=== PATIENT | male | born 1955 | race Caucasian/White ===

== ENCOUNTER → 2017-12-05 | Outpatient (CLI) | payer OTHER ==
--- NOTE | 2017-12-05 14:18 | RADIOLOGY REPORT (SQ) ---
EXAM DESCRIPTION: SHOULDER LEFT 2 OR MORE VIEWS COMPLETED DATE/TIME: 12/05/2017 1:02 pm REASON FOR STUDY: PAIN IN LEFT SHOULDER M25.512 PAIN IN LEFT SHOULDER COMPARISON: None. NUMBER OF VIEWS: Three views. TECHNIQUE: Internal rotation, external rotation, and Y view images acquired of the left shoulder. LIMITATIONS: None. FINDINGS: MINERALIZATION: Normal. BONES: No acute fracture or dislocation. No worrisome bone lesions. JOINTS: Moderate bony spurring at the AC joint and along the undersurface of the acromion. No AC kervin nt widening. No glenohumeral joint malalignment VISUALIZED LUNGS AND RIBS: No pneumothorax. No rib fracture. SOFT TISSUES: No radiopaque foreign body. OTHER: No other significant finding. IMPRESSION: No acute findings. Bony spurring at the AC joint and undersurface of the acromion. Thi s could correlate with rotator cuff disease TECHNICAL DOCUMENTATION: JOB ID: [id number] [employer]- All Rights Reserved Reading location - IP/workstation name: [email or web address]
== END ==
LOC: OD 12:26
PROVIDERS: ATTEND Family Medicine
DX: M25.512 Pain in left shoulder (principal)

== ENCOUNTER → 2017-12-27 | Outpatient (CLI) | payer OTHER ==
--- NOTE | 2017-12-27 15:33 | RADIOLOGY REPORT (SQ) ---
EXAM DESCRIPTION: MRI LT UPPER JOINT WITHOUT COMPLETED DATE/TIME: 12/27/2017 8:52 am REASON FOR STUDY: M25.512 PAIN LT SHLD,M75.102 ROTATOR CUFF TEAR, M75.02 ADH CAPSULITIS LT S M25.51 2 PAIN IN LEFT SHOULDER COMPARISON: None. TECHNIQUE: Left shoulder images acquired and stored on PACS. Multiplanar imaging to include fat sens itive sequences such as T1, water sensitive sequences such as FST2/STIR, cartilage sensitive sequence s such as FSPD/gradient-echo sequences. LIMITATIONS: Motion. Positioned in internal rotation. FINDINGS: BONE MARROW AND CORTEX: Enchondroma surgical neck. JOINT OR BURSAL EFFUSION: No significant bursal fluid accumulation. GLENO-HUMERAL ARTICULATION: Intact. Central cartilage loss. ACROMION AND AC JOINT: Type 2. Moderate AC joint arthropathy. ROTATOR CUFF AND INTERVAL: There is mild fatty infiltration of the teres minor. Diffuse tendinosis. Mild interstitial tearing and peritendinitis of the supraspinatus tendon. No full-thickness tear. Fibrosis in the rotator interval. Thickening of the inferior joint capsule. LABRUM AND BICEPS LABRAL COMPLEX: Attenuated biceps anchor. Fraying of the superior labrum without significant extension into the biceps. Distal biceps is normal. REMAINDER OF LABRUM AND IGHL : Intact. Mild thickening of the inferior glenohumeral ligament. PERIARTICULAR AND ADJACENT SOFT TISSUES: No masses or abnormal nodes. OTHER: No other significant finding. IMPRESSION: 1. Findings suggestive of adhesive capsulitis. 2. Cuff tendinosis. Mild interstitial tearing and peritendinitis of the supraspinatus tendon. Mild fatty infiltration of the teres minor. 3. Fraying of the superior labrum suggesting possible degenerative slap tear. No significant extensi on into the biceps. Tendinopathy and attenuated biceps. 4. AC joint arthropathy with narrowing of the subacromial space. TECHNICAL DOCUMENTATION: JOB ID: [id number] [employer]- All Rights Reserved Reading location - IP/workstation name: [email or web address]
== END ==
LOC: RAD 07:55
PROVIDERS: ATTEND Orthopaedic Surgery Sports Medicine
DX: M25.512 Pain in left shoulder (principal); M75.102 Unspecified rotator cuff tear or rupture of left shoulder, not specified as traumatic; M75.02 Adhesive capsulitis of left shoulder

== ENCOUNTER → 2018-04-27 | Outpatient (CLI) | payer OTHER ==
[2018-04-27 12:14] LABS: ABSOLUTE BASOPHILS # (AUTO) 0.1 10^3/uL (0.0-0.2); ABSOLUTE EOSINOPHILS # (AUTO) 0.2 10^3/uL (0.0-0.6); ABSOLUTE LYMPHOCYTES (AUTO) 2.1 10^3/uL (0.5-4.7); ABSOLUTE MONOCYTES (AUTO) 0.9 10^3/uL (0.1-1.4); ABSOLUTE NEUT (AUTO) 5.6 10^3/uL (1.7-8.2); BASOPHILS % (AUTO) 0.6 % (0-2); EOSINOPHILS % (AUTO) 2.7 % (0-6); HEMOGLOBIN 16.1 g/dL (13.5-17.0); LYMPHOCYTES % (AUTO) 23.4 % (13-45); MEAN CORPUSCULAR HEMOGLOBIN 28.5 pg (27.0-33.4); MEAN CORPUSCULAR HGB CONC 34.2 g/dL (32.0-36.0); MEAN CORPUSCULAR VOLUME 83 fl (80-97); MONOCYTES % (AUTO) 9.8 % (3-13); PLATELET COUNT 204 10^3/uL (150-450); RED BLOOD COUNT 5.65 10^6/uL (4.35-5.55); SEGMENTED NEUTROPHILS % (AUTO) 63.5 % (42-78); TOTAL CELLS COUNTED % (AUTO) 100 %; WHITE BLOOD COUNT 8.9 10^3/uL (4.0-10.5)
[2018-04-27 12:36] LABS: ALANINE AMINOTRANSFERASE 30 U/L (21-72); ALBUMIN 4.3 g/dL (3.5-5.0); ALKALINE PHOSPHATASE 89 U/L (38-126); ANION GAP 11 (5-19); ASPARTATE AMINO TRANSFERASE 21 U/L (17-59); BILIRUBIN,DIRECT 0.3 mg/dL (0.0-0.4); BILIRUBIN,TOTAL 0.3 mg/dL (0.2-1.3); BLOOD UREA NITROGEN 25 mg/dL (7-20); CALCIUM 9.5 mg/dL (8.4-10.2); CARBON DIOXIDE 23 mmol/L (22-30); CHLORIDE 107 mmol/L (98-107); GLUCOSE 210 mg/dL (75-110); POTASSIUM 4.3 mmol/L (3.6-5.0); SODIUM 140.9 mmol/L (137-145); TOTAL PROTEIN 7.4 g/dL (6.3-8.2)
--- NOTE | 2018-04-27 13:05 | EKG REPORT ---
SEVERITY:- OTHERWISE NORMAL ECG - SINUS RHYTHM BORDERLINE LEFT AXIS DEVIATION : Confirmed by: Keyshawn Barnes MD 27-Apr-2018 13:05:04
== END ==
LOC: OD 11:20
PROVIDERS: ATTEND Physician Assistant
DX: I10 Essential (primary) hypertension (principal); Z11.2 Encounter for screening for other bacterial diseases; M25.512 Pain in left shoulder
CPT/HCPCS: 36415; 80053; 83036; 85025; 87070; 93005; 93010

== ENCOUNTER → 2018-10-12 | Outpatient (CLI) | payer OTHER ==
--- NOTE | 2018-10-12 18:42 | RADIOLOGY REPORT (SQ) ---
EXAM DESCRIPTION: LUMBAR SPINE COMPLETE COMPLETED DATE/TIME: 10/12/2018 4:43 pm REASON FOR STUDY: RT HIP PAIN M25.551 PAIN IN RIGHT HIP COMPARISON: None. NUMBER OF VIEWS: Five views including obliques. TECHNIQUE: AP, lateral, oblique, and sacral radiographic images acquired of the lumbar spine. LIMITATIONS: None. FINDINGS: MINERALIZATION: Normal. SEGMENTATION: Normal. No transitional anatomy. ALIGNMENT: Normal. VERTEBRAE: Maintained height. No fracture or worrisome bone lesion. DISCS: Mild disc narrowing at L4-5. Marginal osteophytes are present. POSTERIOR ELEMENTS: Hypertrophic facet changes are present from L4-S1. HARDWARE: None in the spine. PARASPINAL SOFT TISSUES: Normal. PELVIS: Intact as visualized. No fractures or worrisome bone lesions. SI joints intact. OTHER: No other significant finding. IMPRESSION: Degenerative disc disease, spondylosis, and facet arthropathy. TECHNICAL DOCUMENTATION: JOB ID: [id number] [employer]- All Rights Reserved Reading location - IP/workstation name: [email or web address]
--- NOTE | 2018-10-12 18:42 | RADIOLOGY REPORT (SQ) ---
EXAM DESCRIPTION: HIP RIGHT AP/LATERAL COMPLETED DATE/TIME: 10/12/2018 4:43 pm REASON FOR STUDY: RT HIP PAIN M25.551 PAIN IN RIGHT HIP COMPARISON: None. NUMBER OF VIEWS: Two views. TECHNIQUE: AP pelvis and additional frog-leg view of the right hip. LIMITATIONS: None. FINDINGS: MINERALIZATION: Normal. RIGHT HIP: No fracture or dislocation. No worrisome bone lesions. LEFT HIP: No fracture or dislocation. No worrisome bone lesions. PUBIS AND ISCHIUM: No fracture. PELVIS: No fracture. SACRUM: No fracture or dislocation. No worrisome bone lesions. LOWER LUMBAR SPINE: No fracture or dislocation. No worrisome bone lesions. No significant disc disea se. SOFT TISSUES: No findings. OTHER: No other significant finding. IMPRESSION: NEGATIVE STUDY OF THE RIGHT HIP. NO RADIOGRAPHIC EVIDENCE OF ACUTE INJURY. TECHNICAL DOCUMENTATION: JOB ID: [id number] [employer]- All Rights Reserved Reading location - IP/workstation name: [email or web address]
== END ==
LOC: OD 16:24
PROVIDERS: ATTEND Family Medicine
DX: M25.551 Pain in right hip (principal); M51.36 Other intervertebral disc degeneration, lumbar region; M47.896 Other spondylosis, lumbar region
CPT/HCPCS: 72110

== ENCOUNTER → 2018-11-18 | Outpatient (CLI) | payer OTHER ==
--- NOTE | 2018-11-18 12:02 | RADIOLOGY REPORT (SQ) ---
EXAM DESCRIPTION: MRI LUMBAR SPINE WITHOUT COMPLETED DATE/TIME: 11/18/2018 8:11 am REASON FOR STUDY: ACUTE MIDLINE LOW BACK PAIN W/SCIATICA (M54.40) M54.10 RADICULOPATHY, SITE UNSPEC IFIED COMPARISON: Conventional radiographs dated 10/12/2018 TECHNIQUE: Sagittal and Axial imaging includes T1, T2, STIR and gradient echo sequences. Coronal T2/ HASTE imaging. LIMITATIONS: None. FINDINGS: VISUALIZED UPPER ABDOMEN: Limited evaluation. No acute or suspicious findings suggested. SEGMENTATION: No transitional anatomy. The lowest well-developed disc space is labeled L5-S1. ALIGNMENT: Anatomic. VERTEBRAE: Intact. BONE MARROW: Normal. No marrow replacement or reactive changes. DISC SIGNAL: Loss of normal water signal at L4-L5 to a lesser extent L5-S1. POSTERIOR ELEMENTS: Generally intact. No pars defect evident. HARDWARE: None in the spine. CORD AND CONUS: Normal in size and signal intensity. Conus at the appropriate level. SOFT TISSUES: No aortic aneurysm seen. No bulky retroperitoneal adenopathy or mass. No paraspinal mas s or fluid. L1-L2: No significant spinal stenosis or exit foraminal stenosis. L2-L3: No significant spinal stenosis or exit foraminal stenosis. L3-L4: No significant spinal stenosis or exit foraminal stenosis. L4-L5: There is annular bulging with a focal protrusion on the right. Despite this there is no nerve root impingement. Neural foramina are patent. There is bilateral facet arthropathy. L5-S1: Focal right lateral disc protrusion. This results in mass effect on the exiting right nerve r oot. There is facet arthropathy as well. LOWER THORACIC: Incompletely imaged. No stenosis seen. SACRUM: Visualized upper sacrum intact. OTHER: No other significant findings. IMPRESSION: Disc degenerative disease is limits at L4-L5 and L5-S1 as described above. There is a f ocal right lateral protrusion at L5-S1 resulting in mass effect on the exiting nerve root. TECHNICAL DOCUMENTATION: JOB ID: [id number] [employer]- All Rights Reserved Reading location - IP/workstation name: [email or web address]
== END ==
LOC: RAD 07:21
PROVIDERS: ATTEND Family Medicine
DX: M51.17 Intervertebral disc disorders with radiculopathy, lumbosacral region (principal)
CPT/HCPCS: 72148

== ENCOUNTER 2019-11-13 21:12 | Inpatient (IN) | payer OTHER ==
--- NOTE | 2019-11-13 21:46 | ER Document Report ---
ED Medical Screen (RME) - General Chief Complaint: Abdominal Pain >50 Stated Complaint: ABDOMINAL PAIN Time Seen by Provider: 11/13/19 21:40 Primary Care Provider: YASH PATEL MD [Primary Care Provider] - Follow up as needed Mode of Arrival: Wheelchair Information source: Patient Notes: Patient is a 64-year-old male comes emergency room complaining of severe abdo vishal pain. Patient states it started approximately 1 PM had sudden onset. Between then and 5 PM patient has developed increasing girth of his belly and increasing pain. He is also developed hiccups. Patient has a history of a cholecystectomy. He thinks he might have a history of a hernia in the past as well. But right now his pain is diffuse across his abdomen and he is exceptionally gassy. Physical examination: Patient is a well-nourished well-developed 64-year-old male who is morbidly obese however he he appears exceptionally uncomfortable in obvious discomfort and pain. In a sitting position patient appears miserable he is having hiccups every couple of minutes as well. Cardiac: Patient displays regular rate and rhythm with no murmurs noted on auscultation. Lungs: Bilateral breath sounds decreased throughout no rhonchi rales or wheeze are heard. Abdomen: Patient has bowel sounds vaguely in all quads but is distended. He also has moderate tympany noted in the upper and lower quadrants while in a sitting position so possibility of a perforation versus small bowel obstruction. I have greeted and performed a rapid initial assessment of this patient. A comprehensive ED assessment and evaluation of the patient, analysis of test results and completion of the medical decision making process will be conducted by additional ED providers. Dictation of this chart was performed using voice recognition software; therefore, there may be some unintended grammatical errors. TRAVEL OUTSIDE OF THE [place] IN LAST 30 DAYS: No - Related Data Allergies/Adverse Reactions: penicillin G [Penicillin G] Allergy (Verified 06/24/12 20:27) Past Medical History - Past Medical History Cardiac Medical History: Reports: Hx Hypercholesterolemia, Hx Hypertension Endocrine Medical History: Reports: Hx Diabetes Mellitus Type 2 Past Surgical History: Reports: Hx Adenoidectomy, Hx Orthopedic Surgery, Hx Tonsillectomy - and addenoids - Immunizations Immunizations up to date: No Hx Diphtheria, Pertussis, Tetanus Vaccination: No Physical Exam - Vital signs Vitals: Temp Pulse Resp BP Pulse Ox 97.6 F 93 18 144/104 H 93 11/13/19 21:18 11/13/19 21:18 11/13/19 21:18 11/13/19 21:18 11/13/19 21:18 Course - Vital Signs Vital signs: Temp Pulse Resp BP Pulse Ox 97.6 F 93 18 144/104 H 93 11/13/19 21:18 11/13/19 21:18 11/13/19 21:18 11/13/19 21:18 11/13/19 21:18 Doctor's Discharge - Discharge Referrals: YASH PATEL MD [Primary Care Provider] - Follow up as needed
--- NOTE | 2019-11-13 22:09 | RADIOLOGY REPORT (SQ) ---
EXAM DESCRIPTION: CT scan of the abdomen and pelvis without contrast CLINICAL HISTORY: 64 years Male; ? Perf TECHNIQUE: CT of the abdomen and pelvis with intravenous contrast.. Oral contrastWas not used. All CT scans at this facility use dose modulation, iterative reconstruction, and/or weight based dosing when appropriate to reduce radiation dose to as low as reasonably achievable. This exam was performed according to our department optimization program which includes automated exposure control, adjustment of the mA and/or kv according to patient size and/or use of iterative reconstruction technique. COMPARISON: CT scan of the abdomen and pelvis June 25, 2012 FINDINGS: Lower chest: Minimal dependent density in the lung bases. Heart size is normal. In the right posterior chest wall is a lobulated soft tissue mass with peripheral calcifications. It measures 4.9 x 3.8 cm. Previously it measured 4.3 x 3.4 cm. The mass indents the posterior aspect of the liver. It appears to be centered in the posterior chest wall. Given the presence of the lesion since 2012 and six only slight increase in size is most likely represents a process such as a neurofibroma. It appears to be associated with the undersurface of the lower right rib. Abdomen: Liver and biliary tree: The unenhanced liver is unremarkable. The gallbladder surgically absent. Pancreas: Normal Spleen:Within normal limits Kidneys: Kidneys are normal in size shape and position. There is mild perinephric soft tissue stranding which is similar to the previous exam. No stones or hydronephrosis. Adrenal glands:Within normal limits Vascular structures: Scattered vascular calcifications in the aorta. Retroperitoneum: No mass or lymphadenopathy Abdominal wall: normal GI: There is multiple moderately dilated loops of small bowel seen in the mid abdomen. The distal small bowel is decompressed in the colon is decompressed. The transition zone is in the left mid abdomen in the source of the obstruction is unclear. This may represent a process such as adhesions. Appendix: The appendix is not clearly seen General: No free air. No free fluid Pelvis: Lymph nodes: No mass or lymphadenopathy Bladder: Unremarkable. Pelvis: No pelvic mass or adenopathy. Bones: No acute bone findings. IMPRESSION: 1. Abnormal bowel gas pattern suggesting partial small bowel obstruction. The transition is in the left upper quadrant. The source of the bowel obstruction is unclear and this may represent adhesions. 2. Lobulated soft tissue mass with peripheral calcification seen in the right chest wall associated with the undersurface of a rib. This is only minimally increased in size when compared to an exam from 2013 suggesting a slow-growing process such as a neurofibroma or schwannoma.
[2019-11-13] MEDS ORDERED: ONDANSETRON HCL INJ/PF 4 MG/2 ML SDV IV ONE (23:20)
[2019-11-13] MEDS ORDERED: MORPHINE SULFATE 10 MG/ML INJ IV ONE (23:20)
[2019-11-13] MEDS ORDERED: NORMAL SALINE 1000 ML 1,000 ML IV ONE (23:20)
--- NOTE | 2019-11-13 23:22 | ER Document Report ---
ED GI/ - General Chief Complaint: Abdominal Pain >50 Stated Complaint: ABDOMINAL PAIN Time Seen by Provider: 11/13/19 21:40 Mode of Arrival: Wheelchair Notes: Patient is a 64-year-old male who comes emergency department for chief complaint of severe abdominal pain and swelling of the abdomen. He states that approxim ately 1 PM he suddenly started having discomfort, then around 5 PM he felt like his abdomen increased in size and he started having severe waves of pain. He states he got hiccups but he denies of nausea or vomiting. He had a bowel movement that was normal this morning. He has had a cholecystectomy, he denies any abdominal surgeries otherwise. He denies history of bowel obstruction. He has a history of hypertension, hyperlipidemia, type 2 diabetes. He denies smoking or alcohol. His primary care is Dr. Shah. TRAVEL OUTSIDE OF THE [place] IN LAST 30 DAYS: No - Related Data Allergies/Adverse Reactions: penicillin G [Penicillin G] Allergy (Verified 06/24/12 20:27) Past Medical History - General Information source: Patient - Social History Smoking Status: Never Smoker Frequency of alcohol use: None Drug Abuse: None Lives with: Family Family History: Reviewed & Not Pertinent - Past Medical History Cardiac Medical History: Reports: Hx Hypercholesterolemia, Hx Hypertension Endocrine Medical History: Reports: Hx Diabetes Mellitus Type 2 Past Surgical History: Reports: Hx Adenoidectomy, Hx Orthopedic Surgery, Hx Tonsillectomy - and addenoids - Immunizations Hx Diphtheria, Pertussis, Tetanus Vaccination: Yes Review of Systems - Review of Systems Constitutional: No symptoms reported EENT: No symptoms reported Cardiovascular: No symptoms reported Respiratory: No symptoms reported Gastrointestinal: See HPI Genitourinary: No symptoms reported Male Genitourinary: No symptoms reported Musculoskeletal: No symptoms reported Skin: No symptoms reported Hematologic/Lymphatic: No symptoms reported Neurological/Psychological: No symptoms reported Physical Exam - Vital signs Vitals: Temp Pulse Resp BP Pulse Ox 97.6 F 93 18 144/104 H 93 11/13/19 21:18 11/13/19 21:18 11/13/19 21:18 11/13/19 21:18 11/13/19 21:18 - Notes Notes: GENERAL: Alert, interacts well. Appears slightly uncomfortable HEAD: Normocephalic, atraumatic. EYES: Pupils equal, round, and reactive to light. Extraocular movements intact. ENT: Oral mucosa moist, tongue midline. Oropharynx unremarkable. Airway patent. LUNGS: Clear to auscultation bilaterally, no wheezes, rales, or rhonchi. No respiratory distress. Non-tender chest wall. HEART: Regular rate and rhythm. No murmur ABDOMEN: Distended and generally tender although there is no guarding, rigidity, or rebound tenderness. Bowel sounds are quiet. EXTREMITIES: Moves all 4 extremities spontaneously. No edema, normal radial and dorsalis pedis pulses bilaterally. No cyanosis. BACK: no cervical, thoracic, lumbar midline tenderness. No saddle anesthesia, normal distal neurovascular exam. Moves all extremities in full range of motion. NEUROLOGICAL: Alert and oriented x3. Normal speech. Cranial nerves II through XII grossly intact. Strength 5/5 in all extremities. PSYCH: Normal affect, normal mood. SKIN: Warm, dry, normal turgor. No rashes or lesions noted. Course - Re-evaluation Re-evalutation: Patient with an obese and also a slightly distended abdomen which is firm but not rigid, there is some generalized tenderness but no guarding, patient is slightly uncomfortable but does not appear to be in distress. Vital signs unremarkable. CBC shows leukocytosis at 17,000 with elevation of neutrophils. Chemistry unremarkable. Lactic acid is not elevated. Urine unremarkable. I did review CAT scan of the abdomen pelvis without IV or oral contrast from triage and this does indicate developing versus present small bowel obstruction with transition point. No other acute findings. Patient comfortable after medications. Will discuss with general surgery. Discussed with Dr. Michel, he reviewed the imaging, he recommends NG tube and accepts patient to admission under his service. I discussed this with patient and significant other, they state appreciation and agreement with plan. - Vital Signs Vital signs: Temp Pulse Resp BP Pulse Ox 97.4 F 101 H 18 161/77 H 96 11/14/19 03:12 11/14/19 03:12 11/14/19 03:12 11/14/19 03:12 11/14/19 03:12 - Laboratory Result Diagrams: 11/13/19 23:20 11/13/19 23:20 Laboratory results interpreted by me: 11/13/19 11/13/19 11/13/19 23:20 23:20 23:20 WBC 17.2 H RBC 5.94 H RDW 15.7 H Seg Neuts % (Manual) 95 H Band Neutrophils % 1 L Lymphocytes % (Manual) 2 L Monocytes % (Manual) 2 L Abs Neuts (Manual) 16.5 H Abs Lymphs (Manual) 0.3 L Sodium 136.1 L BUN 22 H Glucose 272 H Urine Glucose (UA) >=500 H Urine Ketones 20 H Discharge - Discharge Clinical Impression: Small bowel obstruction Abdominal pain Qualifiers: Abdominal location: generalized Qualified Code(s): R10.84 - Generalized abdominal pain Condition: Stable Disposition: ADMITTED INPATIENT Admitting Provider: Surgicalist Unit Admitted: Surgical Floor
[2019-11-13 23:44] LABS: HEMOGLOBIN 16.9 g/dL (13.5-17.0); MEAN CORPUSCULAR HEMOGLOBIN 28.5 pg (27.0-33.4); MEAN CORPUSCULAR HGB CONC 33.2 g/dL (32.0-36.0); MEAN CORPUSCULAR VOLUME 86 fl (80-97); PLATELET COUNT 206 10^3/uL (150-450); RED BLOOD COUNT 5.94 10^6/uL (4.35-5.55); RED CELL DISTRIBUTION WIDTH 15.7 % (11.5-14.0); WHITE BLOOD COUNT 17.2 10^3/uL (4.0-10.5)
[2019-11-13 23:54] LABS: ALBUMIN 4.8 g/dL (3.5-5.0); ALKALINE PHOSPHATASE 78 U/L (38-126); ANION GAP 12 (5-19); ASPARTATE AMINO TRANSFERASE 27 U/L (17-59); BILIRUBIN,DIRECT 0.1 mg/dL (0.0-0.4); BILIRUBIN,TOTAL 0.7 mg/dL (0.2-1.3); BLOOD UREA NITROGEN 22 mg/dL (7-20); CALCIUM 9.9 mg/dL (8.4-10.2); CARBON DIOXIDE 25 mmol/L (22-30); CHLORIDE 99 mmol/L (98-107); GLUCOSE 272 mg/dL (75-110); POTASSIUM 4.9 mmol/L (3.6-5.0); TOTAL PROTEIN 8.1 g/dL (6.3-8.2)
[2019-11-13 23:56] LABS: APPEARANCE,URINE CLEAR; BILIRUBIN,URINE NEGATIVE (NEGATIVE); COLOR,URINE YELLOW; GLUCOSE, URINE >=500 mg/dL (NEGATIVE); KETONES,URINE 20 mg/dL (NEGATIVE); LEUKOCYTE ESTERASE,URINE NEGATIVE (NEGATIVE); NITRITE,URINE NEGATIVE (NEGATIVE); PROTEIN,URINE NEGATIVE (NEGATIVE); UROBILINOGEN,URINE NEGATIVE mg/dL (<2.0)
[2019-11-14 00:02] LABS: ABSOLUTE LYMPHOCYTES# (MANUAL) 0.3 10^3/uL (0.5-4.7); ABSOLUTE MONOCYTES # (MANUAL) 0.3 10^3/uL (0.1-1.4); BAND NEUTROPHILS % (MANUAL) 1 % (3-5); BASOPHILS % (MANUAL) 0 % (0-2); EOSINOPHILS % (MANUAL) 0 % (0-6); LYMPHOCYTES % (MANUAL) 2 % (13-45); MONOCYTES % (MANUAL) 2 % (3-13); SEGMENTED NEUTROPHILS % (MAN) 95 % (42-78); TOTAL CELLS COUNTED 100
[2019-11-14 00:05] LABS: ANISOCYTOSIS SLIGHT; PLATELET COMMENT ADEQUATE
[2019-11-14] MEDS ORDERED: ONDANSETRON HCL INJ/PF 4 MG/2 ML SDV IV PRN (01:20)
[2019-11-14] MEDS ORDERED: DEXTROSE 50%-WATER 25 GM/50 ML DISP.SYRIN IV PRN ×2 (01:25)
[2019-11-14] MEDS ORDERED: DEXTROSE 40% GEL 15 GM TUBE PO PRN ×2 (01:25)
[2019-11-14] MEDS ORDERED: GLUCAGON,HUMAN RECOMB 1 MG INJ IM PRN (01:25)
--- NOTE | 2019-11-14 02:56 | RADIOLOGY REPORT (SQ) ---
EXAM DESCRIPTION: XR ABDOMEN 1 VIEW (KUB) COMPLETED DATE/TME: 11/14/2019 00:00 CLINICAL HISTORY: ng tube placement COMPARISON: 11/13/2019 FINDINGS: NG tube with tip and side-port curled in the stomach. Dilated loops of small bowel again identified. No free intraperitoneal air. Degenerative change of the spine. Prior cholecystectomy. IMPRESSION: 1. NG tube in appropriate position. 2. Findings compatible small bowel obstruction.
[2019-11-14] MEDS: MORPHINE SULFATE 10 MG/ML INJ IV PRN ×4 (03:36→21:30)
[2019-11-14] MEDS: POTASSI CL 20 MEQ/1/2NS 1L 20 MEQ/1,000 ML RTUINJ IV PRN ×2 (03:36→15:08)
[2019-11-14] MEDS: INSULIN LISPRO 100 UNIT/ML 3 ML VIAL SUBCUT SCH ×4 (08:32→21:52)
--- NOTE | 2019-11-14 09:58 | PDOC H&P ---
History of Present Illness Admission Date/PCP: 11/14/19 01:30 YASH PATEL MD Patient complains of: Abdominal pain and nausea History of Present Illness: HCUCKY VASQUEZ is a 64 year old male with a 1 day history of sharp, stabbing abdominal pain and nausea. The patient reports his pain is rated as 8 out of 10. It waxes and wanes, but never goes away. It does not radiate. He has had nausea, without vomiting. The last time he passed flatus was yesterday. He has not had a bowel movement in 2 days. The patient presented to the emergency room, where a CT scan was obtained showing a small bowel obstruction. The patient was admitted for treatment. The patient reports that he feels "much better" after having an NG tube placed. The patient denies chest pain, shortness of breath, headache, fevers, chills, melena, hematochezia, hematemesis, orthostasis, fatigue, or malaise. Past Medical History Cardiac Medical History: Reports: Hyperlipidema, Hypertension Endocrine Medical History: Reports: Diabetes Mellitus Type 2 Psychiatric Medical History: Denies: Depression Past Surgical History Past Surgical History: Reports: Orthopedic Surgery, Tonsillectomy - and addenoids Social History Lives with: Family Smoking Status: Never Smoker Electronic Cigarette use?: No Frequency of Alcohol Use: None Hx Recreational Drug Use: No Drugs: None Hx Prescription Drug Abuse: No Family History Family History: Reviewed & Not Pertinent Parental Family History Reviewed: Yes Children Family History Reviewed: Yes Sibling(s) Family History Reviewed.: Yes Medication/Allergy Home Medications: Glimepiride [Amaryl 4 Mg Tablet] 8 mg PO QHS 06/24/12 Empagliflozin/Metformin HCl [Synjardy Xr 12.5-1,000 mg Tab] 1 tab PO BID 11/14/19 Insulin Degludec [Tresiba Flextouch U-200] 100 units SUBCUT QHS 11/14/19 Lisinopril/Hydrochlorothiazide [Lisinopril-Hctz 10-12.5 mg Tab] 1 tab PO DAILY 11/14/19 Pioglitazone HCl [Actos 30 mg Tablet] 30 mg PO DAILY 11/14/19 Semaglutide [Ozempic] 0.25 mg SUBCUT WE@1000 PRN 11/14/19 Simvastatin [Zocor 10 mg Tablet] 10 mg PO QHS 11/14/19 Allergies/Adverse Reactions: penicillin G [Penicillin G] Allergy (Verified 06/24/12 20:27) Review of Systems Constitutional: ABSENT: anorexia, chills, fatigue, fever(s), headache(s) Eyes: ABSENT: visual disturbances Ears: ABSENT: hearing changes Nose, Mouth, and Throat: ABSENT: sore throat Cardiovascular: ABSENT: chest pain Respiratory: ABSENT: cough Gastrointestinal: PRESENT: abdominal pain, bloating, nausea. ABSENT: hematemesis, hematochezia, melena, vomiting Genitourinary: ABSENT: dysuria Musculoskeletal: ABSENT: back pain Integumentary: ABSENT: pruritus, rash Neurological: ABSENT: confusion, convulsions, dizziness Psychiatric: ABSENT: anxiety, depression Endocrine: ABSENT: cold intolerance, heat intolerance Hematologic/Lymphatic: ABSENT: easy bleeding, easy bruising Physical Exam Vital Signs: Temp Pulse Resp BP Pulse Ox 97.6 F 94 16 138/79 H 94 11/14/19 07:33 11/14/19 07:33 11/14/19 07:33 11/14/19 07:33 11/14/19 07:33 Intake & Output 11/13/19 11/14/19 11/15/19 06:59 06:59 06:59 Intake Total 1000 Output Total 100 Balance 900 Weight 121 kg General appearance: PRESENT: no acute distress, cooperative Head exam: PRESENT: atraumatic, normocephalic Eye exam: PRESENT: EOMI, PERRLA. ABSENT: scleral icterus Mouth exam: PRESENT: neck supple Neck exam: ABSENT: meningismus, tenderness, thyromegaly, tracheal deviation Respiratory exam: PRESENT: unlabored. ABSENT: chest wall tenderness, tachypnea, wheezes Cardiovascular exam: ABSENT: tachycardia Vascular exam: PRESENT: normal capillary refill GI/Abdominal exam: PRESENT: distended - mild, soft. ABSENT: rigid, tenderness Rectal exam: PRESENT: deferred Extremities exam: ABSENT: clubbing Musculoskeletal exam: ABSENT: deformity Neurological exam: PRESENT: alert, awake, oriented to person, oriented to place, oriented to time, oriented to situation, CN II-XII grossly intact. ABSENT: motor sensory deficit Psychiatric exam: ABSENT: agitated, anxious, depressed Focused psych exam: ABSENT: delusional Skin exam: ABSENT: cyanosis, erythema, jaundice Results Laboratory Results: 11/13/19 23:20 11/13/19 23:20 11/13/19 11/13/19 11/13/19 23:20 23:20 23:20 WBC 17.2 H RBC 5.94 H Hgb 16.9 Hct 51.0 MCV 86 MCH 28.5 MCHC 33.2 RDW 15.7 H Plt Count 206 Seg Neutrophils % Not Reportable Sodium 136.1 L Potassium 4.9 Chloride 99 Carbon Dioxide 25 Anion Gap 12 BUN 22 H Creatinine 1.16 Est GFR ( Amer) > 60 Glucose 272 H Lactic Acid Calcium 9.9 Total Bilirubin 0.7 AST 27 Alkaline Phosphatase 78 Total Protein 8.1 Albumin 4.8 Lipase 164.8 Urine Color YELLOW Urine Appearance CLEAR Urine pH 5.0 Ur Specific [place] 1.030 Urine Protein NEGATIVE Urine Glucose (UA) >=500 H Urine Ketones 20 H Urine Blood NEGATIVE Urine Nitrite NEGATIVE Ur Leukocyte Esterase NEGATIVE Urine WBC (Auto) 0 11/14/19 00:45 WBC RBC Hgb Hct MCV MCH MCHC RDW Plt Count Seg Neutrophils % Sodium Potassium Chloride Carbon Dioxide Anion Gap BUN Creatinine Est GFR ( Amer) Glucose Lactic Acid 1.2 Calcium Total Bilirubin AST Alkaline Phosphatase Total Protein Albumin Lipase Urine Color Urine Appearance Urine pH Ur Specific [place] Urine Protein Urine Glucose (UA) Urine Ketones Urine Blood Urine Nitrite Ur Leukocyte Esterase Urine WBC (Auto) Impressions: Abdomen/Pelvis CT 11/13/19 21:40 IMPRESSION: 1. Abnormal bowel gas pattern suggesting partial small bowel obstruction. The transition is in the left upper quadrant. The source of the bowel obstruction is unclear and this may represent adhesions. 2. Lobulated soft tissue mass with peripheral calcification seen in the right chest wall associated with the undersurface of a rib. This is only minimally increased in size when compared to an exam from 2013 suggesting a slow-growing process such as a neurofibroma or schwannoma. KUB X-Ray 11/14/19 00:00 IMPRESSION: 1. NG tube in appropriate position. 2. Findings compatible small bowel obstruction. Assessment & Plan - Diagnosis (1) Abdominal pain Qualifiers: Abdominal location: generalized Qualified Code(s): R10.84 - Generalized abdominal pain Is this a current diagnosis for this admission?: Yes (2) Small bowel obstruction Is this a current diagnosis for this admission?: Yes - Plan Summary Plan Summary: This is a 64-year-old male, without a significant surgical history, presenting with signs of a bowel obstruction on noncontrasted CT scan. I will admit the patient to the hospital, initiate IV fluids, and maintain NG decompression. I will order a small bowel follow-through in hopes of better identifying the area of obstruction, if present. We will await these results, before deciding further steps in care. Continue NG decompression for now.
--- NOTE | 2019-11-14 21:56 | RADIOLOGY REPORT (SQ) ---
EXAM DESCRIPTION: Small bowel follow-through performed on 11/14/2019 12:00 AM CDT CLINICAL HISTORY: 64 years Male, eval for SBO. contrast through NG; ; COMPARISON: Prior CT dated 11/13/2019 FINDINGS: 12 radiographs were obtained. Initial images at 1032 hours reveal an enteric drainage tube with its tip located in the gastric body. Contrast is evident about the gastric antrum as well as within the small bowel. On the two-hour post-administration radiograph, the pre-existing oral contrast material which was located within the small bowel has dissipated. Instead, a large amount of contrast material simply resides within the gastric fundus/body. Likewise, there is persistent diffuse dilatation of small bowel loops throughout the abdomen with additional moderate amount of colonic stool. On the 4 hour post-administration radiograph, there is persistent diffuse dilatation of small bowel loops throughout the abdomen. Pre-existing oral contrast material within the gastric fundus/body remains unchanged in configuration from the previous 2 hour radiograph. Subsequent AR radiographs were acquired. These radiographs demonstrate persistent diffuse dilatation of small bowel loops throughout the abdomen. Only a small amount of contrast material extends into the gastric antrum/duodenal bulb. The majority of the oral contrast material still resides within the gastric fundus/body. IMPRESSION: Findings are consistent with small bowel obstruction. The administered oral contrast material mostly remains within the gastric fundus/body on the 8 hour post-administration radiographs, indicating delayed transit of material into the small bowel.
[2019-11-15] MEDS: POTASSI CL 20 MEQ/1/2NS 1L 20 MEQ/1,000 ML RTUINJ IV PRN (00:22)
[2019-11-15 06:35] LABS: ABSOLUTE LYMPHOCYTES (AUTO) 1.1 10^3/uL (0.5-4.7); ABSOLUTE MONOCYTES (AUTO) 1.3 10^3/uL (0.1-1.4); ABSOLUTE NEUT (AUTO) 12.1 10^3/uL (1.7-8.2); BASOPHILS % (AUTO) 0.3 % (0-2); EOSINOPHILS % (AUTO) 0.3 % (0-6); HEMATOCRIT 48.6 % (37.9-51.0); LYMPHOCYTES % (AUTO) 7.3 % (13-45); MEAN CORPUSCULAR HEMOGLOBIN 28.4 pg (27.0-33.4); MEAN CORPUSCULAR VOLUME 86 fl (80-97); MONOCYTES % (AUTO) 8.8 % (3-13); PLATELET COUNT 206 10^3/uL (150-450); RED BLOOD COUNT 5.63 10^6/uL (4.35-5.55); RED CELL DISTRIBUTION WIDTH 15.9 % (11.5-14.0); SEGMENTED NEUTROPHILS % (AUTO) 83.3 % (42-78); TOTAL CELLS COUNTED % (AUTO) 100 %; WHITE BLOOD COUNT 14.6 10^3/uL (4.0-10.5)
[2019-11-15 07:06] LABS: ANION GAP 14 (5-19); BLOOD UREA NITROGEN 29 mg/dL (7-20); CALCIUM 9.3 mg/dL (8.4-10.2); CARBON DIOXIDE 21 mmol/L (22-30); CHLORIDE 105 mmol/L (98-107); GLUCOSE 196 mg/dL (75-110); POTASSIUM 5.2 mmol/L (3.6-5.0)
[2019-11-15] MEDS: INSULIN LISPRO 100 UNIT/ML 3 ML VIAL SUBCUT SCH ×4 (07:59→23:29)
[2019-11-15] MEDS: MORPHINE SULFATE 10 MG/ML INJ IV PRN ×2 (08:02→19:50)
[2019-11-15] MEDS ORDERED: POTASSI CL 20 MEQ/1/2NS 1L 20 MEQ/1,000 ML RTUINJ IV PRN (08:33)
--- NOTE | 2019-11-15 08:38 | PDOC PROGRESS REPORT ---
Subjective Progress Note for:: 11/15/19 Reason For Visit: SMALL BOWL OBSTRUCTION Patient states he is on abdominal pain, requiring narcotics. States he passed gas x2. NG tube drained 800 cc overnight Physical Exam Vital Signs: Temp Pulse Resp BP Pulse Ox 98.2 F 105 H 15 142/80 H 94 11/15/19 00:00 11/15/19 00:00 11/15/19 00:00 11/15/19 00:00 11/15/19 00:00 Intake & Output 11/14/19 11/15/19 11/16/19 06:59 06:59 06:59 Intake Total 1000 1923 Output Total 100 2024 Balance 900 -102 Weight 121 kg 120.6 kg General appearance: PRESENT: well-nourished, other - Discomfort GI/Abdominal exam: PRESENT: other - Abdomen is distended, diffusely tender to deep palpation. Hypoactive bowel sounds. Results Laboratory Results: 11/15/19 06:17 11/15/19 06:17 11/15/19 11/15/19 06:17 06:17 WBC 14.6 H RBC 5.63 H Hgb 16.0 Hct 48.6 MCV 86 MCH 28.4 MCHC 33.0 RDW 15.9 H Plt Count 206 Seg Neutrophils % 83.3 H Sodium 140.0 Potassium 5.2 H Chloride 105 Carbon Dioxide 21 L Anion Gap 14 BUN 29 H Creatinine 1.27 H Est GFR ( Amer) > 60 Glucose 196 H Calcium 9.3 Impressions: Abdomen/Pelvis CT 11/13/19 21:40 IMPRESSION: 1. Abnormal bowel gas pattern suggesting partial small bowel obstruction. The transition is in the left upper quadrant. The source of the bowel obstruction is unclear and this may represent adhesions. 2. Lobulated soft tissue mass with peripheral calcification seen in the right chest wall associated with the undersurface of a rib. This is only minimally increased in size when compared to an exam from 2013 suggesting a slow-growing process such as a neurofibroma or schwannoma. KUB X-Ray 11/14/19 00:00 IMPRESSION: 1. NG tube in appropriate position. 2. Findings compatible small bowel obstruction. Small Bowel X-Ray 11/14/19 00:00 IMPRESSION: Findings are consistent with small bowel obstruction. The administered oral contrast material mostly remains within the gastric fundus/body on the 8 hour post-administration radiographs, indicating delayed transit of material into the small bowel. Assessment & Plan - Diagnosis (1) Small bowel obstruction Is this a current diagnosis for this admission?: Yes Plan: Impression: Persisting abdominal distention, pain, nasogastric drainage all concerning for small bowel obstruction and diabetic with dehydration Conditions: 1. Increase IV fluids 2. Consult internal medicine 3. Check abdominal film; patient may require exploratory laparotomy (2) Diabetes mellitus Is this a current diagnosis for this admission?: Yes (3) Acute renal insufficiency Is this a current diagnosis for this admission?: Yes (4) Dehydration Is this a current diagnosis for this admission?: Yes (5) Abdominal pain Qualifiers: Abdominal location: generalized Qualified Code(s): R10.84 - Generalized abdominal pain Is this a current diagnosis for this admission?: Yes
--- NOTE | 2019-11-15 10:07 | RADIOLOGY REPORT (SQ) ---
EXAM DESCRIPTION: KUB/ABDOMEN (SINGLE VIEW) IMAGES COMPLETED DATE/TIME: 11/15/2019 9:56 am REASON FOR STUDY: sbo COMPARISON: 11/14/2019 NUMBER OF VIEWS: One view. TECHNIQUE: Supine radiographic image of the abdomen acquired. LIMITATIONS: None. FINDINGS: BOWEL GAS PATTERN: There is contrast in the colon. Persistent small-bowel distention. Fi ndings would suggest either adynamic ileus or partial small bowel obstruction. CALCIFICATIONS: No suspicious calcifications. SOFT TISSUES: No gross mass or suggestion of organomegaly. HARDWARE: None in the abdomen. BONES: No acute fracture. No worrisome bone lesions. OTHER: No other significant finding. IMPRESSION: Contrast has reached the colon. Findings are consistent with either adynamic ileus or p artial small bowel obstruction. TECHNICAL DOCUMENTATION: JOB ID: [id number] 2010 [employer]- All Rights Reserved Reading location - IP/workstation name: [email or web address]
[2019-11-15] MEDS ORDERED: SUCCINYLCHOLINE CHLORIDE INJ 200 MG/10 ML VIAL ONE (12:24)
[2019-11-15] MEDS ORDERED: LIDOCAINE 2% INJ-PF (20 MG/ML) 2 ML AMPUL ONE (12:24)
[2019-11-15] MEDS ORDERED: KETOROLAC TROMETHAMINE 60 MG/2 ML SDV ONE (12:24)
[2019-11-15] MEDS ORDERED: ROCURONIUM BROMIDE INJ 50 MG/5 ML VIAL IV ONE (12:24)
[2019-11-15] MEDS ORDERED: DEXAMETHASONE SOD PHOSPHATE INJ 4 MG/1 ML VIAL ONE (12:24)
[2019-11-15] MEDS ORDERED: ONDANSETRON HCL INJ/PF 4 MG/2 ML SDV ONE (12:24)
--- NOTE | 2019-11-15 12:33 | PDOC CONSULTATION ---
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 hyperlipidemia and morbid obesityCame to the emergency department with the complaint was severe abdominal pain and nausea and vomiting Patients have a history of the cholecystectomy in 2012 Patient's denied any previous heart disease Patient's denied any contact with any COVID In the emergency department patient's CT scan of the abdomen pelvis suggest a small bowel obstructions and patient admitting in the surgical service Surgery wants to follow the medical management Patient is currently have a type 2 diabetes and insulin-dependent currently stable see the joiner helper Hypertensions currently all well controlled Patient's last LDL less than 100 Patient's denied any smoking no alcohol Patient's otherwise doing fair after putting the NG tube still burping and surgery planning to do the laparotomy today With the multiple risk factor we will get the cardiac clearance before the surgery and the COVID testings before the surgery Past Medical History Cardiac Medical History: Reports: Hyperlipidema, Hypertension Endocrine Medical History: Reports: Diabetes Mellitus Type 2 Psychiatric Medical History: Denies: Depression Past Surgical History Past Surgical History: Reports: Cholecystectomy, Orthopedic Surgery, Tonsillectomy - and addenoids Social History Lives with: Family Smoking Status: Never Smoker Electronic Cigarette use?: No Frequency of Alcohol Use: None Hx Recreational Drug Use: No Drugs: None Hx Prescription Drug Abuse: No - Advance Directive Resuscitation Status: Full Code Family History Family History: Reviewed & Not Pertinent Parental Family History Reviewed: Yes Children Family History Reviewed: Yes Sibling(s) Family History Reviewed.: Yes Medication/Allergy Home Medications: Glimepiride [Amaryl 4 Mg Tablet] 8 mg PO QHS 06/24/12 Empagliflozin/Metformin HCl [Synjardy Xr 12.5-1,000 mg Tab] 1 tab PO BID 11/14/19 Insulin Degludec [Tresiba Flextouch U-200] 100 units SUBCUT QHS 11/14/19 Lisinopril/Hydrochlorothiazide [Lisinopril-Hctz 10-12.5 mg Tab] 1 tab PO DAILY 11/14/19 Pioglitazone HCl [Actos 30 mg Tablet] 30 mg PO DAILY 11/14/19 Semaglutide [Ozempic] 0.25 mg SUBCUT WE@1000 PRN 11/14/19 Simvastatin [Zocor 10 mg Tablet] 10 mg PO QHS 11/14/19 Allergies/Adverse Reactions: penicillin G [Penicillin G] Allergy (Verified 06/24/12 20:27) Review of Systems Constitutional: ABSENT: chills, fever(s), headache(s), weight gain, weight loss Eyes: ABSENT: visual disturbances Ears: ABSENT: hearing changes Cardiovascular: ABSENT: chest pain, dyspnea on exertion, edema, orthropnea, palpitations Respiratory: ABSENT: cough, hemoptysis Gastrointestinal: PRESENT: abdominal pain, nausea, vomiting. ABSENT: constipation, diarrhea, hematemesis, hematochezia Genitourinary: ABSENT: dysuria, hematuria Musculoskeletal: ABSENT: joint swelling Integumentary: ABSENT: rash, wounds Neurological: ABSENT: abnormal gait, abnormal speech, confusion, dizziness, focal weakness, syncope Psychiatric: ABSENT: anxiety, depression, homidical ideation, suicidal ideation Endocrine: ABSENT: cold intolerance, heat intolerance, menstrual abnormalities, polydipsia, polyuria Hematologic/Lymphatic: ABSENT: easy bleeding, easy bruising, lymphadenopathy Physical Exam Vital Signs: Temp Pulse Resp BP Pulse Ox 97.7 F 100 20 145/73 H 94 11/15/19 08:00 11/15/19 08:00 11/15/19 08:00 11/15/19 08:00 11/15/19 08:00 Intake & Output 11/14/19 11/15/19 11/16/19 06:59 06:59 06:59 Intake Total 1000 1923 827 Output Total 100 2025 Balance 900 -102 827 Weight 121 kg 120.6 kg General appearance: PRESENT: no acute distress, morbidly obese, well-developed, well-nourished Head exam: PRESENT: atraumatic, normocephalic Eye exam: PRESENT: conjunctiva pink, EOMI, PERRLA. ABSENT: scleral icterus Ear exam: PRESENT: normal external ear exam Mouth exam: PRESENT: moist, tongue midline Neck exam: PRESENT: full ROM. ABSENT: carotid bruit, JVD, lymphadenopathy, thyromegaly Cardiovascular exam: PRESENT: RRR. ABSENT: diastolic murmur, rubs, systolic murmur Pulses: PRESENT: normal dorsalis pedis pul, +2 pedal pulses bilateral Vascular exam: PRESENT: normal capillary refill GI/Abdominal exam: PRESENT: hypoactive bowel sounds, tenderness. ABSENT: distended, guarding, mass, organolmegaly, rebound Rectal exam: PRESENT: deferred Neurological exam: PRESENT: alert, awake, oriented to person, oriented to place, oriented to time, oriented to situation, CN II-XII grossly intact. ABSENT: motor sensory deficit Psychiatric exam: PRESENT: appropriate affect, normal mood. ABSENT: homicidal ideation, suicidal ideation Skin exam: PRESENT: dry, intact, warm. ABSENT: cyanosis, rash Results Laboratory Results: 11/15/19 06:17 11/15/19 06:17 11/15/19 11/15/19 06:17 06:17 WBC 14.6 H RBC 5.63 H Hgb 16.0 Hct 48.6 MCV 86 MCH 28.4 MCHC 33.0 RDW 15.9 H Plt Count 206 Seg Neutrophils % 83.3 H Sodium 140.0 Potassium 5.2 H Chloride 105 Carbon Dioxide 21 L Anion Gap 14 BUN 29 H Creatinine 1.27 H Est GFR ( Amer) > 60 Glucose 196 H Calcium 9.3 Impressions: Abdomen/Pelvis CT 11/13/19 21:40 IMPRESSION: 1. Abnormal bowel gas pattern suggesting partial small bowel obstruction. The transition is in the left upper quadrant. The source of the bowel obstruction is unclear and this may represent adhesions. 2. Lobulated soft tissue mass with peripheral calcification seen in the right chest wall associated with the undersurface of a rib. This is only minimally increased in size when compared to an exam from 2013 suggesting a slow-growing process such as a neurofibroma or schwannoma. Small Bowel X-Ray 11/14/19 00:00 IMPRESSION: Findings are consistent with small bowel obstruction. The administered oral contrast material mostly remains within the gastric fundus/body on the 8 hour post-administration radiographs, indicating delayed transit of material into the small bowel. KUB X-Ray 11/15/19 06:00 IMPRESSION: Contrast has reached the colon. Findings are consistent with either adynamic ileus or partial small bowel obstruction. Assessment & Plan - Diagnosis (1) Abdominal pain Qualifiers: Abdominal location: generalized Qualified Code(s): R10.84 - Generalized abdominal pain Is this a current diagnosis for this admission?: Yes Plan: Patient is most likely small bowel obstructions currently follow with the lashell pepper (2) Hypertension Qualifiers: Hypertension type: essential hypertension Qualified Code(s): I10 - Essential (primary) hypertension Is this a current diagnosis for this admission?: Yes Plan: Currently all stable (3) Acute renal insufficiency Is this a current diagnosis for this admission?: Yes Plan: Continues to IV fluid (4) Dehydration Is this a current diagnosis for this admission?: Yes Plan: Continues to IV fluid (5) Diabetes mellitus Qualifiers: Diabetes mellitus type: type 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 (6) Small bowel obstruction Is this a current diagnosis for this admission?: Yes Plan: Currently on NG tube n.p.o. and IV fluid will correct the electrolytes - Time Time Spent: 50 to 70 Minutes Medications reviewed and adjusted accordingly: Yes Anticipated discharge: Home Anticipated DC Timeframe: Other - Inpatient Certification Based on my medical assessment, after consideration of the patient's comorbidities, presenting symptoms, or acuity I expect that the services needed warrant INPATIENT care.: Yes I certify that my determination is in accordance with my understanding of [facility] 's requirements for reasonable and necessary INPATIENT services [42 CFR 412.3e].: Yes Medical Necessity: Significant Comorbidiites Make Outpatient Treatment Too Risky, Need Close Monitoring Due to Risk of Patient Decompensation, Need For IV Fluids, Need for Surgery Post Hospital Care: 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
[2019-11-15] MEDS: NORMAL SALINE 1000 ML 1,000 ML IV PRN ×2 (12:56→22:48)
[2019-11-15] MEDS ORDERED: BUPIVACAINE INJ/PF LIPOSOME/PF 266 MG/20 ML SDV ONE ×2 (13:32→15:53)
--- NOTE | 2019-11-15 14:28 | XCELERA REPORT ---
[address] [address] Transthoracic Echocardiogram Report Name: CHUCKY VASQUEZ Age: 64 yrs Gender: Male : 1955 Patient Status: Inpatient Patient Location: [address] [place], [place] [address] Study Date: 11/15/2019 12:19 PM Height: 71 in Weight: 265 lb BSA: 2.4 m2 Procedure: A complete two-dimensional transthoracic echocardiogram was performed (2D, M-mode, spectral and color flow Doppler). The study was technically difficult with many images being suboptimal in quality. Reason For Study: htn/dm/sob/pre op Ordering Physician: YASH PATEL Performed By: Maribel Terry Interpretation Summary FINDINGS: technically difficult. LEFT VENTRICLE: LV Systolic function: LVEF is felt to be within normal limits. Best estimate is approximately LVEF is 60 to 65%. LV Diastolic Function: Grade II diastolic dysfunction noted. Wall motion: not all wall segment were well visualised. Regional wall motion cannot be accurately commented upon. Left ventricular chamber size: is within normal limit. Left ventricular wall thickness: is increased indicative of borderline LVH. RIGHT VENTRICLE: RV systolic function: is felt to be within normal limit. Right Ventricle Size: is borderline enlarged. LEFT ATRIUM size: is WNL. RIGHT ATRIUM size: is within normal limit. INTER ATRIAL SEPTUM: No definite atrial septal defect noted however a small PFO could be missed. AORTIC ROOT: seems to be within normal limits. ASCENDING AORTA: is not well visualized. INFERIOR VENA CAVA: was not well visualized. VALVES: MITRAL VALVE: Leaflets are mildly thickened. Mobility seems to be within normal limits. Mitral Regurgitation: Trace mitral regurgitation is noted. Mitral Stenosis: No mitral stenosis noted. Mitral valve prolapse: none noted. AORTIC VALVE: all leaflets not well visualised but with mild thickening and adequate excursion. Aortic stenosis: No aortic stenosis noted. Aortic regurgitation: No aortic incompetence noted. TRICUSPID VALVE: mobility and structures within normal limit. Tricuspid stenosis: no tricuspid stenosis noted. Tricuspid regurgitation: trace to mild tricuspid regurgitation noted. Estimated RVS : 30-35 mm Hg consistent with borderline pulmonary hypertension. PULMONARY VALVE: was not well visualized but no significant abnormalities suspected. Pulmonary stenosis: no pulmonary stenosis noted. Pulmonary regurgitation: no significant pulmonary regurgitation noted. MASSES AND THROMBUS: No definite intracardiac thrombus or masses are noted. PERICARDIUM: No pericardial effusion was noted. IMPRESSION: 1. Normal LVEF. 2. Borderline LVH noted. 3. Grade II Diastolic Dysfunction noted. 4. No significant valvular stenosis or regurgitation noted. 5. Right ventricle is borderline dilated. RVSP borderline elevated, consistent with borderline pulmonary hypertension. 6. Echocardiogram was technically difficult therefore clinical correlation is requested. MMode/2D Measurements & Calculations RVDd: 2.6 cm LVIDd: 5.5 cm FS: 34.8 % Ao root diam: 3.7 cm IVSd: 1.2 cm LVIDs: 3.6 cm EDV(Teich): 144.8 ml Ao root area: 10.5 cm2 LVPWd: 1.2 cm ESV(Teich): 52.8 ml EF(Teich): 63.5 % Doppler Measurements & Calculations MV E max anisa: MV dec slope: Ao V2 max: LV V1 max P.3 cm/sec 471.2 cm/sec2 129.8 cm/sec 5.1 mmHg MV A max anisa: MV dec time: 0.19 secAo max PG: LV V1 max: 131.9 cm/sec 6.7 mmHg 112.9 cm/sec MV E/A: 0.66 PA V2 max: TR max anisa: 78.3 cm/sec 260.0 cm/sec PA max P.5 mmHg TR max P.0 mmHg : YASH PATEL Shyamal
--- NOTE | 2019-11-15 14:32 | EKG REPORT ---
SEVERITY:- OTHERWISE NORMAL ECG - SINUS TACHYCARDIA BORDERLINE LEFT AXIS DEVIATION : Confirmed by: Kaylen Kam MD 15-Nov-2019 14:32:00
[2019-11-15] MEDS ORDERED: FENTANYL CITRATE INJ/PF 100 MCG/2 ML AMPUL ONE (14:47)
[2019-11-15] MEDS ORDERED: FENTANYL CITRATE INJ/PF 250 MCG/5 ML AMPULE ONE (14:47)
[2019-11-15] MEDS ORDERED: MIDAZOLAM 2 MG/2 ML INJ ONE (14:47)
[2019-11-15] MEDS ORDERED: MORPHINE SULFATE 10 MG/ML INJ ONE (14:48)
[2019-11-15] MEDS ORDERED: PROPOFOL INJ 200 MG/20 ML VIAL IV ONE (14:48)
[2019-11-15] MEDS ORDERED: METRONIDAZOLE 500 MG/NS RTU 500 MG/100 ML RTUPB IV ONE (15:07)
[2019-11-15] MEDS ORDERED: SUGAMMADEX SODIUM 200 MG/2 ML SDV IV ONE (15:48)
[2019-11-15] MEDS ORDERED: FENTANYL CITRATE INJ/PF 100 MCG/2 ML AMPUL IV PRN ×3 (16:07)
[2019-11-15] MEDS ORDERED: DIPHENHYDRAMINE HCL 50 MG/ML VIAL IV PRN (16:07)
[2019-11-15] MEDS ORDERED: PROMETHAZINE HCL INJ 25 MG/1 ML VIAL IV PRN ×2 (16:07)
[2019-11-15] MEDS ORDERED: MEPERIDINE HCL/PF INJ 25 MG/1 ML DISP.SYRIN IV PRN (16:07)
[2019-11-15] MEDS ORDERED: MORPHINE SULFATE 10 MG/ML INJ IV PRN (16:07)
--- NOTE | 2019-11-15 16:31 | Operative Report ---
Operative Report DATE OF SURGERY: 11/15/19 PREOPERATIVE DIAGNOSIS: 1. Incomplete small bowel obstruction. 2. Diabetes m ellitus. 3. Obesity POSTOPERATIVE DIAGNOSIS: Same with patient of the anterior abdominal wall kinking the jejunum OPERATION: 1. Exploratory laparotomy. 2. Lysis of adhesions. 3. Deployment of Exparel into the subcutaneous tissues SURGEON: SUDHAKAR TAYLOR ANESTHESIA: GA TISSUE REMOVED OR ALTERED: none COMPLICATIONS: None ESTIMATED BLOOD LOSS: 20 cc INTRAOPERATIVE FINDINGS: See below PROCEDURE: The patient was taken from the preop holding area to the main operating room where general anesthesia was induced. Castanon catheter was inserted. The abdomen was exposed, clipped of hair, prepped and draped in sterile fashion with Betadine Surgical plan and surgical timeout were conducted. The abdomen was opened through a standard midline incision above and below the umbilicus through an incision approximately 13 cm in length. The peritoneal cavity was sharply entered. There was no evidence of pus, stool, only minimal ascites. There were multiple dilated loops of small bowel, injected and violaceous in areas. I extended the incision a little bit below the umbilicus, and there was a loop of small bowel adhesed to the anterior abdominal wall likely at the site of the patient's previous laparoscopy scar. The loop of bowel was taken down sharply with scissors. Once this loop was relieved, I was able to open up the midline fascia for the entire length of the skin incision. I eviscerated the small bowel in its entirety. Proximally in the first portion of the jejunum the patient was found to have a incidental diverticulum. The small bowel was dilated primarily in the distal jejunum to the point of the previously released adhesion. Distal to the adhesion the small bowel slowly assumed a more normal caliber, and the ileum was essentially unremarkable. Manual palpation of the colon Including the right, transverse, left as well as the rectosigmoid area revealed no pathology. We checked the position of the NG tube and is felt to be satisfactory. We now milked the dilated jejunum in a retrograde fashion advancing the fluid and air up into the stomach where it was decompressed through the previously placed nasogastric tube. Once this was accomplished, the small bowel began to lysed in appearance, particularly the several loops of injected bowel with the violaceous transverse streaking. Bowel was not frankly ischemic so it was left as is. We inspected the antimesenteric side of the distal jejunum at the site of the adhesio lysis and there was felt to be no violation of the bowel. This point we felt the operation was complete. There was no indication to extend the incision and explore the patient any further. Sponge and needle counts are correct. Small little bleeders from the skin and subcutaneous tissue were cauterized. The abdominal wall was closed with 2 double-stranded #1 PDS sutures, the skin approximated analia. Sterile honeycomb dressing applied. Patient tolerated procedure well, extubated, and taken to recovery in stable condition. Abdominal binder was placed in the recovery room.
[2019-11-15] MEDS: PANTOPRAZOLE SODIUM 40 MG VIAL IV SCH (21:12)
[2019-11-16] MEDS: NORMAL SALINE 1000 ML 1,000 ML IV PRN ×4 (04:03→21:22)
[2019-11-16] MEDS: INSULIN LISPRO 100 UNIT/ML 3 ML VIAL SUBCUT SCH ×4 (06:14→23:48)
[2019-11-16 07:22] LABS: ABSOLUTE MONOCYTES (AUTO) 1.4 10^3/uL (0.1-1.4); ABSOLUTE NEUT (AUTO) 10.5 10^3/uL (1.7-8.2); BASOPHILS % (AUTO) 0.3 % (0-2); EOSINOPHILS % (AUTO) 0.3 % (0-6); HEMATOCRIT 48.2 % (37.9-51.0); HEMOGLOBIN 15.6 g/dL (13.5-17.0); LYMPHOCYTES % (AUTO) 7.4 % (13-45); MEAN CORPUSCULAR HEMOGLOBIN 28.2 pg (27.0-33.4); MEAN CORPUSCULAR HGB CONC 32.3 g/dL (32.0-36.0); MEAN CORPUSCULAR VOLUME 87 fl (80-97); MONOCYTES % (AUTO) 10.7 % (3-13); PLATELET COUNT 185 10^3/uL (150-450); RED BLOOD COUNT 5.52 10^6/uL (4.35-5.55); RED CELL DISTRIBUTION WIDTH 15.8 % (11.5-14.0); SEGMENTED NEUTROPHILS % (AUTO) 81.3 % (42-78); TOTAL CELLS COUNTED % (AUTO) 100 %; WHITE BLOOD COUNT 12.9 10^3/uL (4.0-10.5)
[2019-11-16 07:48] LABS: ANION GAP 10 (5-19); BLOOD UREA NITROGEN 33 mg/dL (7-20); CALCIUM 8.4 mg/dL (8.4-10.2); CARBON DIOXIDE 23 mmol/L (22-30); CHLORIDE 110 mmol/L (98-107); GLUCOSE 159 mg/dL (75-110); POTASSIUM 5.1 mmol/L (3.6-5.0)
--- NOTE | 2019-11-16 09:08 | PDOC PROGRESS REPORT ---
Subjective Progress Note for:: 11/16/19 Subjective:: feels ok this am min pain Reason For Visit: SMALL BOWL OBSTRUCTION Physical Exam Vital Signs: Temp Pulse Resp BP Pulse Ox 97.5 F 106 H 17 130/67 H 95 11/15/19 22:00 11/15/19 22:00 11/15/19 22:00 11/15/19 22:00 11/15/19 22:00 Intake & Output 11/15/19 11/16/19 11/17/19 06:59 06:59 06:59 Intake Total 1922 3400 Output Total 2024 2424 Balance -102 975 Weight 120.6 kg 120.6 kg General appearance: PRESENT: no acute distress Head exam: PRESENT: normocephalic Eye exam: PRESENT: EOMI Ear exam: PRESENT: normal external ear exam Mouth exam: PRESENT: moist Neck exam: PRESENT: full ROM Respiratory exam: PRESENT: clear to auscultation imelda Cardiovascular exam: PRESENT: RRR Pulses: PRESENT: normal femoral pulses, normal dorsalis pedis pul Vascular exam: PRESENT: normal capillary refill Breast: PRESENT: Normal GI/Abdominal exam: PRESENT: soft, other - wound clean dry. Rectal exam: PRESENT: deferred Extremities exam: PRESENT: full ROM Musculoskeletal exam: PRESENT: full ROM Neurological exam: PRESENT: awake, oriented to person, oriented to place Psychiatric exam: PRESENT: appropriate affect Skin exam: PRESENT: dry Results Laboratory Results: 11/16/19 06:22 11/16/19 06:22 11/15/19 11/16/19 11/16/19 06:17 06:22 06:22 WBC 12.9 H RBC 5.52 Hgb 15.6 Hct 48.2 MCV 87 MCH 28.2 MCHC 32.3 RDW 15.8 H Plt Count 185 Seg Neutrophils % 81.3 H Sodium 142.9 Potassium 5.1 H Chloride 110 H Carbon Dioxide 23 Anion Gap 10 BUN 33 H Creatinine 1.16 Est GFR ( Amer) > 60 Glucose 159 H Calcium 8.4 Lipase 156.0 Impressions: Abdomen/Pelvis CT 11/13/19 21:40 IMPRESSION: 1. Abnormal bowel gas pattern suggesting partial small bowel obstruction. The transition is in the left upper quadrant. The source of the bowel obstruction is unclear and this may represent adhesions. 2. Lobulated soft tissue mass with peripheral calcification seen in the right chest wall associated with the undersurface of a rib. This is only minimally increased in size when compared to an exam from 2013 suggesting a slow-growing process such as a neurofibroma or schwannoma. Small Bowel X-Ray 11/14/19 00:00 IMPRESSION: Findings are consistent with small bowel obstruction. The administered oral contrast material mostly remains within the gastric fundus/body on the 8 hour post-administration radiographs, indicating delayed transit of material into the small bowel. KUB X-Ray 11/15/19 06:00 IMPRESSION: Contrast has reached the colon. Findings are consistent with either adynamic ileus or partial small bowel obstruction. Assessment & Plan - Plan Summary Plan Summary: pod 1 from ex lap for sbo and lysis of adhesions doing ok this am feesl ok c/o ng tube plan dc rivers ambulate await return of bowel function.
[2019-11-16] MEDS: PANTOPRAZOLE SODIUM 40 MG VIAL IV SCH ×2 (10:04→21:14)
--- NOTE | 2019-11-16 10:46 | PDOC PROGRESS REPORT ---
Subjective Progress Note for:: 11/16/19 Subjective:: Patient underwent further expiratory laparotomy for this partial small bowel obstructions currently doing well Patient's denied any chest pain no short of breath Patient seen by the surgery today postoperatively suggest to walk in hallway continues the NG tube still good output in the NG tube Patient unable to use a CPAP due to the NG tube last night Reason For Visit: SMALL BOWL OBSTRUCTION Physical Exam Vital Signs: Temp Pulse Resp BP Pulse Ox 97.9 F 79 21 H 129/60 H 97 11/16/19 08:53 11/16/19 08:53 11/16/19 08:53 11/16/19 08:53 11/16/19 08:53 Intake & Output 11/15/19 11/16/19 11/17/19 06:59 06:59 06:59 Intake Total 1922 3400 1000 Output Total 2024 2425 700 Balance -102 975 300 Weight 120.6 kg 120.6 kg General appearance: PRESENT: no acute distress, well-developed, well-nourished Head exam: PRESENT: atraumatic, normocephalic Eye exam: PRESENT: conjunctiva pink, EOMI, PERRLA. ABSENT: scleral icterus Ear exam: PRESENT: normal external ear exam Mouth exam: PRESENT: moist, tongue midline Neck exam: PRESENT: full ROM. ABSENT: carotid bruit, JVD, lymphadenopathy, thy romegaly Respiratory exam: PRESENT: clear to auscultation imelda Cardiovascular exam: PRESENT: RRR. ABSENT: diastolic murmur, rubs, systolic murmur Pulses: PRESENT: normal dorsalis pedis pul, +2 pedal pulses bilateral Vascular exam: PRESENT: normal capillary refill GI/Abdominal exam: ABSENT: distended, guarding, mass, organolmegaly, rebound, tenderness Additonal comments: Surgical dressing is intact Rectal exam: PRESENT: deferred Neurological exam: PRESENT: alert, awake, oriented to person, oriented to place, oriented to time, oriented to situation, CN II-XII grossly intact. ABSENT: motor sensory deficit Psychiatric exam: PRESENT: appropriate affect, normal mood. ABSENT: homicidal ideation, suicidal ideation Skin exam: PRESENT: dry, intact, warm. ABSENT: cyanosis, rash Results Laboratory Results: 11/16/19 06:22 11/16/19 06:22 11/15/19 11/16/19 11/16/19 06:17 06:22 06:22 WBC 12.9 H RBC 5.52 Hgb 15.6 Hct 48.2 MCV 87 MCH 28.2 MCHC 32.3 RDW 15.8 H Plt Count 185 Seg Neutrophils % 81.3 H Sodium 142.9 Potassium 5.1 H Chloride 110 H Carbon Dioxide 23 Anion Gap 10 BUN 33 H Creatinine 1.16 Est GFR ( Amer) > 60 Glucose 159 H Calcium 8.4 Lipase 156.0 Impressions: Abdomen/Pelvis CT 11/13/19 21:40 IMPRESSION: 1. Abnormal bowel gas pattern suggesting partial small bowel obstruction. The transition is in the left upper quadrant. The source of the bowel obstruction is unclear and this may represent adhesions. 2. Lobulated soft tissue mass with peripheral calcification seen in the right chest wall associated with the undersurface of a rib. This is only minimally increased in size when compared to an exam from 2012 suggesting a slow-growing process such as a neurofibroma or schwannoma. Small Bowel X-Ray 11/14/19 00:00 IMPRESSION: Findings are consistent with small bowel obstruction. The administered oral contrast material mostly remains within the gastric fundus/body on the 8 hour post-administration radiographs, indicating delayed transit of material into the small bowel. KUB X-Ray 11/15/19 06:00 IMPRESSION: Contrast has reached the colon. Findings are consistent with either adynamic ileus or partial small bowel obstruction. Assessment & Plan - Diagnosis (1) Abdominal pain Qualifiers: Abdominal location: generalized Qualified Code(s): R10.84 - Generalized abdominal pain Is this a current diagnosis for this admission?: Yes Plan: Status post laparotomy for small bowel obstructions (2) Hypertension Qualifiers: Hypertension type: essential hypertension Qualified Code(s): I10 - Essential (primary) hypertension Is this a current diagnosis for this admission?: Yes Plan: Currently all stable (3) Acute renal insufficiency Is this a current diagnosis for this admission?: Yes Plan: Continues the IV fluid (4) Dehydration Is this a current diagnosis for this admission?: Yes Plan: Continues to IV fluid (5) Diabetes mellitus Qualifiers: Diabetes mellitus type: type 2 Diabetes mellitus custodial insulin use: with rodent exterminator use Is this a current diagnosis for this admission?: Yes Plan: We will continue sliding-scale every 6 tomorrow while the patient is n.p.o. (6) Small bowel obstruction Is this a current diagnosis for this admission?: Yes Plan: Status post surgery postop day #1 (7) Sleep apnea Qualifiers: Sleep apnea type: obstructive Qualified Code(s): G47.33 - Obstructive sleep apnea (adult) (pediatric) Is this a current diagnosis for this admission?: Yes Plan: Patient is once NG tube out able to use the CPAP continue CPAP - Time Time Spent with patient: 15-24 minutes Level of Care: IMCU Medications reviewed and adjusted accordingly: Yes Anticipated discharge: Home Anticipated DC Timeframe: Other - Plan Summary Plan Summary: Continues to current medications
[2019-11-16] MEDS: MORPHINE SULFATE 10 MG/ML INJ IV PRN ×2 (11:20→21:13)
--- NOTE | 2019-11-16 11:46 | CDI QUERY ---
CDI Query CDI Review: We are seeking further clarification of documentation to reflect the severity of illness of your patient. Noted in the Progress Notes: Acute renal insufficiency Is this a current diagnosis for this admission?: Yes Plan: Continues the IV fluid Labs: BUN / Cr on admission .27 Based on your medical judgement, can you further clarify in the Progress Notes: Acute renal failure Acute kidney injury 2/2 ATN CKD (please stage) Unable to determine Other Thank you for your consideration. LORAINE RidleyN RN Clinical Oil Producer Physician Advisor [email or web address]
--- NOTE | 2019-11-16 19:24 | PDOC PROGRESS REPORT ---
Subjective Progress Note for:: 11/16/19 Subjective:: Patient postop day 1. He was cleared for surgery yesterday after reviewing 2D echo. Patient EKG was noted to be nonacute. Patient had a surgical emergency therefore was cleared for surgery verbally. Patient was seen earlier this evening. He is noted to be doing better. Still has the NG tube in. He did not want me to palpate his abdomen. Reason For Visit: SMALL BOWL OBSTRUCTION Physical Exam Vital Signs: Temp Pulse Resp BP Pulse Ox 99.4 F 99 17 113/52 L 92 11/16/19 17:04 11/16/19 17:04 11/16/19 17:04 11/16/19 17:04 11/16/19 17:04 Intake & Output 11/15/19 11/16/19 11/17/19 06:59 06:59 06:59 Intake Total 1922 3400 2000 Output Total 2024 2425 1150 Balance -102 975 850 Weight 120.6 kg 120.6 kg 119.1 kg Exam: GENERAL: well-nourished and in no acute distress. Alert and oriented x3, NG tube in place. HEAD: Atraumatic, normocephalic. EYES: KEN, sclera anicteric, conjunctiva are normal. ENT: Moist mucous membranes. No oral ulcerations or bleeding gums noted. No obvious ear, nose or throat abnormalities noted. NECK: supple without lymphadenopathy. Trachea is central. No cervical or axillary lymphadenopathy noted. Carotids are 2+, JVD WNL LUNGS: Breath sounds clear bilaterally. No wheezes rales or rhonchi noted. No significant dullness noted on percussion. CHEST: Palpation of the chest wall shows no significant chest wall tenderness. 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 ABDOMEN: Soft, no significant tenderness appreciated, normoactive bowel sounds. No guarding, no rebound. No rigidity noted . No masses appreciated. EXTREMITIES: Pedal pulses are 1-2+, no calf tenderness noted. No clubbing or cyanosis. negative pedal edema noted NEUROLOGICAL: Focused neurological exam showed no significant neurologic deficit. Normal speech, no focal weakness appreciated. PSYCH: Normal mood, normal affect. Judgment and insight within normal limits. SKIN: No significant ecchymosis, skin is noted to be warm. MUSCULOSKELETAL EXAM: No significant acute joint swelling noted. Results Laboratory Results: 11/16/19 06:22 11/16/19 06:22 11/16/19 11/16/19 06:22 06:22 WBC 12.9 H RBC 5.52 Hgb 15.6 Hct 48.2 MCV 87 MCH 28.2 MCHC 32.3 RDW 15.8 H Plt Count 185 Seg Neutrophils % 81.3 H Sodium 142.9 Potassium 5.1 H Chloride 110 H Carbon Dioxide 23 Anion Gap 10 BUN 33 H Creatinine 1.16 Est GFR ( Amer) > 60 Glucose 159 H Calcium 8.4 EKG Comments: Telemetry strip shows sinus rhythm. No significant tachycardia or bradycardia noted. Impressions: Abdomen/Pelvis CT 11/13/19 21:40 IMPRESSION: 1. Abnormal bowel gas pattern suggesting partial small bowel obstruction. The transition is in the left upper quadrant. The source of the bowel obstruction is unclear and this may represent adhesions. 2. Lobulated soft tissue mass with peripheral calcification seen in the right chest wall associated with the undersurface of a rib. This is only minimally increased in size when compared to an exam from 2013 suggesting a slow-growing process such as a neurofibroma or schwannoma. Small Bowel X-Ray 11/14/19 00:00 IMPRESSION: Findings are consistent with small bowel obstruction. The administered oral contrast material mostly remains within the gastric fundus/body on the 8 hour post-administration radiographs, indicating delayed transit of material into the small bowel. KUB X-Ray 11/15/19 06:00 IMPRESSION: Contrast has reached the colon. Findings are consistent with either adynamic ileus or partial small bowel obstruction. Assessment & Plan - Diagnosis (1) Diabetes mellitus Qualifiers: Diabetes mellitus type: type 2 Diabetes mellitus half-way insulin use: with rodent exterminator use Diabetes mellitus complication status: with other specified complication Qualified Code(s): E11.69 - Type 2 diabetes mellitus with other specified complication; Z79.4 - MCC (current) use of insulin Is this a current diagnosis for this admission?: Yes (2) Hypertension Qualifiers: Hypertension type: essential hypertension Qualified Code(s): I10 - Essential (primary) hypertension Is this a current diagnosis for this admission?: Yes (3) Sleep apnea Qualifiers: Sleep apnea type: obstructive Qualified Code(s): G47.33 - Obstructive sleep apnea (adult) (pediatric) Is this a current diagnosis for this admission?: Yes (4) Small bowel obstruction Is this a current diagnosis for this admission?: Yes - Notes Notes: Patient doing reasonably well postop day 1. He is denying any chest pains or shortness of breath. He is noted to be generally comfortable. At this point, we will continue to follow. 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 2D echo results were reviewed. Once patient off the NG tube, consider restarting CPAP therapy at home setting. - Time Time with patient: 15-25 minutes
[2019-11-17] MEDS: NORMAL SALINE 1000 ML 1,000 ML IV PRN ×3 (04:04→17:19)
[2019-11-17] MEDS: INSULIN LISPRO 100 UNIT/ML 3 ML VIAL SUBCUT SCH ×3 (06:14→18:04)
[2019-11-17 06:19] LABS: ABSOLUTE EOSINOPHILS # (AUTO) 0.2 10^3/uL (0.0-0.6); ABSOLUTE LYMPHOCYTES (AUTO) 1.1 10^3/uL (0.5-4.7); ABSOLUTE MONOCYTES (AUTO) 1.1 10^3/uL (0.1-1.4); BASOPHILS % (AUTO) 0.2 % (0-2); EOSINOPHILS % (AUTO) 1.4 % (0-6); HEMATOCRIT 47.8 % (37.9-51.0); HEMOGLOBIN 15.6 g/dL (13.5-17.0); LYMPHOCYTES % (AUTO) 8.6 % (13-45); MEAN CORPUSCULAR HEMOGLOBIN 28.5 pg (27.0-33.4); MEAN CORPUSCULAR HGB CONC 32.6 g/dL (32.0-36.0); MEAN CORPUSCULAR VOLUME 88 fl (80-97); MONOCYTES % (AUTO) 9.1 % (3-13); PLATELET COUNT 185 10^3/uL (150-450); RED BLOOD COUNT 5.46 10^6/uL (4.35-5.55); RED CELL DISTRIBUTION WIDTH 15.7 % (11.5-14.0); SEGMENTED NEUTROPHILS % (AUTO) 80.7 % (42-78); TOTAL CELLS COUNTED % (AUTO) 100 %; WHITE BLOOD COUNT 12.4 10^3/uL (4.0-10.5)
[2019-11-17 06:35] LABS: ALBUMIN 3.6 g/dL (3.5-5.0); ALKALINE PHOSPHATASE 58 U/L (38-126); ANION GAP 11 (5-19); ASPARTATE AMINO TRANSFERASE 19 U/L (17-59); BILIRUBIN,DIRECT 0.2 mg/dL (0.0-0.4); BILIRUBIN,TOTAL 0.8 mg/dL (0.2-1.3); BLOOD UREA NITROGEN 24 mg/dL (7-20); CALCIUM 8.4 mg/dL (8.4-10.2); CARBON DIOXIDE 19 mmol/L (22-30); CHLORIDE 114 mmol/L (98-107); GLUCOSE 172 mg/dL (75-110); TOTAL PROTEIN 6.5 g/dL (6.3-8.2)
[2019-11-17] MEDS: PANTOPRAZOLE SODIUM 40 MG VIAL IV SCH ×2 (09:16→21:07)
[2019-11-17] MEDS: MORPHINE SULFATE 10 MG/ML INJ IV PRN ×2 (09:27→21:07)
--- NOTE | 2019-11-17 09:35 | PDOC PROGRESS REPORT ---
Subjective Progress Note for:: 11/17/19 Subjective:: Patient is postop day #2 Currently doing fair Still not passing any gas No chest pain no short of breath Patient's pain is under control Reason For Visit: SMALL BOWL OBSTRUCTION Physical Exam Vital Signs: Temp Pulse Resp BP Pulse Ox 97.8 F 91 17 146/75 H 97 11/16/19 23:31 11/16/19 23:31 11/16/19 23:31 11/16/19 23:31 11/16/19 23:31 Intake & Output 11/16/19 11/17/19 11/18/19 06:59 06:59 06:59 Intake Total 3400 3963 1000 Output Total 2425 2750 Balance 975 1213 1000 Weight 120.6 kg 120.6 kg General appearance: PRESENT: no acute distress, well-developed, well-nourished Head exam: PRESENT: atraumatic, normocephalic Eye exam: PRESENT: conjunctiva pink, EOMI, PERRLA. ABSENT: scleral icterus Ear exam: PRESENT: normal external ear exam Mouth exam: PRESENT: moist, tongue midline Neck exam: PRESENT: full ROM. ABSENT: carotid bruit, JVD, lymphadenopathy, thyromegaly Respiratory exam: PRESENT: clear to auscultation imelda Cardiovascular exam: PRESENT: RRR. ABSENT: diastolic murmur, rubs, systolic murmur Pulses: PRESENT: normal dorsalis pedis pul, +2 pedal pulses bilateral Vascular exam: PRESENT: normal capillary refill GI/Abdominal exam: ABSENT: distended, guarding, mass, organolmegaly, rebound, tenderness Additonal comments: Surgical dressing is intact Rectal exam: PRESENT: deferred Neurological exam: PRESENT: alert, awake, oriented to person, oriented to place, oriented to time, oriented to situation, CN II-XII grossly intact. ABSENT: motor sensory deficit Psychiatric exam: PRESENT: appropriate affect, normal mood. ABSENT: homicidal ideation, suicidal ideation Skin exam: PRESENT: dry, intact, warm. ABSENT: cyanosis, rash Results Laboratory Results: 11/17/19 06:00 11/17/19 06:00 11/17/19 11/17/19 06:00 06:00 WBC 12.4 H RBC 5.46 Hgb 15.6 Hct 47.8 MCV 88 MCH 28.5 MCHC 32.6 RDW 15.7 H Plt Count 185 Seg Neutrophils % 80.7 H Sodium 143.7 Potassium 5.0 Chloride 114 H Carbon Dioxide 19 L Anion Gap 11 BUN 24 H Creatinine 0.98 Est GFR ( Amer) > 60 Glucose 172 H Calcium 8.4 Total Bilirubin 0.8 AST 19 Alkaline Phosphatase 58 Total Protein 6.5 Albumin 3.6 Impressions: Abdomen/Pelvis CT 11/13/19 21:40 IMPRESSION: 1. Abnormal bowel gas pattern suggesting partial small bowel obstruction. The transition is in the left upper quadrant. The source of the bowel obstruction is unclear and this may represent adhesions. 2. Lobulated soft tissue mass with peripheral calcification seen in the right chest wall associated with the undersurface of a rib. This is only minimally increased in size when compared to an exam from 2013 suggesting a slow-growing process such as a neurofibroma or schwannoma. Small Bowel X-Ray 11/14/19 00:00 IMPRESSION: Findings are consistent with small bowel obstruction. The administered oral contrast material mostly remains within the gastric fundus/body on the 8 hour post-administration radiographs, indicating delayed transit of material into the small bowel. KUB X-Ray 11/15/19 06:00 IMPRESSION: Contrast has reached the colon. Findings are consistent with either adynamic ileus or partial small bowel obstruction. Assessment & Plan - Diagnosis (1) Abdominal pain Qualifiers: Abdominal location: generalized Qualified Code(s): R10.84 - Generalized abdominal pain Is this a current diagnosis for this admission?: Yes Plan: Status post laparotomy for small bowel obstructions (2) Hypertension Qualifiers: Hypertension type: essential hypertension Qualified Code(s): I10 - Essential (primary) hypertension Is this a current diagnosis for this admission?: Yes (3) Acute renal insufficiency Is this a current diagnosis for this admission?: Yes Plan: Continues the IV fluid (4) Dehydration Is this a current diagnosis for this admission?: Yes Plan: Continues to IV fluid (5) Diabetes mellitus Qualifiers: Diabetes mellitus type: type 2 Diabetes mellitus terminologist insulin use: with terminologist use Diabetes mellitus complication status: with other specified complication Qualified Code(s): E11.69 - Type 2 diabetes mellitus with other specified complication; Z79.4 - emt intermediate (current) use of insulin Is this a current diagnosis for this admission?: Yes (6) Small bowel obstruction Is this a current diagnosis for this admission?: Yes Plan: Status post postop day #2 (7) Sleep apnea Qualifiers: Sleep apnea type: obstructive Qualified Code(s): G47.33 - Obstructive sleep apnea (adult) (pediatric) Is this a current diagnosis for this admission?: Yes Plan: Continues uses CPAP once NG tube out - Time Time Spent with patient: 15-24 minutes Level of Care: TELE Medications reviewed and adjusted accordingly: Yes Anticipated discharge: Home Anticipated DC Timeframe: Other - Plan Summary Plan Summary: Continues to current medications Patient's blood sugar blood pressure under well control With the surgery
--- NOTE | 2019-11-17 10:23 | PDOC PROGRESS REPORT ---
Subjective Progress Note for:: 11/17/19 Reason For Visit: SMALL BOWL OBSTRUCTION Physical Exam Vital Signs: Temp Pulse Resp BP Pulse Ox 97.8 F 91 17 146/75 H 97 11/16/19 23:31 11/16/19 23:31 11/16/19 23:31 11/16/19 23:31 11/16/19 23:31 Intake & Output 11/16/19 11/17/19 11/18/19 06:59 06:59 06:59 Intake Total 3400 3963 1000 Output Total 2425 2750 Balance 975 1213 1000 Weight 120.6 kg 120.6 kg Results Laboratory Results: 11/17/19 06:00 11/17/19 06:00 11/17/19 11/17/19 06:00 06:00 WBC 12.4 H RBC 5.46 Hgb 15.6 Hct 47.8 MCV 88 MCH 28.5 MCHC 32.6 RDW 15.7 H Plt Count 185 Seg Neutrophils % 80.7 H Sodium 143.7 Potassium 5.0 Chloride 114 H Carbon Dioxide 19 L Anion Gap 11 BUN 24 H Creatinine 0.98 Est GFR ( Amer) > 60 Glucose 172 H Calcium 8.4 Total Bilirubin 0.8 AST 19 Alkaline Phosphatase 58 Total Protein 6.5 Albumin 3.6 Impressions: Abdomen/Pelvis CT 11/13/19 21:40 IMPRESSION: 1. Abnormal bowel gas pattern suggesting partial small bowel obstruction. The transition is in the left upper quadrant. The source of the bowel obstruction is unclear and this may represent adhesions. 2. Lobulated soft tissue mass with peripheral calcification seen in the right chest wall associated with the undersurface of a rib. This is only minimally increased in size when compared to an exam from 2012 suggesting a slow-growing process such as a neurofibroma or schwannoma. Small Bowel X-Ray 11/14/19 00:00 IMPRESSION: Findings are consistent with small bowel obstruction. The administered oral contrast material mostly remains within the gastric fundus/body on the 8 hour post-administration radiographs, indicating delayed transit of material into the small bowel. KUB X-Ray 11/15/19 06:00 IMPRESSION: Contrast has reached the colon. Findings are consistent with either adynamic ileus or partial small bowel obstruction. Assessment & Plan - Diagnosis (1) Abdominal pain Qualifiers: Abdominal location: generalized Qualified Code(s): R10.84 - Generalized abdominal pain Is this a current diagnosis for this admission?: Yes (2) Small bowel obstruction Is this a current diagnosis for this admission?: Yes - Time Anticipated Discharge Disposition: Home, Self Care Anticipated Discharge: Other - Plan Summary Plan Summary: 64-year-old male status post laparotomy for bowel obstruction. The patient is doing reasonably well today. His abdominal pain is controlled with medications. He is urinating without difficulty. His NG tube remains productive. He denies any evidence of flatus. Maintain NG tube until the patient begins passing flatus. Okay for ice chips and popsicles. Ambulate in hallway.
[2019-11-18] MEDS: INSULIN LISPRO 100 UNIT/ML 3 ML VIAL SUBCUT SCH ×4 (00:44→17:40)
[2019-11-18] MEDS: NORMAL SALINE 1000 ML 1,000 ML IV PRN (05:56)
[2019-11-18 06:41] LABS: ANION GAP 10 (5-19); BLOOD UREA NITROGEN 18 mg/dL (7-20); CALCIUM 8.1 mg/dL (8.4-10.2); CARBON DIOXIDE 20 mmol/L (22-30); CHLORIDE 109 mmol/L (98-107); GLUCOSE 169 mg/dL (75-110); POTASSIUM 4.2 mmol/L (3.6-5.0)
[2019-11-18] MEDS ORDERED: NORMAL SALINE 1000 ML 1,000 ML IV PRN (09:10)
--- NOTE | 2019-11-18 09:14 | PDOC PROGRESS REPORT ---
Subjective Progress Note for:: 11/18/19 Subjective:: Patient is currently doing much better Patient is passing the gas positive bowel movement no Nausea no vomiting Reason For Visit: SMALL BOWL OBSTRUCTION Physical Exam Vital Signs: Temp Pulse Resp BP Pulse Ox 97.4 F 107 H 17 136/82 H 94 11/18/19 07:46 11/18/19 07:46 11/18/19 07:46 11/18/19 07:46 11/18/19 07:59 Intake & Output 11/17/19 11/18/19 11/19/19 06:59 06:59 06:59 Intake Total 3963 3900 Output Total 2750 2525 Balance 1213 1375 Weight 120.6 kg 120.8 kg General appearance: PRESENT: no acute distress, well-developed, well-nourished Head exam: PRESENT: atraumatic, normocephalic Eye exam: PRESENT: conjunctiva pink, EOMI, PERRLA. ABSENT: scleral icterus Ear exam: PRESENT: normal external ear exam Mouth exam: PRESENT: moist, tongue midline Neck exam: PRESENT: full ROM. ABSENT: carotid bruit, JVD, lymphadenopathy, thyromegaly Respiratory exam: PRESENT: clear to auscultation imelda Cardiovascular exam: PRESENT: RRR. ABSENT: diastolic murmur, rubs, systolic murmur Vascular exam: PRESENT: normal capillary refill GI/Abdominal exam: PRESENT: soft. ABSENT: distended, guarding, mass, organolmegaly, rebound, tenderness Additonal comments: Surgical dressing is intact Rectal exam: PRESENT: deferred Musculoskeletal exam: PRESENT: ambulatory Neurological exam: PRESENT: alert, awake, oriented to person, oriented to place, oriented to time, oriented to situation, CN II-XII grossly intact. ABSENT: motor sensory deficit Psychiatric exam: PRESENT: appropriate affect, normal mood. ABSENT: homicidal ideation, suicidal ideation Skin exam: PRESENT: dry, intact, warm. ABSENT: cyanosis, rash Results Laboratory Results: 11/17/19 06:00 11/18/19 05:49 11/18/19 05:49 Sodium 139.2 Potassium 4.2 Chloride 109 H Carbon Dioxide 20 L Anion Gap 10 BUN 18 Creatinine 0.86 Est GFR ( Amer) > 60 Glucose 169 H Calcium 8.1 L Impressions: Abdomen/Pelvis CT 11/13/19 21:40 IMPRESSION: 1. Abnormal bowel gas pattern suggesting partial small bowel obstruction. The transition is in the left upper quadrant. The source of the bowel obstruction is unclear and this may represent adhesions. 2. Lobulated soft tissue mass with peripheral calcification seen in the right chest wall associated with the undersurface of a rib. This is only minimally increased in size when compared to an exam from 2013 suggesting a slow-growing process such as a neurofibroma or schwannoma. Small Bowel X-Ray 11/14/19 00:00 IMPRESSION: Findings are consistent with small bowel obstruction. The administered oral contrast material mostly remains within the gastric fundus/body on the 8 hour post-administration radiographs, indicating delayed transit of material into the small bowel. KUB X-Ray 11/15/19 06:00 IMPRESSION: Contrast has reached the colon. Findings are consistent with either adynamic ileus or partial small bowel obstruction. Assessment & Plan - Diagnosis (1) Abdominal pain Qualifiers: Abdominal location: generalized Qualified Code(s): R10.84 - Generalized abdominal pain Is this a current diagnosis for this admission?: Yes Plan: Currently well under control status post surgery (2) Hypertension Qualifiers: Hypertension type: essential hypertension Qualified Code(s): I10 - Essential (primary) hypertension Is this a current diagnosis for this admission?: Yes Plan: Currently all stable (3) Acute renal insufficiency Is this a current diagnosis for this admission?: Yes Plan: Currently all resolved (4) Dehydration Is this a current diagnosis for this admission?: Yes Plan: Currently all resolved (5) Diabetes mellitus Qualifiers: Diabetes mellitus type: type 2 Diabetes mellitus intermediate manager insulin use: with fpc use Diabetes mellitus complication status: with other specified complication Qualified Code(s): E11.69 - Type 2 diabetes mellitus with other specified complication; Z79.4 - intermediate manager (current) use of insulin Is this a current diagnosis for this admission?: Yes Plan: Patient is currently on a sliding scales discussed with the patient going home from surgical standpoint patient's needs to restart slowly with the insulin at night not 100 units because patient's probably not back to her baseline yet titrate the insulin dependence and the patient appetite and blood sugar number 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 the 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 and he will call her to (6) Small bowel obstruction Is this a current diagnosis for this admission?: Yes Plan: Status post surgery (7) Sleep apnea Qualifiers: Sleep apnea type: obstructive Qualified Code(s): G47.33 - Obstructive sleep apnea (adult) (pediatric) Is this a current diagnosis for this admission?: Yes Plan: Continues a CPAP - Time Time Spent with patient: 15-24 minutes Level of Care: IMCU Medications reviewed and adjusted accordingly: Yes Anticipated discharge: Home Anticipated DC Timeframe: Other - Plan Summary Plan Summary: Medically currently all stable discussed with the patient about the diabetic management how to adjust insulin depends in the sugar and patient's appetite currently hold the Ozempic until patient is back to the completely baseline and continues the follow-up with the surgery
[2019-11-18] MEDS: MORPHINE SULFATE 10 MG/ML INJ IV PRN ×2 (09:28→20:10)
--- NOTE | 2019-11-18 09:28 | PDOC PROGRESS REPORT ---
Subjective Progress Note for:: 11/18/19 Subjective:: Feels okay. Not hungry but no nausea. Urinating well. Having bowel movements. Mild abdominal soreness but does not feel distended. Reason For Visit: SMALL BOWL OBSTRUCTION Physical Exam Vital Signs: Temp Pulse Resp BP Pulse Ox 97.4 F 107 H 17 136/82 H 94 11/18/19 07:46 11/18/19 07:46 11/18/19 07:46 11/18/19 07:46 11/18/19 07:59 Intake & Output 11/17/19 11/18/19 11/19/19 06:59 06:59 06:59 Intake Total 3963 3900 Output Total 2750 2525 Balance 1213 1375 Weight 120.6 kg 120.8 kg General appearance: PRESENT: no acute distress, cooperative Respiratory exam: PRESENT: clear to auscultation imelda Cardiovascular exam: PRESENT: RRR GI/Abdominal exam: PRESENT: other - Soft, nondistended, mild diffuse abdominal tenderness with no peritoneal signs. Wound clean dry and intact. Active bowel sounds. Extremities exam: PRESENT: other - No leg swelling no tenderness. Results Laboratory Results: 11/17/19 06:00 11/18/19 05:49 11/18/19 05:49 Sodium 139.2 Potassium 4.2 Chloride 109 H Carbon Dioxide 20 L Anion Gap 10 BUN 18 Creatinine 0.86 Est GFR ( Amer) > 60 Glucose 169 H Calcium 8.1 L Impressions: Abdomen/Pelvis CT 11/13/19 21:40 IMPRESSION: 1. Abnormal bowel gas pattern suggesting partial small bowel obstruction. The transition is in the left upper quadrant. The source of the bowel obstruction is unclear and this may represent adhesions. 2. Lobulated soft tissue mass with peripheral calcification seen in the right chest wall associated with the undersurface of a rib. This is only minimally increased in size when compared to an exam from 2013 suggesting a slow-growing process such as a neurofibroma or schwannoma. Small Bowel X-Ray 11/14/19 00:00 IMPRESSION: Findings are consistent with small bowel obstruction. The administered oral contrast material mostly remains within the gastric fundus/body on the 8 hour post-administration radiographs, indicating delayed transit of material into the small bowel. KUB X-Ray 11/15/19 06:00 IMPRESSION: Contrast has reached the colon. Findings are consistent with either adynamic ileus or partial small bowel obstruction. Assessment & Plan - Diagnosis (1) Small bowel obstruction Plan: Status post lysis of adhesions. Patient bowel function returning. Will advance diet to full liquids since he does not want solids at this time. Encourage ambulation. Probable discharge to home tomorrow if he continues his progress.. - Time Critical Time spent with patient: Less than 15 minutes Anticipated Discharge Disposition: Home, Self Care Anticipated Discharge Timeframe: within 24 hours
[2019-11-18] MEDS: PANTOPRAZOLE SODIUM 40 MG VIAL IV SCH ×2 (09:32→21:19)
--- NOTE | 2019-11-18 10:27 | PDOC PROGRESS REPORT ---
Subjective Progress Note for:: 11/18/19 Subjective:: Patient doing much better. He had a small amount of bowel movement. His abdomem is still distended he still has very minimal abdominal discomfort. He is telling me that he will be allowed solid food today. He has been encouraged to walk around. Reason For Visit: SMALL BOWL OBSTRUCTION Physical Exam Vital Signs: Temp Pulse Resp BP Pulse Ox 97.4 F 107 H 17 136/82 H 94 11/18/19 07:46 11/18/19 07:46 11/18/19 07:46 11/18/19 07:46 11/18/19 07:59 Intake & Output 11/17/19 11/18/19 11/19/19 06:59 06:59 06:59 Intake Total 3963 3900 Output Total 2750 2525 Balance 1213 1375 Weight 120.6 kg 120.8 kg Exam: GENERAL: well-nourished and in no acute distress. Alert and oriented x3 HEAD: Atraumatic, normocephalic. EYES: KEN, sclera anicteric, conjunctiva are normal. ENT: Moist mucous membranes. No oral ulcerations or bleeding gums noted. No obvious ear, nose or throat abnormalities noted. NECK: supple without lymphadenopathy. Trachea is central. No cervical or axillary lymphadenopathy noted. Carotids are 2+, JVD WNL LUNGS: Breath sounds clear bilaterally. No wheezes rales or rhonchi noted. No significant dullness noted on percussion. CHEST: Palpation of the chest wall shows no significant chest wall tenderness. 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 ABDOMEN: Soft, minimal tenderness appreciated, distention noted, hypo-active bowel sounds. No guarding, no rebound. No rigidity noted . No masses appreciated. EXTREMITIES: Pedal pulses are 1-2+, no calf tenderness noted. No clubbing or cyanosis. negative pedal edema noted NEUROLOGICAL: Focused neurological exam showed no significant neurologic deficit. Normal speech, no focal weakness appreciated. PSYCH: Normal mood, normal affect. Judgment and insight within normal limits. SKIN: No significant ecchymosis, skin is noted to be warm. MUSCULOSKELETAL EXAM: No significant acute joint swelling noted. Results Laboratory Results: 11/17/19 06:00 11/18/19 05:49 11/18/19 05:49 Sodium 139.2 Potassium 4.2 Chloride 109 H Carbon Dioxide 20 L Anion Gap 10 BUN 18 Creatinine 0.86 Est GFR ( Amer) > 60 Glucose 169 H Calcium 8.1 L EKG Comments: Shows sinus rhythm, no sustained tachycardia or bradycardia noted Impressions: Abdomen/Pelvis CT 11/13/19 21:40 IMPRESSION: 1. Abnormal bowel gas pattern suggesting partial small bowel obstruction. The transition is in the left upper quadrant. The source of the bowel obstruction is unclear and this may represent adhesions. 2. Lobulated soft tissue mass with peripheral calcification seen in the right chest wall associated with the undersurface of a rib. This is only minimally increased in size when compared to an exam from 2013 suggesting a slow-growing process such as a neurofibroma or schwannoma. Small Bowel X-Ray 11/14/19 00:00 IMPRESSION: Findings are consistent with small bowel obstruction. The administered oral contrast material mostly remains within the gastric fundus/body on the 8 hour post-administration radiographs, indicating delayed transit of material into the small bowel. KUB X-Ray 11/15/19 06:00 IMPRESSION: Contrast has reached the colon. Findings are consistent with ei ther adynamic ileus or partial small bowel obstruction. 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 Continue management plans as outlined by primary care physician and surgeons. Have encouraged patient to wear Pap therapy when taking naps and at night. Patient tells me that he could not wear the CPAP mask because of NG tube but he will certainly try today. Patient other medical problems and surgical problems are being well managed. We will follow patient on an intermittent basis. Call me should any cardiac issues arise. - Time Time with patient: 15-25 minutes
[2019-11-18] MEDS: ONDANSETRON HCL INJ/PF 4 MG/2 ML SDV IV PRN (18:23)
[2019-11-19] MEDS: INSULIN LISPRO 100 UNIT/ML 3 ML VIAL SUBCUT SCH ×4 (00:51→17:50)
[2019-11-19] MEDS: ONDANSETRON HCL INJ/PF 4 MG/2 ML SDV IV PRN ×2 (05:54→12:05)
[2019-11-19 06:17] LABS: HEMATOCRIT 47.1 % (37.9-51.0); HEMOGLOBIN 15.5 g/dL (13.5-17.0); MEAN CORPUSCULAR HEMOGLOBIN 28.4 pg (27.0-33.4); MEAN CORPUSCULAR HGB CONC 32.9 g/dL (32.0-36.0); MEAN CORPUSCULAR VOLUME 86 fl (80-97); PLATELET COUNT 136 10^3/uL (150-450); RED BLOOD COUNT 5.46 10^6/uL (4.35-5.55); RED CELL DISTRIBUTION WIDTH 15.1 % (11.5-14.0); WHITE BLOOD COUNT 19.2 10^3/uL (4.0-10.5)
[2019-11-19 06:29] LABS: ANION GAP 16 (5-19); BLOOD UREA NITROGEN 28 mg/dL (7-20); CALCIUM 7.8 mg/dL (8.4-10.2); CARBON DIOXIDE 14 mmol/L (22-30); CHLORIDE 105 mmol/L (98-107); GLUCOSE 281 mg/dL (75-110); POTASSIUM 4.7 mmol/L (3.6-5.0)
[2019-11-19 06:44] LABS: ABSOLUTE LYMPHOCYTES# (MANUAL) 0.8 10^3/uL (0.5-4.7); ABSOLUTE MONOCYTES # (MANUAL) 1.2 10^3/uL (0.1-1.4); BAND NEUTROPHILS % (MANUAL) 8 % (3-5); BASOPHILS % (MANUAL) 0 % (0-2); EOSINOPHILS % (MANUAL) 0 % (0-6); LYMPHOCYTES % (MANUAL) 2 % (13-45); MONOCYTES % (MANUAL) 6 % (3-13); SEGMENTED NEUTROPHILS % (MAN) 82 % (42-78); TOTAL CELLS COUNTED 100
[2019-11-19 06:45] LABS: ANISOCYTOSIS 1+; PLATELET COMMENT ADEQUATE; TOXIC GRANULATION SLIGHT; TOXIC VACUOLATION PRESENT
[2019-11-19 06:46] LABS: TEAR DROP CELLS SLIGHT
[2019-11-19] MEDS ORDERED: ACETAMINOPHEN 325 MG TABLET PO PRN (08:34)
--- NOTE | 2019-11-19 08:59 | RADIOLOGY REPORT (SQ) ---
EXAM DESCRIPTION: CHEST SINGLE VIEW IMAGES COMPLETED DATE/TIME: 11/19/2019 8:45 am REASON FOR STUDY: increase white blood cell count COMPARISON: 06/26/2012 EXAM PARAMETERS: NUMBER OF VIEWS: One view. TECHNIQUE: Single frontal radiographic view of the chest acquired. RADIATION DOSE: NA LIMITATIONS: None. FINDINGS: LUNGS AND PLEURA: No opacities, masses or pneumothorax. No pleural effusion. MEDIASTINUM AND HILAR STRUCTURES: No masses. Contour normal. HEART AND VASCULAR STRUCTURES: Heart normal in size. Normal vasculature. BONES: No acute findings. HARDWARE: None in the chest. OTHER: No other significant finding. IMPRESSION: NO ACUTE RADIOGRAPHIC FINDING IN THE CHEST. TECHNICAL DOCUMENTATION: JOB ID: [id number] 2010 [employer]- All Rights Reserved Reading location - IP/workstation name: [email or web address]
--- NOTE | 2019-11-19 08:59 | PDOC PROGRESS REPORT ---
Subjective Progress Note for:: 11/19/19 Subjective:: Patient is currently doing fair His pain under control but still having some abdominal discomfort Patient's denied any chest pain no short of breath Is try to use the CPAP machines yesterday but unable to use much was making the more discomfort Patient's white count is elevated patient does not have a no fever Heart rate running 130 range as per patient's his heart rate is always running high and reviewed the record patient is always have a sinus tachycardia seen by Dr. Smith discussed with him he will review Reason For Visit: SMALL BOWL OBSTRUCTION Physical Exam Vital Signs: Temp Pulse Resp BP Pulse Ox 97.4 F 127 H 20 132/80 H 93 11/19/19 07:32 11/19/19 07:32 11/19/19 07:32 11/19/19 07:32 11/19/19 08:18 Intake & Output 11/18/19 11/19/19 11/20/19 06:59 06:59 06:59 Intake Total 3900 2200 Output Total 2525 300 Balance 1375 1900 Weight 120.8 kg 120.8 kg General appearance: PRESENT: no acute distress, well-developed, well-nourished Head exam: PRESENT: atraumatic, normocephalic Eye exam: PRESENT: conjunctiva pink, EOMI, PERRLA. ABSENT: scleral icterus Ear exam: PRESENT: normal external ear exam Mouth exam: PRESENT: moist, tongue midline Neck exam: PRESENT: full ROM. ABSENT: carotid bruit, JVD, lymphadenopathy, thyromegaly Cardiovascular exam: PRESENT: RRR, +S1, +S2, tachycardia. ABSENT: diastolic murmur, rubs, systolic murmur Pulses: PRESENT: normal dorsalis pedis pul, +2 pedal pulses bilateral Vascular exam: PRESENT: normal capillary refill GI/Abdominal exam: PRESENT: normal bowel sounds, soft. ABSENT: distended, guarding, mass, organolmegaly, rebound, tenderness Rectal exam: PRESENT: deferred Neurological exam: PRESENT: alert, awake, oriented to person, oriented to place, oriented to time, oriented to situation, CN II-XII grossly intact. ABSENT: motor sensory deficit Psychiatric exam: PRESENT: appropriate affect, normal mood. ABSENT: homicidal ideation, suicidal ideation Skin exam: PRESENT: dry, intact, warm. ABSENT: cyanosis, rash Results Laboratory Results: 11/19/19 05:13 11/19/19 05:13 11/19/19 11/19/19 05:13 05:13 WBC 19.2 H RBC 5.46 Hgb 15.5 Hct 47.1 MCV 86 MCH 28.4 MCHC 32.9 RDW 15.1 H Plt Count 136 L Seg Neutrophils % Not Reportable Sodium 134.9 L Potassium 4.7 Chloride 105 Carbon Dioxide 14 L Anion Gap 16 BUN 28 H Creatinine 1.07 Est GFR ( Amer) > 60 Glucose 281 H Calcium 7.8 L Impressions: Abdomen/Pelvis CT 11/13/19 21:40 IMPRESSION: 1. Abnormal bowel gas pattern suggesting partial small bowel obstruction. The transition is in the left upper quadrant. The source of the bowel obstruction is unclear and this may represent adhesions. 2. Lobulated soft tissue mass with peripheral calcification seen in the right chest wall associated with the undersurface of a rib. This is only minimally increased in size when compared to an exam from 2013 suggesting a slow-growing process such as a neurofibroma or schwannoma. Small Bowel X-Ray 11/14/19 00:00 IMPRESSION: Findings are consistent with small bowel obstruction. The administered oral contrast material mostly remains within the gastric fundus/body on the 8 hour post-administration radiographs, indicating delayed transit of material into the small bowel. KUB X-Ray 11/15/19 06:00 IMPRESSION: Contrast has reached the colon. Findings are consistent with either adynamic ileus or partial small bowel obstruction. Assessment & Plan - Diagnosis (1) Abdominal pain Qualifiers: Abdominal location: generalized Qualified Code(s): R10.84 - Generalized abdominal pain Is this a current diagnosis for this admission?: Yes Plan: Currently well under control status post surgery (2) Hypertension Qualifiers: Hypertension type: essential hypertension Qualified Code(s): I10 - Essential (primary) hypertension Is this a current diagnosis for this admission?: Yes (3) Acute renal insufficiency Is this a current diagnosis for this admission?: Yes Plan: Currently all resolved (4) Dehydration Is this a current diagnosis for this admission?: Yes Plan: Currently all resolved (5) Diabetes mellitus Qualifiers: Diabetes mellitus type: type 2 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 Diabetes mellitus complication status: with other specified complication Qualified Code(s): E11.69 - Type 2 diabetes mellitus with other specified complication; Z79.4 - superintendent terminal (current) use of insulin Is this a current diagnosis for this admission?: Yes (6) Small bowel obstruction Is this a current diagnosis for this admission?: Yes (7) Sleep apnea Qualifiers: Sleep apnea type: obstructive Qualified Code(s): G47.33 - Obstructive sleep apnea (adult) (pediatric) Is this a current diagnosis for this admission?: Yes (8) Elevated white blood cell count Qualifiers: Leukocytosis type: unspecified Qualified Code(s): D72.829 - Elevated white blood cell count, unspecified Is this a current diagnosis for this admission?: Yes Plan: Discussed with the surgery about antibiotic he will evaluate the patient's with her patients need a CT scan or not will get the chest x-ray urine culture patients does not have any fever we will check the lactic acids to rule out underlying any infectious process may be consider put on the Cipro and Flagyl repeat okay with the surgery (9) Sinus tachycardia Is this a current diagnosis for this admission?: Yes Plan: Discussed with the 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
[2019-11-19 09:23] LABS: ALKALINE PHOSPHATASE 60 U/L (38-126); ASPARTATE AMINO TRANSFERASE 20 U/L (17-59); BILIRUBIN,DIRECT 0.2 mg/dL (0.0-0.4); BILIRUBIN,TOTAL 0.7 mg/dL (0.2-1.3); TOTAL PROTEIN 5.8 g/dL (6.3-8.2)
[2019-11-19] MEDS: MORPHINE SULFATE 10 MG/ML INJ IV PRN ×2 (09:26→17:47)
[2019-11-19] MEDS: PANTOPRAZOLE SODIUM 40 MG VIAL IV SCH ×2 (09:26→22:13)
--- NOTE | 2019-11-19 11:39 | PDOC PROGRESS REPORT ---
Subjective Progress Note for:: 11/19/19 Subjective:: s/p exploratroy laparotomy with lyisis of adhesions Reason For Visit: SMALL BOWL OBSTRUCTION Physical Exam Vital Signs: Temp Pulse Resp BP Pulse Ox 97.4 F 127 H 20 132/80 H 93 11/19/19 07:32 11/19/19 07:32 11/19/19 07:32 11/19/19 07:32 11/19/19 08:18 Intake & Output 11/18/19 11/19/19 11/20/19 06:59 06:59 06:59 Intake Total 3900 2200 Output Total 2525 300 Balance 1375 1900 Weight 120.8 kg 120.8 kg General appearance: PRESENT: no acute distress, mild distress Head exam: PRESENT: normocephalic Eye exam: PRESENT: EOMI Ear exam: PRESENT: normal external ear exam Mouth exam: PRESENT: moist Teeth exam: PRESENT: poor dentation Neck exam: PRESENT: carotid bruit Respiratory exam: PRESENT: accessory muscle use, crackles, retraction, tachypnea Cardiovascular exam: PRESENT: RRR, tachycardia GI/Abdominal exam: PRESENT: other - abd distended,tympanitic, sl tender wound ok Rectal exam: PRESENT: deferred Extremities exam: PRESENT: full ROM Musculoskeletal exam: PRESENT: full ROM Neurological exam: PRESENT: alert, awake, oriented to person Psychiatric exam: PRESENT: appropriate affect Skin exam: PRESENT: dry - markely obese and distended abd, tymanitic tachypenic respiratory due to abd distendsion Results Laboratory Results: 11/19/19 05:13 11/19/19 05:13 11/19/19 11/19/19 11/19/19 05:13 05:13 05:13 WBC 19.2 H RBC 5.46 Hgb 15.5 Hct 47.1 MCV 86 MCH 28.4 MCHC 32.9 RDW 15.1 H Plt Count 136 L Seg Neutrophils % Not Reportable Sodium 134.9 L Potassium 4.7 Chloride 105 Carbon Dioxide 14 L Anion Gap 16 BUN 28 H Creatinine 1.07 Est GFR ( Amer) > 60 Glucose 281 H Lactic Acid Calcium 7.8 L Total Bilirubin 0.7 AST 20 Alkaline Phosphatase 60 Total Protein 5.8 L Albumin 3.0 L 11/19/19 09:46 WBC RBC Hgb Hct MCV MCH MCHC RDW Plt Count Seg Neutrophils % Sodium Potassium Chloride Carbon Dioxide Anion Gap BUN Creatinine Est GFR ( Amer) Glucose Lactic Acid 0.8 Calcium Total Bilirubin AST Alkaline Phosphatase Total Protein Albumin Impressions: Abdomen/Pelvis CT 11/13/19 21:40 IMPRESSION: 1. Abnormal bowel gas pattern suggesting partial small bowel obstruction. The transition is in the left upper quadrant. The source of the bowel obstruction is unclear and this may represent adhesions. 2. Lobulated soft tissue mass with peripheral calcification seen in the right chest wall associated with the undersurface of a rib. This is only minimally increased in size when compared to an exam from 2013 suggesting a slow-growing process such as a neurofibroma or schwannoma. Small Bowel X-Ray 11/14/19 00:00 IMPRESSION: Findings are consistent with small bowel obstruction. The administered oral contrast material mostly remains within the gastric fundus/body on the 8 hour post-administration radiographs, indicating delayed transit of material into the small bowel. KUB X-Ray 11/15/19 06:00 IMPRESSION: Contrast has reached the colon. Findings are consistent with either adynamic ileus or partial small bowel obstruction. Chest X-Ray 11/19/19 00:00 IMPRESSION: NO ACUTE RADIOGRAPHIC FINDING IN THE CHEST. Assessment & Plan - Time Time Spent: 50 to 70 Minutes Critical Time spent with patient: 25-34 minutes Medications reviewed and adjusted accordingly: No Anticipated Discharge Disposition: Home, Self Care Anticipated Discharge Timeframe: within 72 hours - Plan Summary Plan Summary: pt iwth post op ileus or recurrent sbo will place ng tube today due to abdominal distension and Tachypnea will repeat labs in am\] if wbc remains elevated after ng decompression will consider ct abd. ]
--- NOTE | 2019-11-19 12:00 | RADIOLOGY REPORT (SQ) ---
EXAM DESCRIPTION: KUB/ABDOMEN (SINGLE VIEW) IMAGES COMPLETED DATE/TIME: 11/19/2019 11:51 am REASON FOR STUDY: ng tube insertion COMPARISON: 11/15/2019 NUMBER OF VIEWS: One view. TECHNIQUE: Supine radiographic image of the abdomen acquired. LIMITATIONS: None. FINDINGS: Limited view the abdomen is obtained for NG tube placement. Tip is coiled in the left upp er quadrant most likely within stomach. IMPRESSION: NG tube has been placed as described. TECHNICAL DOCUMENTATION: JOB ID: [id number] 2010 [employer]- All Rights Reserved Reading location - IP/workstation name: [email or web address]
--- NOTE | 2019-11-19 13:06 | PDOC PROGRESS REPORT ---
Subjective Progress Note for:: 11/19/19 Subjective:: Patient doing much better. He had a small amount of bowel movement. His abdomem is still distended he still has very minimal abdominal discomfort. He is telling me that he will be allowed solid food today. He has been encouraged to walk around. 11/19/2019 I was asked to evaluate patient because of patient being somewhat tachycardic. Patient was noted to have increased abdominal distention therefore had the NG tube placed back. Chemistry panel shows low bicarbonate. Patient on questioning denying any chest arm or neck discomfort. He is denying any shortness of breath. Reason For Visit: SMALL BOWL OBSTRUCTION Physical Exam Vital Signs: Temp Pulse Resp BP Pulse Ox 98.2 F 116 H 16 131/76 H 92 11/19/19 11:13 11/19/19 11:13 11/19/19 11:13 11/19/19 11:13 11/19/19 11:13 Intake & Output 11/18/19 11/19/19 11/20/19 06:59 06:59 06:59 Intake Total 3900 2200 Output Total 2525 300 Balance 1375 1900 Weight 120.8 kg 120.8 kg General appearance: PRESENT: no acute distress, well-developed, well-nourished Exam: I Head exam: PRESENT: atraumatic, normocephalic Eye exam: PRESENT: conjunctiva pink, EOMI, PERRLA. ABSENT: scleral icterus Ear exam: PRESENT: normal external ear exam Mouth exam: PRESENT: moist, tongue midline Neck exam: ABSENT: carotid bruit, JVD, lymphadenopathy, thyromegaly Respiratory exam: PRESENT: clear to auscultation imelda. ABSENT: rales, rhonchi, wheezes Cardiovascular exam: PRESENT: RRR. ABSENT: diastolic murmur, rubs, systolic murmur Pulses: PRESENT: normal dorsalis pedis pul Vascular exam: PRESENT: normal capillary refill GI/Abdominal exam: PRESENT: diminished bowel sounds, distended, hypoactive bowel sounds, soft. ABSENT: guarding, mass, organolmegaly, rebound, tenderness Rectal exam: PRESENT: deferred Extremities exam: PRESENT: full ROM. ABSENT: calf tenderness, clubbing, pedal edema Neurological exam: PRESENT: alert, awake, oriented to person, oriented to place, oriented to time, oriented to situation, CN II-XII grossly intact. ABSENT: motor sensory deficit Psychiatric exam: PRESENT: appropriate affect, normal mood. ABSENT: homicidal ideation, suicidal ideation Skin exam: PRESENT: dry, intact, warm. ABSENT: cyanosis, rash Results Laboratory Results: 11/19/19 05:13 11/19/19 05:13 11/19/19 11/19/19 11/19/19 05:13 05:13 05:13 WBC 19.2 H RBC 5.46 Hgb 15.5 Hct 47.1 MCV 86 MCH 28.4 MCHC 32.9 RDW 15.1 H Plt Count 136 L Seg Neutrophils % Not Reportable Sodium 134.9 L Potassium 4.7 Chloride 105 Carbon Dioxide 14 L Anion Gap 16 BUN 28 H Creatinine 1.07 Est GFR ( Amer) > 60 Glucose 281 H Lactic Acid Calcium 7.8 L Total Bilirubin 0.7 AST 20 Alkaline Phosphatase 60 Total Protein 5.8 L Albumin 3.0 L 11/19/19 09:46 WBC RBC Hgb Hct MCV MCH MCHC RDW Plt Count Seg Neutrophils % Sodium Potassium Chloride Carbon Dioxide Anion Gap BUN Creatinine Est GFR ( Amer) Glucose Lactic Acid 0.8 Calcium Total Bilirubin AST Alkaline Phosphatase Total Protein Albumin EKG Comments: Shows sinus rhythm, borderline abnormal Q waves inferiorly. Impressions: Abdomen/Pelvis CT 11/13/19 21:40 IMPRESSION: 1. Abnormal bowel gas pattern suggesting partial small bowel obstruction. The transition is in the left upper quadrant. The source of the bowel obstruction is unclear and this may represent adhesions. 2. Lobulated soft tissue mass with peripheral calcification seen in the right chest wall associated with the undersurface of a rib. This is only minimally increased in size when compared to an exam from 2013 suggesting a slow-growing process such as a neurofibroma or schwannoma. Small Bowel X-Ray 11/14/19 00:00 IMPRESSION: Findings are consistent with small bowel obstruction. The administered oral contrast material mostly remains within the gastric fundus/body on the 8 hour post-administration radiographs, indicating delayed transit of material into the small bowel. Chest X-Ray 11/19/19 00:00 IMPRESSION: NO ACUTE RADIOGRAPHIC FINDING IN THE CHEST. KUB X-Ray 11/19/19 11:33 IMPRESSION: NG tube has been placed as described. 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 Diabetes mellitus complication status: with other specified complication Qualified Code(s): E11.69 - Type 2 diabetes mellitus with other specified complication; Z79.4 - exterminator helper (current) use of insulin Is this a current diagnosis for this admission?: Yes (2) Hypertension Qualifiers: Hypertension type: essential hypertension Qualified Code(s): I10 - Essential (primary) hypertension Is this a current diagnosis for this admission?: Yes (3) Sleep apnea Qualifiers: Sleep apnea type: obstructive Qualified Code(s): G47.33 - Obstructive sleep apnea (adult) (pediatric) Is this a current diagnosis for this admission?: Yes (4) Small bowel obstruction Is this a current diagnosis for this admission?: Yes - Notes Notes: Start patient on IV beta-blockers low-dose. Adjust as needed. Continue IV fluid therapy. Agree with ABG to evaluate low bicarbonate. Agree with plans to obtain CT abdomen if distention persist. Continue management plans as denoted by surgeons and primary clinician. - Time Time with patient: 15-25 minutes
[2019-11-19] MEDS ORDERED: METOPROLOL TARTRATE PF/INJ 5 MG/5 ML SDV IV PRN (13:16)
[2019-11-19] MEDS ORDERED: NORMAL SALINE 1000 ML 1,000 ML IV PRN (13:47)
[2019-11-19] MEDS: HEPARIN SOD (PORCINE) 5,000 UNIT/ML 1 ML VIAL SUBCUT SCH ×2 (15:10→22:13)
[2019-11-19 15:12] LABS: ARTERIAL BLOOD BASE EXCESS -7.9 mmol/L; ARTERIAL BLOOD H2CO3 0.92 mmol/L (1.05-1.35); ARTERIAL BLOOD HCO3 16.3 mmol/L (20-24); ARTERIAL BLOOD O2 SATURATION 95.4 % (94-98); ARTERIAL BLOOD PCO2 30.6 mmHg (35-45); ARTERIAL BLOOD PH 7.35 (7.35-7.45); ARTERIAL BLOOD PO2 80.2 mmHg (80-100); ARTERIAL BLOOD TOTAL CO2 17.3 mmol/L (23-27)
[2019-11-19 15:15] LABS: APPEARANCE,URINE CLEAR; BILIRUBIN,URINE NEGATIVE (NEGATIVE); COLOR,URINE YELLOW; GLUCOSE, URINE >=500 mg/dL (NEGATIVE); KETONES,URINE 80 mg/dL (NEGATIVE); LEUKOCYTE ESTERASE,URINE NEGATIVE (NEGATIVE); NITRITE,URINE NEGATIVE (NEGATIVE); PROTEIN,URINE 30 mg/dL (NEGATIVE); URINE SPECIFIC GRAVITY 1.027
[2019-11-19 15:16] LABS: ARTERIAL BLOOD FIO2 2L
--- NOTE | 2019-11-19 17:52 | PDOC CONSULTATION ---
Consultation Consult Date: 11/19/19 Attending physician:: YASH PATEL Provider Consulted: CASPER SPENCER Consult reason:: Obstructive sleep apnea History of Present Illness Admission Date/PCP: 11/14/19 10:37 YASH PATEL MD History of Present Illness: CHUCKY VASQUEZ is a 64 year old male here to the hospital due to abdominal pain delirium small bowel obstruction subsequently went to operating room see operative note. Patient denies having history of shortness of breath dyspnea on exertion cough hemoptysis PPD says negative dates unknown no history of chronic lung disease as a child or adolescent he does admit to being exposed to passive smoke as a child but not as as well as an adult. He himself denies ever smoking. He is 20-year of the [employer] where he served in the [employer]. He has 2 dogs no recent travel no anginal-like chest pain sleeps on 2 pillows no PND no nocturnal cough and occasional edema. He carries a diagnosis of obstructive sleep apnea and wears a CPAP nightly. However the last night he attempted with CPAP and was not able to tolerate it due to increasing abdominal distention. Past Medical History Cardiac Medical History: Reports: Hyperlipidema, Hypertension Pulmonary Medical History: Reports: Sleep Apnea Endocrine Medical History: Reports: Diabetes Mellitus Type 2 Renal/ Medical History: Reports: None Malignancy Medical History: Reports: None GI Medical History: Reports: Gastroesophageal Reflux Disease Denies: Cirrhosis, Crohn's Disease, Ulcerative Colitis Musculoskeltal Medical History: Denies: Gout Skin Medical History: Denies: Eczema Psychiatric Medical History: Denies: Depression Traumatic Medical History: Denies: Traumatic Brain Injury Infectious Medical History: Denies: HIV Past Surgical History Past Surgical History: Reports: Cholecystectomy, Orthopedic Surgery, Tonsillectomy - and addenoids Social History Information Source: Patient, Relative, [facility] Records Lives with: Family Smoking Status: Never Smoker Passive smoke exposure as: Both Frequency of Alcohol Use: None Hx Recreational Drug Use: No Drugs: None Hx Prescription Drug Abuse: No Do you have pets?: Yes Have you had any respiratory illnesses as a child?: No Have you been exposed to any sick contacts recently?: No Have you had any recent respiratory illnesses?: No Have you travelled outside of [place] in the past 12 months?: No - Advance Directive Resuscitation Status: Full Code Family History Family History: CVA, DM, Hypertension, Malignancy Parental Family History Reviewed: Yes Children Family History Reviewed: Yes Sibling(s) Family History Reviewed.: Yes Medication/Allergy Home Medications: Glimepiride [Amaryl 4 Mg Tablet] 8 mg PO QHS 06/24/12 Empagliflozin/Metformin HCl [Synjardy Xr 12.5-1,000 mg Tab] 1 tab PO BID 11/14/19 Insulin Degludec [Tresiba Flextouch U-200] 100 units SUBCUT QHS 11/14/19 Lisinopril/Hydrochlorothiazide [Lisinopril-Hctz 10-12.5 mg Tab] 1 tab PO DAILY 11/14/19 Pioglitazone HCl [Actos 30 mg Tablet] 30 mg PO DAILY 11/14/19 Semaglutide [Ozempic] 0.25 mg SUBCUT WE@1000 PRN 11/14/19 Simvastatin [Zocor 10 mg Tablet] 10 mg PO QHS 11/14/19 Allergies/Adverse Reactions: penicillin G [Penicillin G] Allergy (Verified 06/24/12 20:27) Review of Systems Gastrointestinal: PRESENT: abdominal pain, bloating, nausea Genitourinary: ABSENT: dysuria Musculoskeletal: ABSENT: joint swelling Integumentary: ABSENT: rash Psychiatric: PRESENT: depression. ABSENT: hallucinations, homidical ideation, suicidal ideation Endocrine: ABSENT: cold intolerance, polyuria Hematologic/Lymphatic: ABSENT: easy bleeding, easy bruising Physical Exam Vital Signs: Temp Pulse Resp BP Pulse Ox 97.3 F 113 H 20 130/83 H 95 11/19/19 15:23 11/19/19 15:23 11/19/19 15:23 11/19/19 15:23 11/19/19 15:23 Intake & Output 11/18/19 11/19/19 11/20/19 06:59 06:59 06:59 Intake Total 3900 2200 Output Total 2525 300 Balance 1375 1900 Weight 120.8 kg 120.8 kg General appearance: PRESENT: cooperative, disheveled, mild distress, morbidly obese, well-developed, well-nourished Head exam: PRESENT: atraumatic, normocephalic Eye exam: PRESENT: conjunctiva pale, EOMI. ABSENT: nystagmus, periorbital swelling, scleral icterus Mouth exam: PRESENT: dry mucosa, neck supple, tongue midline Neck exam: ABSENT: carotid bruit, full ROM, JVD, lymphadenopathy, meningismus, tenderness, thyromegaly, tracheal deviation, tracheostomy, other Respiratory exam: PRESENT: rhonchi, symmetrical, unlabored. ABSENT: crackles, decreased breath sounds, rales, retraction, stridor, tachypnea, wheezes Cardiovascular exam: PRESENT: RRR, +S1, +S2, tachycardia. ABSENT: systolic murmur Pulses: PRESENT: normal radial pulses GI/Abdominal exam: PRESENT: distended, hernia - umbilical, hypoactive bowel sounds, soft. ABSENT: diminished bowel sounds, hyperactive bowel sounds, normal bowel sounds, rebound, tenderness Extremities exam: ABSENT: calf tenderness, clubbing, joint swelling Musculoskeletal exam: ABSENT: deformity, dislocation Neurological exam: PRESENT: alert, awake Psychiatric exam: PRESENT: appropriate affect Skin exam: PRESENT: dry, warm Results Laboratory Results: 11/19/19 05:13 11/19/19 05:13 11/19/19 11/19/19 11/19/19 05:13 05:13 05:13 WBC 19.2 H RBC 5.46 Hgb 15.5 Hct 47.1 MCV 86 MCH 28.4 MCHC 32.9 RDW 15.1 H Plt Count 136 L Seg Neutrophils % Not Reportable Carbonic Acid HCO3/H2CO3 Ratio ABG pH ABG pCO2 ABG pO2 ABG HCO3 ABG O2 Saturation ABG Base Excess FiO2 Sodium 134.9 L Potassium 4.7 Chloride 105 Carbon Dioxide 14 L Anion Gap 16 BUN 28 H Creatinine 1.07 Est GFR ( Amer) > 60 Glucose 281 H Lactic Acid Calcium 7.8 L Total Bilirubin 0.7 AST 20 Alkaline Phosphatase 60 Total Protein 5.8 L Albumin 3.0 L Urine Color Urine Appearance Urine pH Ur Specific [place] Urine Protein Urine Glucose (UA) Urine Ketones Urine Blood Urine Nitrite Ur Leukocyte Esterase Urine WBC (Auto) Urine RBC (Auto) 11/19/19 11/19/19 11/19/19 09:46 14:45 14:45 WBC RBC Hgb Hct MCV MCH MCHC RDW Plt Count Seg Neutrophils % Carbonic Acid 0.92 L HCO3/H2CO3 Ratio 17:1 ABG pH 7.35 ABG pCO2 30.6 L ABG pO2 80.2 ABG HCO3 16.3 L ABG O2 Saturation 95.4 ABG Base Excess -7.9 FiO2 2L Sodium Potassium Chloride Carbon Dioxide Anion Gap BUN Creatinine Est GFR ( Amer) Glucose Lactic Acid 0.8 Calcium Total Bilirubin AST Alkaline Phosphatase Total Protein Albumin Urine Color YELLOW Urine Appearance CLEAR Urine pH 5.0 Ur Specific [place] 1.027 Urine Protein 30 H Urine Glucose (UA) >=500 H Urine Ketones 80 H Urine Blood NEGATIVE Urine Nitrite NEGATIVE Ur Leukocyte Esterase NEGATIVE Urine WBC (Auto) 1 Urine RBC (Auto) 1 Impressions: Abdomen/Pelvis CT 11/13/19 21:40 IMPRESSION: 1. Abnormal bowel gas pattern suggesting partial small bowel obstruction. The transition is in the left upper quadrant. The source of the bowel obstruction is unclear and this may represent adhesions. 2. Lobulated soft tissue mass with peripheral calcification seen in the right chest wall associated with the undersurface of a rib. This is only minimally increased in size when compared to an exam from 2013 suggesting a slow-growing process such as a neurofibroma or schwannoma. Small Bowel X-Ray 11/14/19 00:00 IMPRESSION: Findings are consistent with small bowel obstruction. The administered oral contrast material mostly remains within the gastric fundus/body on the 8 hour post-administration radiographs, indicating delayed transit of material into the small bowel. Chest X-Ray 11/19/19 00:00 IMPRESSION: NO ACUTE RADIOGRAPHIC FINDING IN THE CHEST. KUB X-Ray 11/19/19 11:33 IMPRESSION: NG tube has been placed as described. Assessment & Plan - Diagnosis (1) SIRS due to infectious process without acute organ dysfunction Is this a current diagnosis for this admission?: Yes Plan: Metabolic acidosis; leukocytosis; tachycardia (2) Sleep apnea Qualifiers: Sleep apnea type: obstructive Qualified Code(s): G47.33 - Obstructive sleep apnea (adult) (pediatric) Is this a current diagnosis for this admission?: Yes Plan: Suggest withholding CPAP until abdominal distention has resolved (3) Small bowel obstruction Is this a current diagnosis for this admission?: Yes Plan: As per surgery (4) Diabetes mellitus Qualifiers: Diabetes mellitus type: type 2 Diabetes mellitus intermediate insulin use: with intermediate use Diabetes mellitus complication status: with other specified complication Qualified Code(s): E11.69 - Type 2 diabetes mellitus with other specified complication; Z79.4 - veneer redrier (current) use of insulin Is this a current diagnosis for this admission?: Yes Plan: Glycosuria plus ketonuria and sle-[id number]-[id number] diabetes mellitus able to take oral hypoglycemics. Consider using sliding scale insulin. - Time Time Spent with patient: 50 min Time Spent: 30 to 50 Minutes
--- NOTE | 2019-11-19 23:11 | EKG REPORT ---
SEVERITY:- BORDERLINE ECG - SINUS TACHYCARDIA BORDERLINE LEFT AXIS DEVIATION BORDERLINE T ABNORMALITIES, ANTERIOR LEADS : Confirmed by: Kaylen Kam MD 19-Nov-2019 23:10:41
[2019-11-20] MEDS: MORPHINE SULFATE 10 MG/ML INJ IV PRN ×2 (00:04→18:51)
[2019-11-20] MEDS: INSULIN LISPRO 100 UNIT/ML 3 ML VIAL SUBCUT SCH ×4 (00:04→18:30)
[2019-11-20 05:48] LABS: ABSOLUTE EOSINOPHILS # (AUTO) 0.3 10^3/uL (0.0-0.6); ABSOLUTE LYMPHOCYTES (AUTO) 1.1 10^3/uL (0.5-4.7); ABSOLUTE MONOCYTES (AUTO) 1.6 10^3/uL (0.1-1.4); BASOPHILS % (AUTO) 0.4 % (0-2); EOSINOPHILS % (AUTO) 2.6 % (0-6); HEMATOCRIT 45.8 % (37.9-51.0); HEMOGLOBIN 15.1 g/dL (13.5-17.0); LYMPHOCYTES % (AUTO) 8.8 % (13-45); MEAN CORPUSCULAR HEMOGLOBIN 28.3 pg (27.0-33.4); MEAN CORPUSCULAR HGB CONC 33.1 g/dL (32.0-36.0); MEAN CORPUSCULAR VOLUME 86 fl (80-97); MONOCYTES % (AUTO) 11.9 % (3-13); PLATELET COUNT 110 10^3/uL (150-450); RED BLOOD COUNT 5.34 10^6/uL (4.35-5.55); RED CELL DISTRIBUTION WIDTH 15.3 % (11.5-14.0); SEGMENTED NEUTROPHILS % (AUTO) 76.3 % (42-78); TOTAL CELLS COUNTED % (AUTO) 100 %
[2019-11-20 06:14] LABS: ANION GAP 12 (5-19); BLOOD UREA NITROGEN 24 mg/dL (7-20); CALCIUM 7.8 mg/dL (8.4-10.2); CARBON DIOXIDE 18 mmol/L (22-30); CHLORIDE 108 mmol/L (98-107); GLUCOSE 236 mg/dL (75-110); POTASSIUM 4.3 mmol/L (3.6-5.0)
[2019-11-20] MEDS: HEPARIN SOD (PORCINE) 5,000 UNIT/ML 1 ML VIAL SUBCUT SCH ×2 (06:26→16:44)
[2019-11-20] MEDS ORDERED: NORMAL SALINE 1000 ML 1,000 ML IV PRN (08:08)
[2019-11-20] MEDS: PANTOPRAZOLE SODIUM 40 MG VIAL IV SCH (09:24)
--- NOTE | 2019-11-20 10:02 | PDOC PROGRESS REPORT ---
Subjective Progress Note for:: 11/20/19 Subjective:: Feels better today. But not passing gas and not having bowel movement. Patient notes that he did pass some gas yesterday. He states that he does not feel bloated. Denies any abdominal pain. Patient appears very comfortable in no apparent distress. Reason For Visit: SMALL BOWL OBSTRUCTION Physical Exam Vital Signs: Temp Pulse Resp BP Pulse Ox 97.5 F 104 H 20 141/82 H 97 11/20/19 07:34 11/20/19 07:34 11/20/19 07:34 11/20/19 07:34 11/20/19 07:34 Intake & Output 11/19/19 11/20/19 11/21/19 06:59 06:59 06:59 Intake Total 2200 0 Output Total 300 1905 Balance 1900 -1905 Weight 120.8 kg 118.4 kg General appearance: PRESENT: no acute distress, cooperative Respiratory exam: PRESENT: clear to auscultation imelda Cardiovascular exam: PRESENT: RRR GI/Abdominal exam: PRESENT: other - Soft, nondistended, nontender to palpation. Wound clean dry and intact. Diminished bowel sounds. Results Laboratory Results: 11/20/19 04:55 11/20/19 04:55 11/19/19 11/19/19 11/19/19 09:46 14:45 14:45 WBC RBC Hgb Hct MCV MCH MCHC RDW Plt Count Seg Neutrophils % Carbonic Acid 0.92 L HCO3/H2CO3 Ratio 17:1 ABG pH 7.35 ABG pCO2 30.6 L ABG pO2 80.2 ABG HCO3 16.3 L ABG O2 Saturation 95.4 ABG Base Excess -7.9 FiO2 2L Sodium Potassium Chloride Carbon Dioxide Anion Gap BUN Creatinine Est GFR ( Amer) Glucose Lactic Acid 0.8 Calcium Urine Color YELLOW Urine Appearance CLEAR Urine pH 5.0 Ur Specific [place] 1.027 Urine Protein 30 H Urine Glucose (UA) >=500 H Urine Ketones 80 H Urine Blood NEGATIVE Urine Nitrite NEGATIVE Ur Leukocyte Esterase NEGATIVE Urine WBC (Auto) 1 Urine RBC (Auto) 1 11/20/19 11/20/19 04:55 04:55 WBC 13.0 H RBC 5.34 Hgb 15.1 Hct 45.8 MCV 86 MCH 28.3 MCHC 33.1 RDW 15.3 H Plt Count 110 L Seg Neutrophils % 76.3 Carbonic Acid HCO3/H2CO3 Ratio ABG pH ABG pCO2 ABG pO2 ABG HCO3 ABG O2 Saturation ABG Base Excess FiO2 Sodium 137.6 Potassium 4.3 Chloride 108 H Carbon Dioxide 18 L Anion Gap 12 BUN 24 H Creatinine 0.96 Est GFR ( Amer) > 60 Glucose 236 H Lactic Acid Calcium 7.8 L Urine Color Urine Appearance Urine pH Ur Specific [place] Urine Protein Urine Glucose (UA) Urine Ketones Urine Blood Urine Nitrite Ur Leukocyte Esterase Urine WBC (Auto) Urine RBC (Auto) Impressions: Abdomen/Pelvis CT 11/13/19 21:40 IMPRESSION: 1. Abnormal bowel gas pattern suggesting partial small bowel obstruction. The transition is in the left upper quadrant. The source of the bowel obstruction is unclear and this may represent adhesions. 2. Lobulated soft tissue mass with peripheral calcification seen in the right chest wall associated with the undersurface of a rib. This is only minimally increased in size when compared to an exam from 2012 suggesting a slow-growing process such as a neurofibroma or schwannoma. Small Bowel X-Ray 11/14/19 00:00 IMPRESSION: Findings are consistent with small bowel obstruction. The administered oral contrast material mostly remains within the gastric fundus/body on the 8 hour post-administration radiographs, indicating delayed transit of material into the small bowel. Chest X-Ray 11/19/19 00:00 IMPRESSION: NO ACUTE RADIOGRAPHIC FINDING IN THE CHEST. KUB X-Ray 11/19/19 11:33 IMPRESSION: NG tube has been placed as described. Assessment & Plan - Diagnosis (1) Small bowel obstruction Is this a current diagnosis for this admission?: Yes Plan: Status post lysis of adhesions. Now with evidence of postoperative ileus. His white blood cell count has markedly improved and his abdomen is very soft and nontender with no abdominal pain. Unlikely patient has a significant intra- abdominal process currently other than an ileus. Will get the patient out of bed ambulating. Will try a Dulcolax suppository x1. If patient continues to improve we will likely pull his NG tube out and allow him to eat tomorrow. - Time Anticipated Discharge Disposition: Home, Self Care Anticipated Discharge Timeframe: within 72 hours
[2019-11-20] MEDS ORDERED: NORMAL SALINE 1000 ML 1,000 ML IV ONE (10:30)
[2019-11-20] MEDS ORDERED: BISACODYL 10 MG SUPP.RECT PR ONE (11:00)
--- NOTE | 2019-11-20 14:53 | PDOC PROGRESS REPORT ---
Subjective Progress Note for:: 11/20/19 Subjective:: Patient seen by the bedside, he presented with small bowel obstruction status post laparotomy, lysis of adhesions, he has UTI today, started on Cipro. He also had flatus today Reason For Visit: SMALL BOWL OBSTRUCTION Physical Exam Vital Signs: Temp Pulse Resp BP Pulse Ox 98.6 F 104 H 20 143/84 H 98 11/20/19 12:33 11/20/19 12:33 11/20/19 12:33 11/20/19 12:33 11/20/19 12:33 Intake & Output 11/19/19 11/20/19 11/21/19 06:59 06:59 06:59 Intake Total 2200 0 1000 Output Total 300 1905 Balance 1900 -1905 1000 Weight 120.8 kg 118.4 kg General appearance: PRESENT: no acute distress Eye exam: PRESENT: PERRLA Respiratory exam: PRESENT: clear to auscultation imelda Cardiovascular exam: PRESENT: +S1, +S2 GI/Abdominal exam: PRESENT: soft Results Laboratory Results: 11/20/19 04:55 11/20/19 04:55 11/19/19 11/19/19 11/20/19 14:45 14:45 04:55 WBC 13.0 H RBC 5.34 Hgb 15.1 Hct 45.8 MCV 86 MCH 28.3 MCHC 33.1 RDW 15.3 H Plt Count 110 L Seg Neutrophils % 76.3 Carbonic Acid 0.92 L HCO3/H2CO3 Ratio 17:1 ABG pH 7.35 ABG pCO2 30.6 L ABG pO2 80.2 ABG HCO3 16.3 L ABG O2 Saturation 95.4 ABG Base Excess -7.9 FiO2 2L Sodium Potassium Chloride Carbon Dioxide Anion Gap BUN Creatinine Est GFR ( Amer) Glucose Calcium Urine Color YELLOW Urine Appearance CLEAR Urine pH 5.0 Ur Specific [place] 1.027 Urine Protein 30 H Urine Glucose (UA) >=500 H Urine Ketones 80 H Urine Blood NEGATIVE Urine Nitrite NEGATIVE Ur Leukocyte Esterase NEGATIVE Urine WBC (Auto) 1 Urine RBC (Auto) 1 11/20/19 04:55 WBC RBC Hgb Hct MCV MCH MCHC RDW Plt Count Seg Neutrophils % Carbonic Acid HCO3/H2CO3 Ratio ABG pH ABG pCO2 ABG pO2 ABG HCO3 ABG O2 Saturation ABG Base Excess FiO2 Sodium 137.6 Potassium 4.3 Chloride 108 H Carbon Dioxide 18 L Anion Gap 12 BUN 24 H Creatinine 0.96 Est GFR ( Amer) > 60 Glucose 236 H Calcium 7.8 L Urine Color Urine Appearance Urine pH Ur Specific [place] Urine Protein Urine Glucose (UA) Urine Ketones Urine Blood Urine Nitrite Ur Leukocyte Esterase Urine WBC (Auto) Urine RBC (Auto) Impressions: Abdomen/Pelvis CT 11/13/19 21:40 IMPRESSION: 1. Abnormal bowel gas pattern suggesting partial small bowel obstruction. The transition is in the left upper quadrant. The source of the bowel obstruction is unclear and this may represent adhesions. 2. Lobulated soft tissue mass with peripheral calcification seen in the right chest wall associated with the undersurface of a rib. This is only minimally increased in size when compared to an exam from 2013 suggesting a slow-growing process such as a neurofibroma or schwannoma. Small Bowel X-Ray 11/14/19 00:00 IMPRESSION: Findings are consistent with small bowel obstruction. The administered oral contrast material mostly remains within the gastric fundus/body on the 8 hour post-administration radiographs, indicating delayed transit of material into the small bowel. Chest X-Ray 11/19/19 00:00 IMPRESSION: NO ACUTE RADIOGRAPHIC FINDING IN THE CHEST. KUB X-Ray 11/19/19 11:33 IMPRESSION: NG tube has been placed as described. Assessment & Plan - Diagnosis (1) Small bowel obstruction Is this a current diagnosis for this admission?: Yes (2) Dehydration Is this a current diagnosis for this admission?: Yes - Time Time Spent with patient: 15-24 minutes Level of Care: MEDICAL Medications reviewed and adjusted accordingly: Yes Anticipated discharge: Home, Other Anticipated DC Timeframe: Other - Plan Summary Plan Summary: Start ciprofloxacin for UTI,Continue other treatment
[2019-11-20] MEDS: CIPROFLOXACIN 400 MG/D5W RTU 400 MG/200 ML RTUPB IV SCH (16:53)
--- NOTE | 2019-11-20 21:16 | PDOC PROGRESS REPORT ---
Subjective Progress Note for:: 11/20/19 Subjective:: Feels okay. No nausea or vomiting. According to nursing staff he has had couple of bowel movements today. Has been passing gas. Had NG tube clamped most of this afternoon. Reason For Visit: SMALL BOWL OBSTRUCTION Physical Exam Vital Signs: Temp Pulse Resp BP Pulse Ox 98.7 F 101 H 18 149/80 H 99 11/20/19 15:52 11/20/19 15:52 11/20/19 15:52 11/20/19 15:52 11/20/19 15:52 Intake & Output 11/19/19 11/20/19 11/21/19 06:59 06:59 06:59 Intake Total 2200 0 2200 Output Total 300 1905 Balance 1900 -1905 2200 Weight 120.8 kg 118.4 kg General appearance: PRESENT: no acute distress, cooperative GI/Abdominal exam: PRESENT: other - Soft, nondistended, nontender to palpation. NG tube placed back on suction and only minimal output about 10 cc. Results Laboratory Results: 11/20/19 04:55 11/20/19 04:55 11/20/19 11/20/19 04:55 04:55 WBC 13.0 H RBC 5.34 Hgb 15.1 Hct 45.8 MCV 86 MCH 28.3 MCHC 33.1 RDW 15.3 H Plt Count 110 L Seg Neutrophils % 76.3 Sodium 137.6 Potassium 4.3 Chloride 108 H Carbon Dioxide 18 L Anion Gap 12 BUN 24 H Creatinine 0.96 Est GFR ( Amer) > 60 Glucose 236 H Calcium 7.8 L Impressions: Abdomen/Pelvis CT 11/13/19 21:40 IMPRESSION: 1. Abnormal bowel gas pattern suggesting partial small bowel obstruction. The transition is in the left upper quadrant. The source of the bowel obstruction is unclear and this may represent adhesions. 2. Lobulated soft tissue mass with peripheral calcification seen in the right chest wall associated with the undersurface of a rib. This is only minimally increased in size when compared to an exam from 2012 suggesting a slow-growing process such as a neurofibroma or schwannoma. Small Bowel X-Ray 11/14/19 00:00 IMPRESSION: Findings are consistent with small bowel obstruction. The administered oral contrast material mostly remains within the gastric fundus/body on the 8 hour post-administration radiographs, indicating delayed transit of material into the small bowel. Chest X-Ray 11/19/19 00:00 IMPRESSION: NO ACUTE RADIOGRAPHIC FINDING IN THE CHEST. KUB X-Ray 11/19/19 11:33 IMPRESSION: NG tube has been placed as described. Assessment & Plan - Diagnosis (1) Small bowel obstruction Is this a current diagnosis for this admission?: Yes Plan: Status post lysis of adhesions. Patient's bowel function appears to have returned. NG clamp trial yielded only 10 cc of output. Will DC NG tube. If patient continues to do well we will plan to start a diet in the morning. His leukocytosis likely due to his urinary tract infection. - Time Anticipated Discharge Disposition: Home, Self Care Anticipated Discharge Timeframe: within 48 hours
[2019-11-21] MEDS: HEPARIN SOD (PORCINE) 5,000 UNIT/ML 1 ML VIAL SUBCUT SCH ×4 (00:10→21:11)
[2019-11-21] MEDS: PANTOPRAZOLE SODIUM 40 MG VIAL IV SCH ×2 (00:17→09:47)
[2019-11-21] MEDS: INSULIN LISPRO 100 UNIT/ML 3 ML VIAL SUBCUT SCH ×6 (00:36→22:50)
[2019-11-21 05:23] LABS: ABSOLUTE EOSINOPHILS # (AUTO) 0.4 10^3/uL (0.0-0.6); ABSOLUTE LYMPHOCYTES (AUTO) 1.4 10^3/uL (0.5-4.7); ABSOLUTE MONOCYTES (AUTO) 1.4 10^3/uL (0.1-1.4); ABSOLUTE NEUT (AUTO) 8.6 10^3/uL (1.7-8.2); BASOPHILS % (AUTO) 0.4 % (0-2); EOSINOPHILS % (AUTO) 3.3 % (0-6); HEMATOCRIT 43.9 % (37.9-51.0); HEMOGLOBIN 14.5 g/dL (13.5-17.0); LYMPHOCYTES % (AUTO) 11.5 % (13-45); MEAN CORPUSCULAR HEMOGLOBIN 28.1 pg (27.0-33.4); MEAN CORPUSCULAR HGB CONC 32.9 g/dL (32.0-36.0); MEAN CORPUSCULAR VOLUME 85 fl (80-97); PLATELET COUNT 107 10^3/uL (150-450); RED BLOOD COUNT 5.15 10^6/uL (4.35-5.55); RED CELL DISTRIBUTION WIDTH 15.1 % (11.5-14.0); SEGMENTED NEUTROPHILS % (AUTO) 72.8 % (42-78); TOTAL CELLS COUNTED % (AUTO) 100 %; WHITE BLOOD COUNT 11.8 10^3/uL (4.0-10.5)
[2019-11-21 05:38] LABS: ANION GAP 8 (5-19); BLOOD UREA NITROGEN 17 mg/dL (7-20); CALCIUM 7.8 mg/dL (8.4-10.2); CARBON DIOXIDE 24 mmol/L (22-30); CHLORIDE 108 mmol/L (98-107); GLUCOSE 205 mg/dL (75-110); POTASSIUM 4.3 mmol/L (3.6-5.0)
[2019-11-21] MEDS: CIPROFLOXACIN 400 MG/D5W RTU 400 MG/200 ML RTUPB IV SCH ×2 (05:50→20:14)
--- NOTE | 2019-11-21 11:02 | PDOC PROGRESS REPORT ---
Subjective Progress Note for:: 11/21/19 Subjective:: Feels okay. No nausea or vomiting. Denies any abdominal distention nor abdominal pain. Reason For Visit: SMALL BOWL OBSTRUCTION Physical Exam Vital Signs: Temp Pulse Resp BP Pulse Ox 98.6 F 110 H 18 120/63 96 11/20/19 19:46 11/21/19 00:25 11/20/19 19:46 11/21/19 00:25 11/21/19 00:25 Intake & Output 11/20/19 11/21/19 11/22/19 06:59 06:59 06:59 Intake Total 0 2400 Output Total 1905 770 Balance -1905 1630 Weight 118.4 kg 120.2 kg General appearance: PRESENT: no acute distress, cooperative Respiratory exam: PRESENT: clear to auscultation imelda Cardiovascular exam: PRESENT: RRR GI/Abdominal exam: PRESENT: other - Soft, nondistended, nontender to palpation. Wound clean dry and intact. Results Laboratory Results: 11/21/19 04:55 11/21/19 04:55 11/21/19 11/21/19 04:55 04:55 WBC 11.8 H RBC 5.15 Hgb 14.5 Hct 43.9 MCV 85 MCH 28.1 MCHC 32.9 RDW 15.1 H Plt Count 107 L Seg Neutrophils % 72.8 Sodium 139.9 Potassium 4.3 Chloride 108 H Carbon Dioxide 24 Anion Gap 8 BUN 17 Creatinine 0.99 Est GFR ( Amer) > 60 Glucose 205 H Calcium 7.8 L 11/19/19 14:45 Clean Catch Midstream Urine Culture - Final Enterococcus Faecalis(Group D) Escherichia Coli Impressions: Abdomen/Pelvis CT 11/13/19 21:40 IMPRESSION: 1. Abnormal bowel gas pattern suggesting partial small bowel obstruction. The transition is in the left upper quadrant. The source of the bowel obstruction is unclear and this may represent adhesions. 2. Lobulated soft tissue mass with peripheral calcification seen in the right chest wall associated with the undersurface of a rib. This is only minimally increased in size when compared to an exam from 2012 suggesting a slow-growing process such as a neurofibroma or schwannoma. Small Bowel X-Ray 11/14/19 00:00 IMPRESSION: Findings are consistent with small bowel obstruction. The administered oral contrast material mostly remains within the gastric fundus/body on the 8 hour post-administration radiographs, indicating delayed transit of material into the small bowel. Chest X-Ray 11/19/19 00:00 IMPRESSION: NO ACUTE RADIOGRAPHIC FINDING IN THE CHEST. KUB X-Ray 11/19/19 11:33 IMPRESSION: NG tube has been placed as described. Assessment & Plan - Diagnosis (1) Small bowel obstruction Is this a current diagnosis for this admission?: Yes Plan: Status post lysis of adhesions. Patient looks reasonably well. His NG tube was pulled yesterday and he has tolerated it being removed. Will try clear liquids. Suspect his setback after his operation was due to his urinary tract infection. - Time Critical Time spent with patient: Less than 15 minutes Anticipated Discharge Disposition: Home, Self Care Anticipated Discharge Timeframe: within 48 hours
[2019-11-21] MEDS: NORMAL SALINE 1000 ML 1,000 ML IV PRN (11:52)
--- NOTE | 2019-11-21 14:50 | PDOC PROGRESS REPORT ---
Subjective Progress Note for:: 11/21/19 Subjective:: Patient seen by the bedside, he looks much better, he has E faecalis UTI sensitive to fluoroquinolone, started on Cipro yesterday Reason For Visit: SMALL BOWL OBSTRUCTION Physical Exam Vital Signs: Temp Pulse Resp BP Pulse Ox 98.6 F 110 H 18 120/63 96 11/20/19 19:46 11/21/19 00:25 11/20/19 19:46 11/21/19 00:25 11/21/19 00:25 Intake & Output 11/20/19 11/21/19 11/22/19 06:59 06:59 06:59 Intake Total 0 2400 Output Total 1905 770 Balance -1905 1630 Weight 118.4 kg 120.2 kg General appearance: PRESENT: no acute distress Eye exam: PRESENT: PERRLA Respiratory exam: PRESENT: clear to auscultation imelda Cardiovascular exam: PRESENT: +S1, +S2 GI/Abdominal exam: PRESENT: soft Neurological exam: PRESENT: alert Results Laboratory Results: 11/21/19 04:55 11/21/19 04:55 11/21/19 11/21/19 04:55 04:55 WBC 11.8 H RBC 5.15 Hgb 14.5 Hct 43.9 MCV 85 MCH 28.1 MCHC 32.9 RDW 15.1 H Plt Count 107 L Seg Neutrophils % 72.8 Sodium 139.9 Potassium 4.3 Chloride 108 H Carbon Dioxide 24 Anion Gap 8 BUN 17 Creatinine 0.99 Est GFR ( Amer) > 60 Glucose 205 H Calcium 7.8 L 11/19/19 14:45 Clean Catch Midstream Urine Culture - Final Enterococcus Faecalis(Group D) Escherichia Coli Impressions: Abdomen/Pelvis CT 11/13/19 21:40 IMPRESSION: 1. Abnormal bowel gas pattern suggesting partial small bowel obstruction. The transition is in the left upper quadrant. The source of the bowel obstruction is unclear and this may represent adhesions. 2. Lobulated soft tissue mass with peripheral calcification seen in the right chest wall associated with the undersurface of a rib. This is only minimally increased in size when compared to an exam from 2012 suggesting a slow-growing process such as a neurofibroma or schwannoma. Small Bowel X-Ray 11/14/19 00:00 IMPRESSION: Findings are consistent with small bowel obstruction. The administered oral contrast material mostly remains within the gastric fundus/body on the 8 hour post-administration radiographs, indicating delayed transit of material into the small bowel. Chest X-Ray 11/19/19 00:00 IMPRESSION: NO ACUTE RADIOGRAPHIC FINDING IN THE CHEST. KUB X-Ray 11/19/19 11:33 IMPRESSION: NG tube has been placed as described. Assessment & Plan - Diagnosis (1) Small bowel obstruction Is this a current diagnosis for this admission?: Yes (2) Dehydration Is this a current diagnosis for this admission?: Yes (3) Urinary tract infection due to Enterococcus Is this a current diagnosis for this admission?: Yes Plan: He has UTI due to E faecalis sensitive to fluoroquinolones, started on Cipro yesterday - Time Time Spent with patient: 15-24 minutes Level of Care: IMCU Medications reviewed and adjusted accordingly: Yes Anticipated discharge: Home Anticipated DC Timeframe: within 72 hours
[2019-11-22 05:33] LABS: ABSOLUTE EOSINOPHILS # (AUTO) 0.3 10^3/uL (0.0-0.6); ABSOLUTE LYMPHOCYTES (AUTO) 1.9 10^3/uL (0.5-4.7); ABSOLUTE MONOCYTES (AUTO) 1.3 10^3/uL (0.1-1.4); ABSOLUTE NEUT (AUTO) 7.1 10^3/uL (1.7-8.2); BASOPHILS % (AUTO) 0.4 % (0-2); HEMATOCRIT 44.8 % (37.9-51.0); LYMPHOCYTES % (AUTO) 17.8 % (13-45); MEAN CORPUSCULAR HEMOGLOBIN 28.5 pg (27.0-33.4); MEAN CORPUSCULAR HGB CONC 33.4 g/dL (32.0-36.0); MEAN CORPUSCULAR VOLUME 85 fl (80-97); MONOCYTES % (AUTO) 12.4 % (3-13); PLATELET COUNT 119 10^3/uL (150-450); RED BLOOD COUNT 5.25 10^6/uL (4.35-5.55); RED CELL DISTRIBUTION WIDTH 15.2 % (11.5-14.0); SEGMENTED NEUTROPHILS % (AUTO) 66.4 % (42-78); TOTAL CELLS COUNTED % (AUTO) 100 %; WHITE BLOOD COUNT 10.6 10^3/uL (4.0-10.5)
[2019-11-22] MEDS: CIPROFLOXACIN 400 MG/D5W RTU 400 MG/200 ML RTUPB IV SCH ×2 (05:34→18:49)
[2019-11-22 05:49] LABS: ANION GAP 9 (5-19); BLOOD UREA NITROGEN 14 mg/dL (7-20); CALCIUM 7.8 mg/dL (8.4-10.2); CARBON DIOXIDE 23 mmol/L (22-30); CHLORIDE 104 mmol/L (98-107); GLUCOSE 214 mg/dL (75-110); POTASSIUM 3.8 mmol/L (3.6-5.0)
[2019-11-22] MEDS: HEPARIN SOD (PORCINE) 5,000 UNIT/ML 1 ML VIAL SUBCUT SCH ×3 (05:53→22:03)
[2019-11-22] MEDS: INSULIN LISPRO 100 UNIT/ML 3 ML VIAL SUBCUT SCH ×4 (08:55→22:02)
--- NOTE | 2019-11-22 10:52 | PDOC PROGRESS REPORT ---
Subjective Progress Note for:: 11/22/19 Reason For Visit: SMALL BOWL OBSTRUCTION Patient feeling better, tolerating liquids. Denies flatus; has been hiking in the halls. Physical Exam Vital Signs: Temp Pulse Resp BP Pulse Ox 97.6 F 103 H 20 125/67 97 11/22/19 07:22 11/22/19 07:22 11/22/19 07:22 11/22/19 07:22 11/22/19 07:22 Intake & Output 11/21/19 11/22/19 11/23/19 06:59 06:59 06:59 Intake Total 2400 1180 200 Output Total 770 1250 Balance 1630 -70 200 Weight 120.2 kg 119.8 kg General appearance: PRESENT: no acute distress GI/Abdominal exam: PRESENT: other - Moderate distention. No tenderness; operative dressing removed Results Laboratory Results: 11/22/19 04:31 11/22/19 04:31 11/22/19 11/22/19 04:31 04:31 WBC 10.6 H RBC 5.25 Hgb 15.0 Hct 44.8 MCV 85 MCH 28.5 MCHC 33.4 RDW 15.2 H Plt Count 119 L Seg Neutrophils % 66.4 Sodium 135.9 L Potassium 3.8 Chloride 104 Carbon Dioxide 23 Anion Gap 9 BUN 14 Creatinine 0.85 Est GFR ( Amer) > 60 Glucose 214 H Calcium 7.8 L 11/19/19 14:45 Clean Catch Midstream Urine Culture - Final Enterococcus Faecalis(Group D) Escherichia Coli Impressions: Abdomen/Pelvis CT 11/13/19 21:40 IMPRESSION: 1. Abnormal bowel gas pattern suggesting partial small bowel obstruction. The transition is in the left upper quadrant. The source of the bowel obstruction is unclear and this may represent adhesions. 2. Lobulated soft tissue mass with peripheral calcification seen in the right chest wall associated with the undersurface of a rib. This is only minimally increased in size when compared to an exam from 2013 suggesting a slow-growing process such as a neurofibroma or schwannoma. Small Bowel X-Ray 11/14/19 00:00 IMPRESSION: Findings are consistent with small bowel obstruction. The administered oral contrast material mostly remains within the gastric fundus/body on the 8 hour post-administration radiographs, indicating delayed transit of material into the small bowel. Chest X-Ray 11/19/19 00:00 IMPRESSION: NO ACUTE RADIOGRAPHIC FINDING IN THE CHEST. KUB X-Ray 11/19/19 11:33 IMPRESSION: NG tube has been placed as described. Assessment & Plan - Diagnosis (1) Small bowel obstruction Is this a current diagnosis for this admission?: Yes Plan: Pression: Patient with 1 week status post water laparotomy, lysis of adhesions, doing reasonably well, ileus resolved, tolerating clear liquids. Beatties reasonably controlled. No evidence of sepsis wound infection etc. Normal white count Recommendations: 1. Increase level of activity; get in the shower 2. Hopefully can get discharged home in the next 24 to 48 hours. 3. Discussed the above with Dr. Shah, and staff (2) Diabetes mellitus Qualifiers: Diabetes mellitus type: type 2 Diabetes mellitus assisted insulin use: wit h terminal worker use Diabetes mellitus complication status: with other specified complication Qualified Code(s): E11.69 - Type 2 diabetes mellitus with other specified complication; Z79.4 - terminologist (current) use of insulin Is this a current diagnosis for this admission?: Yes (3) Acute renal insufficiency Is this a current diagnosis for this admission?: Yes (4) Dehydration Is this a current diagnosis for this admission?: Yes (5) Abdominal pain Qualifiers: Abdominal location: generalized Qualified Code(s): R10.84 - Generalized abdominal pain Is this a current diagnosis for this admission?: Yes - Time Time Spent: 30 to 50 Minutes Smoking Cessation Education: 3 to 10 minutes Medications reviewed and adjusted accordingly: Yes Anticipated Discharge Disposition: Home, Self Care Anticipated Discharge Timeframe: within 24 hours - Inpatient Certification Based on my medical assessment, after consideration of the patient's comorbidities, presenting symptoms, or acuity I expect that the services needed warrant INPATIENT care.: Yes I certify that my determination is in accordance with my understanding of Medicare's requirements for reasonable and necessary INPATIENT services [42 CFR 412.3e].: Yes
[2019-11-22] MEDS: NORMAL SALINE 1000 ML 1,000 ML IV PRN (11:49)
--- NOTE | 2019-11-22 12:32 | PDOC PROGRESS REPORT ---
Subjective Progress Note for:: 11/22/19 Subjective:: Patient is currently doing fair Still having some abdominal discomfort No nausea no vomiting Currently on a Cipro for UTI Unable to sleep asking for the sleep medications and unable to take her CPAP which make more discomfort due to the recent surgery No chest pain no short of breath Reason For Visit: SMALL BOWL OBSTRUCTION Physical Exam Vital Signs: Temp Pulse Resp BP Pulse Ox 97.9 F 98 24 H 147/76 H 97 11/22/19 11:34 11/22/19 11:34 11/22/19 11:34 11/22/19 11:34 11/22/19 11:34 Intake & Output 11/21/19 11/22/19 11/23/19 06:59 06:59 06:59 Intake Total 2400 1180 1200 Output Total 770 1250 Balance 1630 -70 1200 Weight 120.2 kg 119.8 kg General appearance: PRESENT: no acute distress, well-developed, well-nourished Head exam: PRESENT: atraumatic, normocephalic Eye exam: PRESENT: conjunctiva pink, EOMI, PERRLA. ABSENT: scleral icterus Ear exam: PRESENT: normal external ear exam Mouth exam: PRESENT: moist, tongue midline Neck exam: PRESENT: full ROM. ABSENT: carotid bruit, JVD, lymphadenopathy, thyromegaly Respiratory exam: PRESENT: clear to auscultation imelda Cardiovascular exam: PRESENT: RRR. ABSENT: diastolic murmur, rubs, systolic murmur Pulses: PRESENT: normal dorsalis pedis pul, +2 pedal pulses bilateral Vascular exam: PRESENT: normal capillary refill GI/Abdominal exam: PRESENT: normal bowel sounds, soft. ABSENT: distended, guarding, mass, organolmegaly, rebound, tenderness Additonal comments: Surgical site is clean and intact Rectal exam: PRESENT: deferred Musculoskeletal exam: PRESENT: ambulatory Neurological exam: PRESENT: alert, awake, oriented to person, oriented to place, oriented to time, oriented to situation, CN II-XII grossly intact. ABSENT: motor sensory deficit Psychiatric exam: PRESENT: appropriate affect, normal mood. ABSENT: homicidal ideation, suicidal ideation Skin exam: PRESENT: dry, intact, warm. ABSENT: cyanosis, rash Results Laboratory Results: 11/22/19 04:31 11/22/19 04:31 11/22/19 11/22/19 04:31 04:31 WBC 10.6 H RBC 5.25 Hgb 15.0 Hct 44.8 MCV 85 MCH 28.5 MCHC 33.4 RDW 15.2 H Plt Count 119 L Seg Neutrophils % 66.4 Sodium 135.9 L Potassium 3.8 Chloride 104 Carbon Dioxide 23 Anion Gap 9 BUN 14 Creatinine 0.85 Est GFR ( Amer) > 60 Glucose 214 H Calcium 7.8 L 11/19/19 14:45 Clean Catch Midstream Urine Culture - Final Enterococcus Faecalis(Group D) Escherichia Coli Impressions: Abdomen/Pelvis CT 11/13/19 21:40 IMPRESSION: 1. Abnormal bowel gas pattern suggesting partial small bowel obstruction. The transition is in the left upper quadrant. The source of the bowel obstruction is unclear and this may represent adhesions. 2. Lobulated soft tissue mass with peripheral calcification seen in the right chest wall associated with the undersurface of a rib. This is only minimally increased in size when compared to an exam from 2012 suggesting a slow-growing process such as a neurofibroma or schwannoma. Small Bowel X-Ray 11/14/19 00:00 IMPRESSION: Findings are consistent with small bowel obstruction. The administered oral contrast material mostly remains within the gastric fundus/body on the 8 hour post-administration radiographs, indicating delayed transit of material into the small bowel. Chest X-Ray 11/19/19 00:00 IMPRESSION: NO ACUTE RADIOGRAPHIC FINDING IN THE CHEST. KUB X-Ray 11/19/19 11:33 IMPRESSION: NG tube has been placed as described. Assessment & Plan - Diagnosis (1) Abdominal pain Qualifiers: Abdominal location: generalized Qualified Code(s): R10.84 - Generalized abdominal pain Is this a current diagnosis for this admission?: Yes Plan: Status post laparotomy currently all stable (2) Hypertension Qualifiers: Hypertension type: essential hypertension Qualified Code(s): I10 - Essential (primary) hypertension Is this a current diagnosis for this admission?: Yes Plan: Currently all stable (3) Acute renal insufficiency Is this a current diagnosis for this admission?: Yes (4) Dehydration Is this a current diagnosis for this admission?: Yes (5) Diabetes mellitus Qualifiers: Diabetes mellitus type: type 2 Diabetes mellitus terminal makeup operator insulin use: with penitentiary use Diabetes mellitus complication status: with other specified complication Qualified Code(s): E11.69 - Type 2 diabetes mellitus with other specified complication; Z79.4 - penitentiary (current) use of insulin Is this a current diagnosis for this admission?: Yes (6) Small bowel obstruction Is this a current diagnosis for this admission?: Yes Plan: Status post surgery (7) Sleep apnea Qualifiers: Sleep apnea type: obstructive Qualified Code(s): G47.33 - Obstructive sleep apnea (adult) (pediatric) Is this a current diagnosis for this admission?: Yes (8) Elevated white blood cell count Qualifiers: Leukocytosis type: unspecified Qualified Code(s): D72.829 - Elevated white blood cell count, unspecified Is this a current diagnosis for this admission?: Yes (9) Sinus tachycardia Is this a current diagnosis for this admission?: Yes (10) Urinary tract infection Qualifiers: Urinary tract infection type: site unspecified Is this a current diagnosis for this admission?: Yes Plan: Continues on IV Cipro - Time Time Spent with patient: 25-34 minutes Level of Care: TELE Medications reviewed and adjusted accordingly: Yes Anticipated discharge: Home Anticipated DC Timeframe: within 72 hours - Plan Summary Plan Summary: Patient seen with the general surgery continues the current medical management will add in the Ambien 5 mg at night
[2019-11-22] MEDS ORDERED: ZOLPIDEM TARTRATE 5 MG TABLET PO SCH (22:00)
[2019-11-23] MEDS: CIPROFLOXACIN 400 MG/D5W RTU 400 MG/200 ML RTUPB IV SCH (06:34)
[2019-11-23] MEDS: HEPARIN SOD (PORCINE) 5,000 UNIT/ML 1 ML VIAL SUBCUT SCH ×2 (06:35→13:04)
[2019-11-23] MEDS: INSULIN LISPRO 100 UNIT/ML 3 ML VIAL SUBCUT SCH ×2 (07:37→11:38)
--- NOTE | 2019-11-23 08:10 | PDOC DISCHARGE SUMMARY ---
General - Admit/Disc Date/PCP Admission Date/Primary Care Provider: 11/14/19 10:37 YASH PATEL MD Discharge Date: 11/23/19 - Discharge Diagnosis Final Diagnosis: small bowel obstruction - Assessment Summary: This is a 64-year-old morbidly obese male with history of diabetes hypertension presented the emergency room on 13 November with increasing abdominal pain inability to pass flatus he was admitted to the hospital for small bowel obstruction treated initially conservatively with medical treatment. After a number of days in the hospital with unknown resolving small bowel obstruction he was taken to the operating room for exploratory laparotomy with lysis of adhesions. Postoperatively had he had initially a routine course however he developed an ileus and required replacement of his NG tube. His NG tube remain in place for a number days at which time he started again passing some flatus and had resent resumption of bowel function. Subsequently he improved continue to increase his activity and was started on a clear liquid diet which is slowly advanced to full liquid diet by the time of discharge. At the time of discharge she is tolerating a full liquid diet he is passing flatus and stool his abdomen is soft and nontender his wound is clean and dry and is ready for discharge home today. He was followed up in surgery clinic in 7 to 10 days after discharge for staple removal. - Additional Information Resuscitation Status: Full Code Discharge Diet: As Tolerated Discharge Activity: Activity As Tolerated, No Lifting Over 10 Pounds - Patient is to follow-up in surgical clinic as scheduled Referrals: [facility] [Provider Group] - 11/26/19 3:15 pm Home Medications: Glimepiride [Amaryl 4 Mg Tablet] 8 mg PO QHS 06/24/12 Empagliflozin/Metformin HCl [Synjardy Xr 12.5-1,000 mg Tab] 1 tab PO BID 11/14/19 Insulin Degludec [Tresiba Flextouch U-200] 100 units SUBCUT QHS 11/14/19 Lisinopril/Hydrochlorothiazide [Lisinopril-Hctz 10-12.5 mg Tab] 1 tab PO DAILY 11/14/19 Pioglitazone HCl [Actos 30 mg Tablet] 30 mg PO DAILY 11/14/19 Semaglutide [Ozempic] 0.25 mg SUBCUT WE@1000 PRN 11/14/19 Simvastatin [Zocor 10 mg Tablet] 10 mg PO QHS 11/14/19 History of Present Illiness History of Present Illness: CHUCKY VASQUEZ is a 64 year old male Physical Exam Vital Signs: Temp Pulse Resp BP Pulse Ox 98.6 F 105 H 18 102/64 98 11/22/19 23:59 11/22/19 23:59 11/22/19 23:59 11/22/19 23:59 11/22/19 19:27 Intake & Output 11/22/19 11/23/19 11/24/19 06:59 06:59 06:59 Intake Total 1180 2150 Output Total 1250 1625 Balance -70 525 Weight 119.8 kg 122.4 kg Results Laboratory Results: WBC 10.6 10^3/uL (4.0-10.5) H 11/22/19 04:31 RBC 5.25 10^6/uL (4.35-5.55) 11/22/19 04:31 Hgb 15.0 g/dL (13.5-17.0) 11/22/19 04:31 Hct 44.8 % (37.9-51.0) 11/22/19 04:31 MCV 85 fl (80-97) 11/22/19 04:31 MCH 28.5 pg (27.0-33.4) 11/22/19 04:31 MCHC 33.4 g/dL (32.0-36.0) 11/22/19 04:31 RDW 15.2 % (11.5-14.0) H 11/22/19 04:31 Plt Count 119 10^3/uL (150-450) L 11/22/19 04:31 Lymph % (Auto) 17.8 % (13-45) 11/22/19 04:31 Towns % (Auto) 12.4 % (3-13) 11/22/19 04:31 Eos % (Auto) 3.0 % (0-6) 11/22/19 04:31 Baso % (Auto) 0.4 % (0-2) 11/22/19 04:31 Absolute Neuts (auto) 7.1 10^3/uL (1.7-8.2) 11/22/19 04:31 Absolute Lymphs (auto) 1.9 10^3/uL (0.5-4.7) 11/22/19 04:31 Absolute Monos (auto) 1.3 10^3/uL (0.1-1.4) 11/22/19 04:31 Absolute Eos (auto) 0.3 10^3/uL (0.0-0.6) 11/22/19 04:31 Absolute Basos (auto) 0.0 10^3/uL (0.0-0.2) 11/22/19 04:31 Total Counted 100 11/19/19 05:13 Seg Neutrophils % 66.4 % (42-78) 11/22/19 04:31 Seg Neuts % (Manual) 82 % (42-78) H 11/19/19 05:13 Band Neutrophils % 8 % (3-5) H 11/19/19 05:13 Lymphocytes % (Manual) 2 % (13-45) L 11/19/19 05:13 Atypical Lymphs % 2 % (0) 11/19/19 05:13 Monocytes % (Manual) 6 % (3-13) 11/19/19 05:13 Eosinophils % (Manual) 0 % (0-6) 11/19/19 05:13 Basophils % (Manual) 0 % (0-2) 11/19/19 05:13 Abs Neuts (Manual) 17.3 10^3/uL (1.7-8.2) H 11/19/19 05:13 Abs Lymphs (Manual) 0.8 10^3/uL (0.5-4.7) 11/19/19 05:13 Abs Monocytes (Manual) 1.2 10^3/uL (0.1-1.4) 11/19/19 05:13 Absolute Eos (Manual) 0.0 10^3/uL (0.0-0.6) 11/19/19 05:13 Abs Basophils (Manual) 0.0 10^3/uL (0.0-0.2) 11/19/19 05:13 Toxic Granulation SLIGHT 11/19/19 05:13 Toxic Vacuolation PRESENT 11/19/19 05:13 Platelet Comment ADEQUATE 11/19/19 05:13 Anisocytosis 1+ 11/19/19 05:13 Tear Drop Cells SLIGHT 11/19/19 05:13 Carbonic Acid 0.92 mmol/L (1.05-1.35) L 11/19/19 14:45 HCO3/H2CO3 Ratio 17:1 11/19/19 14:45 ABG pH 7.35 (7.35-7.45) 11/19/19 14:45 ABG pCO2 30.6 mmHg (35-45) L 11/19/19 14:45 ABG pO2 80.2 mmHg (80-100) 11/19/19 14:45 ABG HCO3 16.3 mmol/L (20-24) L 11/19/19 14:45 ABG Total CO2 17.3 mmol/L (23-27) L 11/19/19 14:45 ABG O2 Saturation 95.4 % (94-98) 11/19/19 14:45 ABG Base Excess -7.9 mmol/L 11/19/19 14:45 FiO2 2L 11/19/19 14:45 Sodium 135.9 mmol/L (137-145) L 11/22/19 04:31 Potassium 3.8 mmol/L (3.6-5.0) 11/22/19 04:31 Chloride 104 mmol/L (98-107) 11/22/19 04:31 Carbon Dioxide 23 mmol/L (22-30) 11/22/19 04:31 Anion Gap 9 (5-19) 11/22/19 04:31 BUN 14 mg/dL (7-20) 11/22/19 04:31 Creatinine 0.85 mg/dL (0.52-1.25) 11/22/19 04:31 Est GFR ( Amer) > 60 (>60) 11/22/19 04:31 Est GFR (MDRD) Non-Af > 60 (>60) 11/22/19 04:31 Glucose 214 mg/dL (75-110) H 11/22/19 04:31 POC Glucose 227 mg/dL (70-110) H 11/23/19 06:36 Lactic Acid 0.8 mmol/L (0.7-2.1) 11/19/19 09:46 Calcium 7.8 mg/dL (8.4-10.2) L 11/22/19 04:31 Total Bilirubin 0.7 mg/dL (0.2-1.3) 11/19/19 05:13 Direct Bilirubin 0.2 mg/dL (0.0-0.4) 11/19/19 05:13 Neonat Total Bilirubin Not Reportable 11/19/19 05:13 Neonat Direct Bilirubin Not Reportable 11/19/19 05:13 Neonat Indirect Bili Not Reportable 11/19/19 05:13 AST 20 U/L (17-59) 11/19/19 05:13 ALT 19 U/L (<50) 11/19/19 05:13 Alkaline Phosphatase 60 U/L (38-126) 11/19/19 05:13 Total Protein 5.8 g/dL (6.3-8.2) L 11/19/19 05:13 Albumin 3.0 g/dL (3.5-5.0) L 11/19/19 05:13 Lipase 156.0 U/L (23-300) 11/15/19 06:17 Urine Color YELLOW 11/19/19 14:45 Urine Appearance CLEAR 11/19/19 14:45 Urine pH 5.0 (5.0-9.0) 11/19/19 14:45 Ur Specific [place] 1.027 11/19/19 14:45 Urine Protein 30 mg/dL (NEGATIVE) H 11/19/19 14:45 Urine Glucose (UA) >=500 mg/dL (NEGATIVE) H 11/19/19 14:45 Urine Ketones 80 mg/dL (NEGATIVE) H 11/19/19 14:45 Urine Blood NEGATIVE (NEGATIVE) 11/19/19 14:45 Urine Nitrite NEGATIVE (NEGATIVE) 11/19/19 14:45 Urine Bilirubin NEGATIVE (NEGATIVE) 11/19/19 14:45 Urine Urobilinogen 4.0 mg/dL (<2.0) H 11/19/19 14:45 Ur Leukocyte Esterase NEGATIVE (NEGATIVE) 11/19/19 14:45 Urine WBC (Auto) 1 /HPF 11/19/19 14:45 Urine RBC (Auto) 1 /HPF 11/19/19 14:45 Urine Mucus (Auto) RARE /LPF 11/19/19 14:45 Urine Ascorbic Acid NEGATIVE (NEGATIVE) 11/19/19 14:45 SARS-CoV-2 (PCR) NEGATIVE (NEGATIVE) 11/15/19 10:20 Impressions: Abdomen/Pelvis CT 11/13/19 21:40 IMPRESSION: 1. Abnormal bowel gas pattern suggesting partial small bowel obstruction. The transition is in the left upper quadrant. The source of the bowel obstruction is unclear and this may represent adhesions. 2. Lobulated soft tissue mass with peripheral calcification seen in the right chest wall associated with the undersurface of a rib. This is only minimally increased in size when compared to an exam from 2013 suggesting a slow-growing process such as a neurofibroma or schwannoma. KUB X-Ray 11/14/19 00:00 IMPRESSION: 1. NG tube in appropriate position. 2. Findings compatible small bowel obstruction. Small Bowel X-Ray 11/14/19 00:00 IMPRESSION: Findings are consistent with small bowel obstruction. The administered oral contrast material mostly remains within the gastric fundus/body on the 8 hour post-administration radiographs, indicating delayed transit of material into the small bowel. KUB X-Ray 11/15/19 06:00 IMPRESSION: Contrast has reached the colon. Findings are consistent with either adynamic ileus or partial small bowel obstruction. Chest X-Ray 11/19/19 00:00 IMPRESSION: NO ACUTE RADIOGRAPHIC FINDING IN THE CHEST. KUB X-Ray 11/19/19 11:33 IMPRESSION: NG tube has been placed as described.
--- NOTE | 2019-11-23 09:26 | PDOC PROGRESS REPORT ---
Subjective Progress Note for:: 11/23/19 Subjective:: Patient is currently doing much better Patient's denied any chest pain no short of breath No abdominal pain Patient is positive bowel movement Patient walk in the hallway without any problems Patient with no fever no chills Patient is discharged by the surgery Discussed with the patient's about the adjustment of the insulin currently on a sliding scale and patient does not require home medication as before currently until back to completely normal Patient already called his radiotelegraphist and adjust the medications per radiotelegraphist on discharge Reason For Visit: SMALL BOWL OBSTRUCTION Physical Exam Vital Signs: Temp Pulse Resp BP Pulse Ox 97.7 F 100 20 143/79 H 95 11/23/19 07:37 11/23/19 07:37 11/23/19 07:37 11/23/19 07:37 11/23/19 07:37 Intake & Output 11/22/19 11/23/19 11/24/19 06:59 06:59 06:59 Intake Total 1180 2150 Output Total 1250 1625 Balance -70 525 Weight 119.8 kg 122.4 kg General appearance: PRESENT: no acute distress, well-developed, well-nourished Head exam: PRESENT: atraumatic, normocephalic Eye exam: PRESENT: conjunctiva pink, EOMI, PERRLA. ABSENT: scleral icterus Ear exam: PRESENT: normal external ear exam Mouth exam: PRESENT: moist, tongue midline Neck exam: PRESENT: full ROM. ABSENT: carotid bruit, JVD, lymphadenopathy, thyromegaly Respiratory exam: PRESENT: clear to auscultation imelda Cardiovascular exam: PRESENT: RRR. ABSENT: diastolic murmur, rubs, systolic murmur Pulses: PRESENT: normal dorsalis pedis pul, +2 pedal pulses bilateral Vascular exam: PRESENT: normal capillary refill GI/Abdominal exam: PRESENT: normal bowel sounds, soft. ABSENT: distended, guarding, mass, organolmegaly, rebound, tenderness Additonal comments: Surgical incision is intact Rectal exam: PRESENT: deferred Extremities exam: ABSENT: pedal edema Musculoskeletal exam: PRESENT: ambulatory Neurological exam: PRESENT: alert, awake, oriented to person, oriented to place, oriented to time, oriented to situation, CN II-XII grossly intact. ABSENT: motor sensory deficit Psychiatric exam: PRESENT: appropriate affect, normal mood. ABSENT: homicidal ideation, suicidal ideation Skin exam: PRESENT: dry, intact, warm. ABSENT: cyanosis, rash Results Laboratory Results: 11/22/19 04:31 11/22/19 04:31 Impressions: Abdomen/Pelvis CT 11/13/19 21:40 IMPRESSION: 1. Abnormal bowel gas pattern suggesting partial small bowel obstruction. The transition is in the left upper quadrant. The source of the bowel obstruction is unclear and this may represent adhesions. 2. Lobulated soft tissue mass with peripheral calcification seen in the right chest wall associated with the undersurface of a rib. This is only minimally increased in size when compared to an exam from 2013 suggesting a slow-growing process such as a neurofibroma or schwannoma. Small Bowel X-Ray 11/14/19 00:00 IMPRESSION: Findings are consistent with small bowel obstruction. The administered oral contrast material mostly remains within the gastric fundus/body on the 8 hour post-administration radiographs, indicating delayed transit of material into the small bowel. Chest X-Ray 11/19/19 00:00 IMPRESSION: NO ACUTE RADIOGRAPHIC FINDING IN THE CHEST. KUB X-Ray 11/19/19 11:33 IMPRESSION: NG tube has been placed as described. Assessment & Plan - Diagnosis (1) Abdominal pain Qualifiers: Abdominal location: generalized Qualified Code(s): R10.84 - Generalized abdominal pain Is this a current diagnosis for this admission?: Yes Plan: Status post laparotomy currently all stable (2) Hypertension Qualifiers: Hypertension type: essential hypertension Qualified Code(s): I10 - Essential (primary) hypertension Is this a current diagnosis for this admission?: Yes Plan: Currently all stable (3) Acute renal insufficiency Is this a current diagnosis for this admission?: Yes Plan: Currently all resolved (4) Dehydration Is this a current diagnosis for this admission?: Yes (5) Diabetes mellitus Qualifiers: Diabetes mellitus type: type 2 Diabetes mellitus assisted insulin use: with assisted use Diabetes mellitus complication status: with other specified complication Qualified Code(s): E11.69 - Type 2 diabetes mellitus with other specified complication; 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 Is this a current diagnosis for this admission?: Yes Plan: f/u with the radiotelegraphist (6) Small bowel obstruction Is this a current diagnosis for this admission?: Yes Plan: As per surgery (7) Sleep apnea Qualifiers: Sleep apnea type: obstructive Qualified Code(s): G47.33 - Obstructive sleep apnea (adult) (pediatric) Is this a current diagnosis for this admission?: Yes (8) Elevated white blood cell count Qualifiers: Leukocytosis type: unspecified Qualified Code(s): D72.829 - Elevated white blood cell count, unspecified Is this a current diagnosis for this admission?: Yes (9) Sinus tachycardia Is this a current diagnosis for this admission?: Yes (10) Urinary tract infection Qualifiers: Urinary tract infection type: site unspecified Is this a current diagnosis for this admission?: Yes - Time Time Spent with patient: 15-24 minutes Level of Care: TELE Medications reviewed and adjusted accordingly: Yes Anticipated discharge: Home Anticipated DC Timeframe: within 24 hours - Plan Summary Plan Summary: Patient is stable medically Discussed with the patient about her continues to 5 more days of antibiotic Cipro for UTI Follow with the surgery instructions Follow-up with the Dr. Smith Follow with the radiotelegraphist and adjust insulin
[2019-11-23 12:09] VITALS: BP 111/68
== END 2019-11-23 13:25 | disposition home or self-care (01) | DRG 336 ==
LOC: ER 21:12 → EH 11-14 01:30 → 4N 11-14 02:50 → OBSVTOIN 11-14 10:37
PROVIDERS: ATTEND Surgery
PROC: 0DN80ZZ Release Small Intestine, Open Approach (ICD-10-PCS; principal; 2019-11-15 12:30)
DX: K56.51 Intestinal adhesions [bands], with partial obstruction (principal); R65.10 Systemic inflammatory response syndrome (SIRS) of non-infectious origin without acute organ dysfunction; N39.0 Urinary tract infection, site not specified; Z68.36 Body mass index [BMI] 36.0-36.9, adult; E11.69 Type 2 diabetes mellitus with other specified complication; E66.01 Morbid (severe) obesity due to excess calories; D72.829 Elevated white blood cell count, unspecified; B96.20 Unspecified Escherichia coli [E. coli] as the cause of diseases classified elsewhere; K91.30 Postprocedural intestinal obstruction, unspecified as to partial versus complete; I10 Essential (primary) hypertension; Y83.8 Other surgical procedures as the cause of abnormal reaction of the patient, or of later complication, without mention of misadventure at the time of the procedure; G47.33 Obstructive sleep apnea (adult) (pediatric); E78.5 Hyperlipidemia, unspecified; K21.9 Gastro-esophageal reflux disease without esophagitis; K42.9 Umbilical hernia without obstruction or gangrene; N28.9 Disorder of kidney and ureter, unspecified; E86.0 Dehydration; M19.90 Unspecified osteoarthritis, unspecified site; R00.0 Tachycardia, unspecified; Z11.59 Encounter for screening for other viral diseases; Z77.22 Contact with and (suspected) exposure to environmental tobacco smoke (acute) (chronic); Z79.4 Long term (current) use of insulin; Z79.899 Other long term (current) drug therapy; Z83.3 Family history of diabetes mellitus; Z82.49 Family history of ischemic heart disease and other diseases of the circulatory system; Z88.0 Allergy status to penicillin
CPT/HCPCS: 36415; 36600; 71045; 74018; 74176; 74250; 790; 80048; 80053; 80076; 81001; 82803; 82962; 83605; 83690; 85025; 87086; 87088; 87186; 87635; 93005; 93010; 93306; 94660; 94799; 96361; 96374; 96375; 99285; C1758; C9113; C9290; C9803; G0378; J0330; J0744; J1100; J1644; J1815; J1885; J2250; J2270; J2405; J2704; J3010; J3480; J3490; J7030

== ENCOUNTER 2019-11-26 16:25 | Emergency (ER) | payer OTHER ==
[2019-11-26] MEDS ORDERED: NORMAL SALINE 1000 ML 1,000 ML IV ONE ×2 (17:00→20:24)
[2019-11-26] MEDS ORDERED: VANCOMYCIN HCL INJ 1000 MG VIAL IV ONE (17:01)
[2019-11-26] MEDS ORDERED: AZTREONAM INJ 1 GM VIAL IV ONE (17:02)
[2019-11-26 17:06] LABS: VENOUS BLOOD BASE EXCESS -11.4 mmol/L; VENOUS BLOOD HCO3 14.3 mmol/L (20-32); VENOUS BLOOD PH 7.27 (7.30-7.42)
[2019-11-26 17:11] LABS: INTERNATIONAL RATION (INR) 1.27; PROTHROMBIN TIME 16.1 SEC (11.4-15.4)
--- NOTE | 2019-11-26 17:16 | RADIOLOGY REPORT (SQ) ---
EXAM DESCRIPTION: CHEST SINGLE VIEW IMAGES COMPLETED DATE/TIME: 11/26/2019 5:07 pm REASON FOR STUDY: sob COMPARISON: 11/19/2019 EXAM PARAMETERS: NUMBER OF VIEWS: One view. TECHNIQUE: Single frontal radiographic view of the chest acquired. RADIATION DOSE: NA LIMITATIONS: None. FINDINGS: LUNGS AND PLEURA: No opacities, masses or pneumothorax. No pleural effusion. MEDIASTINUM AND HILAR STRUCTURES: No masses. Contour normal. HEART AND VASCULAR STRUCTURES: Heart normal in size. Normal vasculature. BONES: No acute findings. HARDWARE: None in the chest. OTHER: No other significant finding. IMPRESSION: NO ACUTE RADIOGRAPHIC FINDING IN THE CHEST. TECHNICAL DOCUMENTATION: JOB ID: [id number] 2010 [employer]- All Rights Reserved Reading location - IP/workstation name: [email or web address]
[2019-11-26 17:18] LABS: ALKALINE PHOSPHATASE 87 U/L (38-126); ASPARTATE AMINO TRANSFERASE 69 U/L (17-59); BILIRUBIN,DIRECT 0.2 mg/dL (0.0-0.4); BILIRUBIN,TOTAL 0.6 mg/dL (0.2-1.3); BLOOD UREA NITROGEN 34 mg/dL (7-20); CALCIUM 8.7 mg/dL (8.4-10.2); GLUCOSE 321 mg/dL (75-110); POTASSIUM 4.6 mmol/L (3.6-5.0); TOTAL PROTEIN 7.3 g/dL (6.3-8.2)
[2019-11-26 17:24] LABS: ANION GAP 23 (5-19); CARBON DIOXIDE 18 mmol/L (22-30); CHLORIDE 92 mmol/L (98-107)
[2019-11-26 17:34] LABS: ABSOLUTE EOSINOPHILS # (AUTO) 0.1 10^3/uL (0.0-0.6); ABSOLUTE LYMPHOCYTES (AUTO) 1.7 10^3/uL (0.5-4.7); ABSOLUTE MONOCYTES (AUTO) 1.4 10^3/uL (0.1-1.4); ABSOLUTE NEUT (AUTO) 16.6 10^3/uL (1.7-8.2); BASOPHILS % (AUTO) 0.2 % (0-2); EOSINOPHILS % (AUTO) 0.3 % (0-6); HEMATOCRIT 50.3 % (37.9-51.0); HEMOGLOBIN 16.6 g/dL (13.5-17.0); LYMPHOCYTES % (AUTO) 8.5 % (13-45); MEAN CORPUSCULAR HEMOGLOBIN 28.3 pg (27.0-33.4); MEAN CORPUSCULAR VOLUME 86 fl (80-97); MONOCYTES % (AUTO) 6.9 % (3-13); PLATELET COUNT 168 10^3/uL (150-450); RED BLOOD COUNT 5.87 10^6/uL (4.35-5.55); RED CELL DISTRIBUTION WIDTH 15.7 % (11.5-14.0); SEGMENTED NEUTROPHILS % (AUTO) 84.1 % (42-78); TOTAL CELLS COUNTED % (AUTO) 100 %; WHITE BLOOD COUNT 19.7 10^3/uL (4.0-10.5)
[2019-11-26] MEDS ORDERED: HEPARIN SOD (PORCINE) 1,000 UNIT/ML 10 ML VIAL IV PRN (18:30)
[2019-11-26] MEDS ORDERED: HEPARIN SODIUM,PORCINE/D5W 25,000 UNIT/250 ML RTUINJ IV PRN (18:30)
--- NOTE | 2019-11-26 18:45 | RADIOLOGY REPORT (SQ) ---
EXAM DESCRIPTION: CT ABD/PELVIS WITH IV ONLY IMAGES COMPLETED DATE/TIME: 11/26/2019 6:20 pm REASON FOR STUDY: post op/distension/sobr/hypotension COMPARISON: None. TECHNIQUE: CT scan of the abdomen and pelvis performed using helical scanning technique with dynamic intravenous contrast injection. No oral contrast. Images reviewed with lung, soft tissue, and bone windows. Reconstructed coronal and sagittal MPR images reviewed. Delayed images for evaluation of the urinary system also acquired. All images stored on PACS. All CT scanners at this facility use dose modulation, iterative reconstruction, and/or weight based d osing when appropriate to reduce radiation dose to as low as reasonably achievable (ALARA). [facility]: Dose Right [facility]: CareDose [facility]: Dose Right [facility]: Teradose 4D [facility]: [employer] CONTRAST TYPE AND DOSE: 74 mL Omnipaque 350- low osmolar. RENAL FUNCTION: BUN 14 creatinine 0.85 RADIATION DOSE: . LIMITATIONS: None. FINDINGS: LOWER CHEST: No significant findings. No nodules or infiltrates. LIVER: Normal size. No masses. No dilated ducts. SPLEEN: Normal size. No focal lesions. PANCREAS: No masses. No significant calcifications. No adjacent inflammation or peripancreatic fluid collections. Pancreatic duct not dilated. GALLBLADDER: Surgically absent. ADRENAL GLANDS: No significant masses or asymmetry. RIGHT KIDNEY AND URETER: No solid masses. No significant calcifications. No hydronephrosis or hyd roureter. LEFT KIDNEY AND URETER: No solid masses. No significant calcifications. No hydronephrosis or hydr oureter. AORTA AND VESSELS: No aneurysm. No dissection. Renal arteries, SMA, celiac without stenosis. RETROPERITONEUM: No retroperitoneal adenopathy, hemorrhage or masses. BOWEL AND PERITONEAL CAVITY: Nondistended bowel. No obvious bowel mass. APPENDIX: Not identified. PELVIS: No mass. No free fluid. Normal bladder. ABDOMINAL WALL: No masses. No hernias. BONES: No significant or acute findings. OTHER: No other significant finding. IMPRESSION: NO SIGNIFICANT OR ACUTE FINDING IN THE ABDOMEN OR PELVIS ON CT SCAN WITH IV CONTRAST. TECHNICAL DOCUMENTATION: JOB ID: [id number] Quality ID # [id number]: Final reports with documentation of one or more dose reduction techniques (e.g., Au tomated exposure control, adjustment of the mA and/or kV according to patient size, use of iterative reconstruction technique) 2010 [employer]- All Rights Reserved Reading location - IP/workstation name: [email or web address]
--- NOTE | 2019-11-26 18:53 | RADIOLOGY REPORT (SQ) ---
EXAM DESCRIPTION: CTA CHEST IMAGES COMPLETED DATE/TIME: 11/26/2019 6:20 pm REASON FOR STUDY: sobr/post op COMPARISON: None. TECHNIQUE: CT scan of the chest performed using helical scanning technique with dynamic intravenous contrast injection. Images reviewed with lung, soft tissue and bone windows. Reconstructed coronal and sagittal MPR images reviewed. Additional 3 dimensional post-processing performed to develop Maximal Intensity Projection images (PR P). All images stored on PACS. All CT scanners at this facility use dose modulation, iterative reconstruction, and/or weight based d osing when appropriate to reduce radiation dose to as low as reasonably achievable (ALARA). [facility]: Dose Right [facility]: CareDose [facility]: Dose Right [facility]: Teradose 4D [facility]: [employer] CONTRAST TYPE AND DOSE: contrast/concentration: Isovue 350.00 mmol/ml; Total Contrast Delivered: 74. 0 ml; Total Saline Delivered: 80.0 ml Contrast bolus optimized for the pulmonary arteries. Not diagnostic for the aorta. RENAL FUNCTION: BUN 14 creatinine 0.85 RADIATION DOSE: CT Rad equipment meets quality standard of care and radiation dose reduction techniq ues were employed. CTDIvol: 29.4 - 52.9 mGy. DLP: 5408 mGy-cm. . LIMITATIONS: None. FINDINGS: LUNGS AND PLEURA: No masses, infiltrates, or pneumothorax. No pleural effusions or pleura l calcifications. AORTA AND GREAT VESSELS: No aneurysm. Contrast bolus not optimized for the aorta. HEART: No pericardial effusion. No significant coronary artery calcifications. PULMONARY ARTERIES: There are large pulmonary emboli in the distal main pulmonary arteries and their branches. Large clot burden. HILAR AND MEDIASTINAL STRUCTURES: No identified masses or abnormal nodes. HARDWARE: None in the chest. UPPER ABDOMEN: See separate report of the CT of the abdomen. THYROID AND OTHER SOFT TISSUES: No masses. No adenopathy. BONES: No acute or significant finding. 3D MIPS: Confirm above findings. OTHER: No other significant finding. IMPRESSION: Bilateral pulmonary emboli. Relatively large clot burden. COMMENT: Pertinent findings on the imaging study reported as a CRITICAL RESULT to ABRAM LOZA MD at18:46 on 11/26/2019. Category of Critical Result: Large pulmonary emboli Quality ID # [id number]: Final reports with documentation of one or more dose reduction techniques (e.g., Au tomated exposure control, adjustment of the mA and/or kV according to patient size, use of iterative reconstruction technique) TECHNICAL DOCUMENTATION: JOB ID: [id number] 2010 [employer]- All Rights Reserved Reading location - IP/workstation name: [email or web address]
[2019-11-26] MEDS ORDERED: ACETAMINOPHEN 325 MG TABLET PO PRN (19:03)
[2019-11-26] MEDS ORDERED: NORMAL SALINE 1000 ML 1,000 ML IV PRN ×2 (19:03→19:59)
--- NOTE | 2019-11-26 19:18 | ER Document Report ---
Entered by IRMA LEROY SCRIBE 11/26/19 [id number] Acting as scribe for:ABRAM LOZA MD ED General - General Stated Complaint: Sepsis Primary Care Provider: YASH PATEL MD [Primary Care Provider] - Follow up as needed Mode of Arrival: Medic Information source: Patient Notes: This 64 year old male patient presents to the emergency department today with complaints of shortness of breath and generalized weakness. Patient had an expiratory laparotomy with lysis of adhesions and deployment of exparel into the subcutaneous tissues on 11/14 and he was discharged from this facility on 2019. He reports that on 11/24/2019 he began to feel generally weak and short of breath but elected to wait until his follow up appointment today with Dr. Cordoba and he was profoundly hypotensive, tachycardic, and tachypneic. He denies any chest pain, fevers, or chills. TRAVEL OUTSIDE OF THE [place] IN LAST 30 DAYS: No - Related Data Allergies/Adverse Reactions: penicillin G [Penicillin G] Allergy (Verified 06/24/12 20:27) Past Medical History - General Information source: Patient, [facility] Records - Social History Smoking Status: Unknown if Ever Smoked Family History: Reviewed & Not Pertinent, CVA, DM, Hypertension, Malignancy - Past Medical History Cardiac Medical History: Reports: Hx Hypercholesterolemia, Hx Hypertension Pulmonary Medical History: Reports: Hx Sleep Apnea Endocrine Medical History: Reports: Hx Diabetes Mellitus Type 2 GI Medical History: Reports: Hx Gastroesophageal Reflux Disease Past Surgical History: Reports: Hx Adenoidectomy, Hx Cholecystectomy, Hx Orthopedic Surgery, Hx Tonsillectomy - Immunizations Immunizations up to date: No Hx Diphtheria, Pertussis, Tetanus Vaccination: Yes Review of Systems - Review of Systems Constitutional: See HPI, Weakness. denies: Chills, Fever EENT: No symptoms reported Cardiovascular: denies: Chest pain Respiratory: See HPI, Short of breath Gastrointestinal: No symptoms reported Genitourinary: No symptoms reported Male Genitourinary: No symptoms reported Musculoskeletal: See HPI, Leg swelling, Ankle swelling Skin: No symptoms reported Hematologic/Lymphatic: No symptoms reported Neurological/Psychological: No symptoms reported -: Yes All other systems reviewed and negative Physical Exam - Vital signs Vitals: Temp Resp BP Pulse Ox 96.6 F L 24 H 54/22 L 95 11/26/19 16:30 08/07/20 16:30 11/26/19 16:30 11/26/19 16:30 - Notes Notes: Physical Exam: General: Alert, in severe respiratory distress. HEENT: Normocephalic. Atraumatic. PERRL. Extraocular movements intact. Oropharynx clear. Neck: Supple. Non-tender. Respiratory: Severe respiratory distress. Tachypneic into the upper 20s. Lungs are clear and equal bilaterally. Cardiovascular: Tachycardic. Hypotensive. Abdominal: Healing midline surgical scar with analia. Clean, dry, and intact. Back: No gross abnormalities. Extremities: Moves all four extremities. Upper extremities: Normal inspection. Normal ROM. Lower extremities: Bilateral lower extremity edema. Normal ROM. Neurological: Normal cognition. AAOx4. Normal speech. Psychological: Normal affect. Normal Mood. Skin: Warm. Dry. Normal color. Course - Re-evaluation Re-evalutation: 11/26/19 19:07 Patient presented in extremis with hypotension systolic 52 tachycardic hypoxic and tachypneic 11/26/19 22:38 Patient is SARS V 19-. Patient has been stabilized and is stable for transfer transport to [facility]. 11/26/19 22:40 Patient has been accepted by the ED Dr. Jeter from the ED ED transfer to evaluation by ground MICU unit. - Vital Signs Vital signs: Temp Pulse Resp BP Pulse Ox 96.6 F L 22 H 83/71 L 98 11/26/19 16:30 11/26/19 22:00 11/26/19 21:51 11/26/19 22:00 Initial vital signs shows a blood pressure 54/22 with a respiratory rate of 24 and a pulse oximetry 95 11/26/19 19:10 Patient appears septic and he has a thrombotic disease in his legs and chest wall complication of surgery. - Laboratory Result Diagrams: 11/26/19 16:28 11/26/19 16:28 Laboratory results interpreted by me: 11/26/19 11/26/19 11/26/19 16:28 16:28 16:28 WBC 19.7 H RBC 5.87 H RDW 15.7 H Lymph % (Auto) 8.5 L Absolute Neuts (auto) 16.6 H Seg Neutrophils % 84.1 H PT 16.1 H VBG pH VBG pCO2 VBG HCO3 Sodium Chloride Carbon Dioxide Anion Gap BUN Creatinine Est GFR ( Amer) Est GFR (MDRD) Non-Af Glucose Lactic Acid 4.4 H AST ALT Creatine Kinase CK-MB (CK-2) 11/26/19 11/26/19 11/26/19 16:28 16:28 19:56 WBC RBC RDW Lymph % (Auto) Absolute Neuts (auto) Seg Neutrophils % PT VBG pH 7.27 L VBG pCO2 32.0 L VBG HCO3 14.3 L Sodium 133.0 L Chloride 92 L Carbon Dioxide 18 L Anion Gap 23 H BUN 34 H Creatinine 1.69 H Est GFR ( Amer) 50 L Est GFR (MDRD) Non-Af 41 L Glucose 321 H Lactic Acid 3.5 H AST 69 H ALT 52 H Creatine Kinase CK-MB (CK-2) 11/26/19 11/26/19 19:56 19:56 WBC RBC RDW Lymph % (Auto) Absolute Neuts (auto) Seg Neutrophils % PT VBG pH VBG pCO2 VBG HCO3 Sodium Chloride Carbon Dioxide Anion Gap BUN Creatinine Est GFR ( Amer) Est GFR (MDRD) Non-Af Glucose Lactic Acid AST ALT Creatine Kinase 335 H CK-MB (CK-2) 8.10 H Laboratory work shows a leukocytosis elevated lactic acid and acidosis - Diagnostic Test Radiology reviewed: Image reviewed, Reports reviewed Radiology results interpreted by me: 11/26/19 19:15 Chest x-ray shows no acute process Chest abdomen CTA shows bilateral pulmonary emboli with a large clot burden present. CT abdomen and pelvis with IV and oral contrast shows no acute process. - EKG Interpretation by Me Additional EKG results interpreted by me: 11/26/19 19:13 Twelve-lead EKG shows sinus tachycardia left axis deviation inferiorly Q waves, and borderline R wave progression in the anterior leads and a prolonged QT interval. Discharge - Discharge Clinical Impression: Bilateral pulmonary embolism, Elevated lactic acid level, Sepsis associated hypotension, Leucocytosis Condition: Critical Disposition: Critical Access Hospital Referrals: YASH PATEL MD [Primary Care Provider] - Follow up as needed I personally performed the services described in the documentation, reviewed and edited the documentation which was dictated to the scribe in my presence, and it accurately records my words and actions.
[2019-11-26] MEDS ORDERED: DEXTROSE 50%-WATER 25 GM/50 ML DISP.SYRIN IV PRN ×2 (19:41)
[2019-11-26] MEDS ORDERED: GLUCAGON,HUMAN RECOMB 1 MG INJ IM PRN (19:41)
[2019-11-26] MEDS ORDERED: DEXTROSE 40% GEL 15 GM TUBE PO PRN ×2 (19:41)
--- NOTE | 2019-11-26 20:03 | PDOC H&P ---
History of Present Illness Admission Date/PCP: YASH PATEL MD Patient complains of: Severe SOB History of Present Illness: CHUCKY VASQUEZ is a 64 year old male with PMH significant for HTN, dyslipidemia, DM II, CASA (on CPAP), and recent's partial small bowel obstruction s/p small bowel surgery on 11/15/2019. The patient was discharged to home following surge ry on 11/23/19 and since that time the patient reports that he has had lower extremity edema. Approximately 2 days ago he began to experiencing CASTILLO which is gotten progressively worse over the past 2 days to the point where he now has severe shortness of breath at rest. Today he had a routine follow-up appointment scheduled with his surgeon and when he arrived to his surgeon's office he was severely short of breath and they activated EMS to bring him to the emergency department. In the emergency department the patient was found to be tachypneic and hypoxic. A CT of the chest was completed which revealed bilateral pulmonary emboli with a relatively large clot burden. CT of the abdomen and pelvis did not reveal any significant acute findings. Given the patient's recent surgery in the ED the patient received vancomycin 1500 mg IV x1 and aztreonam 1.5 mg IV x1. A heparin drip was ordered and the hospitalist team was consulted to admit the patient for further evaluation and treatment. Past Medical History Cardiac Medical History: Reports: Hyperlipidema, Hypertension Pulmonary Medical History: Reports: Sleep Apnea EENT Medical History: Reports: None Neurological Medical History: Reports: None Endocrine Medical History: Reports: Diabetes Mellitus Type 2 Renal/ Medical History: Reports: None Malignancy Medical History: Reports: None GI Medical History: Reports: Gastroesophageal Reflux Disease Denies: Cirrhosis, Crohn's Disease, Ulcerative Colitis Musculoskeltal Medical History: Reports: None, Gout Skin Medical History: Reports: None, Eczema Psychiatric Medical History: Reports: None, Depression Traumatic Medical History: Reports: None, Traumatic Brain Injury Hematology: Reports: None Infectious Medical History: Reports: None, HIV Past Surgical History Past Surgical History: Reports: Cholecystectomy, Orthopedic Surgery, Tonsillectomy - and addenoids, Other - Recent small bowel surgery (11/15/2019) Social History Information Source: Patient Lives with: Spouse/Significant other Smoking Status: Never Smoker Frequency of Alcohol Use: None Hx Recreational Drug Use: No Drugs: None Hx Prescription Drug Abuse: No Family History Family History: CVA, DM, Hypertension, Malignancy Parental Family History Reviewed: Yes - Father - CAD, mother -HTN/Parkinson's Children Family History Reviewed: Yes Sibling(s) Family History Reviewed.: Yes Medication/Allergy Home Medications: Glimepiride [Amaryl 4 Mg Tablet] 8 mg PO QHS 06/24/12 Empagliflozin/Metformin HCl [Synjardy Xr 12.5-1,000 mg Tab] 1 tab PO BID 11/14/19 Insulin Degludec [Tresiba Flextouch U-200] 100 units SUBCUT QHS 11/14/19 Lisinopril/Hydrochlorothiazide [Lisinopril-Hctz 10-12.5 mg Tab] 1 tab PO DAILY 11/14/19 Pioglitazone HCl [Actos 30 mg Tablet] 30 mg PO DAILY 11/14/19 Simvastatin [Zocor 10 mg Tablet] 10 mg PO QHS 11/14/19 Allergies/Adverse Reactions: penicillin G [Penicillin G] Allergy (Verified 06/24/12 20:27) Review of Systems Constitutional: ABSENT: chills, fever(s) Eyes: ABSENT: visual disturbances Ears: ABSENT: hearing changes Nose, Mouth, and Throat: ABSENT: headache(s), sore throat, vertigo Cardiovascular: PRESENT: dyspnea on exertion, edema. ABSENT: chest pain, palpitations Respiratory: PRESENT: dyspnea. ABSENT: cough, hemoptysis, sputum Gastrointestinal: ABSENT: abdominal pain, coffee ground emesis, constipation, diarrhea, dysphagia, heartburn, hematemesis, hematochezia, melena, nausea, vomiting Genitourinary: ABSENT: difficulty urinating, dysuria Musculoskeletal: ABSENT: back pain Integumentary: PRESENT: wounds - Mid abdominal incision with intact skin clips. ABSENT: diaphoresis Neurological: ABSENT: abnormal gait, abnormal speech, confusion, focal weakness, lack of coordination, memory loss, numbness, syncope, tingling, weakness Psychiatric: ABSENT: anxiety, depression Endocrine: ABSENT: cold intolerance, heat intolerance, polyphagia, polyuria Hematologic/Lymphatic: ABSENT: easy bleeding, easy bruising Physical Exam Vital Signs: Temp Pulse Resp BP Pulse Ox 96.6 F L 24 H 54/22 L 95 11/26/19 16:30 11/26/19 16:30 11/26/19 16:30 11/26/19 16:30 Intake & Output 11/25/19 11/26/19 11/27/19 06:59 06:59 06:59 Intake Total 1000 Balance 1000 Weight 124.738 kg General appearance: PRESENT: cooperative, obese, other - Moderate respiratory distress Head exam: PRESENT: atraumatic, normocephalic Eye exam: PRESENT: conjunctiva pink Ear exam: PRESENT: normal external ear exam Mouth exam: PRESENT: moist, tongue midline Neck exam: ABSENT: JVD Respiratory exam: PRESENT: clear to auscultation imelda, decreased breath sounds - Entry diminished at bases bilaterally, symmetrical, tachypnea. ABSENT: accessory muscle use, unlabored Cardiovascular exam: PRESENT: RRR, +S1, +S2, tachycardia Pulses: PRESENT: normal carotid pulses, normal radial pulses Vascular exam: PRESENT: normal capillary refill GI/Abdominal exam: PRESENT: normal bowel sounds, tenderness - Surgically tender, other - Abdomen full and round bilateral Rectal exam: PRESENT: deferred Extremities exam: PRESENT: pedal edema, +2 edema - 3 to 4 mm bilateral pretibial pitting edema Neurological exam: PRESENT: alert, awake, oriented to person, oriented to place, oriented to time, oriented to situation, CN II-XII grossly intact Psychiatric exam: PRESENT: appropriate affect, normal mood. ABSENT: agitated, anxious Skin exam: PRESENT: dry, normal color, warm Results Laboratory Results: 11/26/19 16:28 11/26/19 16:28 11/26/19 11/26/19 11/26/19 16:28 16:28 16:28 WBC 19.7 H RBC 5.87 H Hgb 16.6 Hct 50.3 MCV 86 MCH 28.3 MCHC 33.0 RDW 15.7 H Plt Count 168 Seg Neutrophils % 84.1 H VBG pH VBG pCO2 VBG HCO3 VBG Base Excess Sodium 133.0 L Potassium 4.6 Chloride 92 L Carbon Dioxide 18 L Anion Gap 23 H BUN 34 H Creatinine 1.69 H Est GFR ( Amer) 50 L Glucose 321 H Lactic Acid 4.4 H Calcium 8.7 Total Bilirubin 0.6 AST 69 H Alkaline Phosphatase 87 Total Protein 7.3 Albumin 4.0 11/26/19 16:28 WBC RBC Hgb Hct MCV MCH MCHC RDW Plt Count Seg Neutrophils % VBG pH 7.27 L VBG pCO2 32.0 L VBG HCO3 14.3 L VBG Base Excess -11.4 Sodium Potassium Chloride Carbon Dioxide Anion Gap BUN Creatinine Est GFR ( Amer) Glucose Lactic Acid Calcium Total Bilirubin AST Alkaline Phosphatase Total Protein Albumin 11/26/19 16:28 Troponin I 0.050 Impressions: Chest X-Ray 11/26/19 16:30 IMPRESSION: NO ACUTE RADIOGRAPHIC FINDING IN THE CHEST. Chest/Abdomen CTA 11/26/19 16:57 IMPRESSION: Bilateral pulmonary emboli. Relatively large clot burden. Abdomen/Pelvis CT 11/26/19 16:59 IMPRESSION: NO SIGNIFICANT OR ACUTE FINDING IN THE ABDOMEN OR PELVIS ON CT SCAN WITH IV CONTRAST. Assessment and Plan - Diagnosis (1) Bilateral pulmonary embolism Is this a current diagnosis for this admission?: Yes Plan: CTA chest reveals bilateral pulmonary emboli with significant clot burden Given patient's recent surgical intervention he is not a candidate for thrombolytic therapy Check bilateral LE venous Dopplers Check echocardiogram Initiate full dose anticoagulation ICU team consulted to evaluate for ICU placement (2) Acute respiratory failure with hypoxia Is this a current diagnosis for this admission?: Yes Plan: 2/2 above Placed patient on CPAP to see if this will improve his work of breathing Supplemental oxygen, titrate as needed (3) Hypertension Qualifiers: Hypertension type: essential hypertension Qualified Code(s): I10 - Essential (primary) hypertension Is this a current diagnosis for this admission?: Yes Plan: Patient was hypotensive on presentation and his SBP remains in the 80-100 range Hold antihypertensive therapy at this time Patient is asymptomatic so at this point I would not consider pressor support, but if he becomes symptomatic or his BP deteriorates further this may be necessary Echocardiogram pending (4) Dyslipidemia Is this a current diagnosis for this admission?: Yes Plan: Continue simvastatin 10 mg p.o. daily at bedtime (5) Leucocytosis Is this a current diagnosis for this admission?: Yes Plan: Patient received a dose of vancomycin 1500 mg IV x1 and aztreonam 1.5 g IV x1 in the ED Patient is afebrile and nontoxic in appearance Leukocytosis may be 2/[address] of the abdomen/pelvis was unremarkable for intra-abdominal process Blood culture sent and pending Monitor off antibiotics at this time Will reevaluate in a.m. (6) CASA (obstructive sleep apnea) Is this a current diagnosis for this admission?: Yes Plan: Patient uses CPAP at at bedtime with a setting of 16 Patient on CPAP 2/2 acute respiratory distress, continue (7) DM II (diabetes mellitus, type II), controlled Is this a current diagnosis for this admission?: Yes Plan: Hold oral diabetic medications at this time Start FS BS with SSI correction scale Reevaluate for starting oral agents in a.m. - Plan Summary Summary: Patient was evaluated by Dr. Montejo of the intensive care team. He requested that the patient be placed on CPAP to see if it would ease his work of breathing. The ICU team will reevaluate the patient and make a determination whether the patient is appropriate for ICU admission. - Time Time Spent with patient: 35 or more minutes Medications reviewed and adjusted accordingly: Yes Anticipated Discharge Disposition: Home, Self Care Anticipated Discharge Timeframe: Unable to determine at this time
[2019-11-26] MEDS ORDERED: DOPAMINE HCL/DEXTROSE 5%-WATER 800 MG/250 ML RTUINJ IV ONE (20:18)
[2019-11-26] MEDS ORDERED: DOPAMINE HCL/DEXTROSE 5%-WATER 800 MG/250 ML RTUINJ IV PRN (20:22)
[2019-11-26] MEDS ORDERED: SIMVASTATIN 10 MG TABLET PO ONE (20:30)
[2019-11-26 20:34] LABS: CREATINE KINASE MB 8.1 ng/mL (<4.55); TROPONIN I 0.063 ng/mL
--- NOTE | 2019-11-26 20:34 | EKG REPORT ---
SEVERITY:- ABNORMAL ECG - SINUS TACHYCARDIA BORDERLINE LEFT AXIS DEVIATION BORDERLINE INFERIOR Q WAVES BORDERLINE R WAVE PROGRESSION, ANTERIOR LEADS PROLONGED QT INTERVAL RBBB. : Confirmed by: Keyshawn Barnes MD 26-Nov-2019 20:34:29
[2019-11-26 23:02] LABS: VENOUS BLOOD BASE EXCESS -9.2 mmol/L; VENOUS BLOOD HCO3 17.4 mmol/L (20-32); VENOUS BLOOD PCO2 40.4 mmHg (35-63); VENOUS BLOOD PH 7.25 (7.30-7.42)
[2019-11-26 23:28] VITALS: BP 96/72
[2019-11-27] MEDS ORDERED: INSULIN LISPRO 100 UNIT/ML 3 ML VIAL SUBCUT SCH
[2019-11-27 00:25] LABS: ANION GAP 16 (5-19); BLOOD UREA NITROGEN 33 mg/dL (7-20); CALCIUM 7.4 mg/dL (8.4-10.2); CARBON DIOXIDE 18 mmol/L (22-30); CHLORIDE 100 mmol/L (98-107); GLUCOSE 255 mg/dL (75-110); POTASSIUM 4.7 mmol/L (3.6-5.0)
[2019-11-27] MEDS ORDERED: DEXTROSE 5%-WATER 250 ML with NOREPINEPHRINE BITARTRATE 4 MG IV PRN ×2 (00:40)
[2019-11-27] MEDS ORDERED: NOREPINEPHRINE BITARTRATE INJ/PF 4 MG/4 ML SDV IV ONE (00:46)
--- NOTE | 2019-11-27 01:09 | ER Document Report ---
Doctor's Note Notes: 11/27/19 01:07 Patient turned over to me pending transfer for bilateral PEs with significant clot burden and hypotension. Patient treated for sepsis with Banken aztreonam and repeat lactates trending down. Patient remained stable on BiPAP in ED and blood pressures mostly above map 65, trended down over last half hour and patient was started on Levophed low-dose to maintain map 65. Patient remains appropriate for transfer, team is here now.
== END 2019-11-27 01:30 | disposition short-term general hospital (02) ==
LOC: ER 16:25 → UNDOADMIN 19:36 → EH 19:36 → UNDOADMIN 20:25 → ER 11-27 01:30
DX: A41.9 Sepsis, unspecified organism (principal); I26.99 Other pulmonary embolism without acute cor pulmonale; I95.89 Other hypotension; D72.829 Elevated white blood cell count, unspecified; R74.0 Nonspecific elevation of levels of transaminase and lactic acid dehydrogenase [LDH]; R00.0 Tachycardia, unspecified; R53.1 Weakness; R06.00 Dyspnea, unspecified; R10.819 Abdominal tenderness, unspecified site; R09.02 Hypoxemia; E78.00 Pure hypercholesterolemia, unspecified; I10 Essential (primary) hypertension; E11.9 Type 2 diabetes mellitus without complications; Z90.49 Acquired absence of other specified parts of digestive tract; Z88.0 Allergy status to penicillin; Z98.890 Other specified postprocedural states; Z79.4 Long term (current) use of insulin; Z20.828 Contact with and (suspected) exposure to other viral communicable diseases
CPT/HCPCS: 93005; 96376; 99285; 96361; 96365; 96366; 96367; 96368; 36415; 87040; 82553; 82962; 82550; 83605; 85025; 85610; 85730; 87635; 80053; 84484; 82803; 71045; 71275; 74177; 93010; 94660; J1644 ×2; J1265; J1815; J3490 ×2; J7030; J3370; C9803